=== PATIENT | female | born 1950 | race Caucasian/White ===

== ENCOUNTER → 2018-01-26 09:05 | Outpatient (CLI) | payer MEDICARE, SELFPAY ==
[2018-01-26 12:44] LABS: Alanine Aminotransferase 34 U/L (12-78); Albumin Level 3.5 gm/dL (3.4-5.0); Albumin/Globulin Ratio 0.9 (1.1-1.8); Alkaline Phosphatase 60 U/L (46-116); Anion Gap 11.5 mEq/L (5-15); Aspartate Amino Transferase 25 U/L (15-37); Bilirubin,Total 0.4 mg/dL (0.2-1.0); Blood Urea Nitrogen 20 mg/dL (7-18); Calcium 9.1 mg/dL (8.5-10.1); Carbon Dioxide 29 mmol/L (21.0-32.0); Chloride 104 mmol/L (98-107); Chol/HDL Ratio 3.5 (1-3.5); Cholesterol 156 mg/dL (140-200); Creatinine,Serum 0.88 mg/dL (0.55-1.02); Estimated Glomerular Filt Rate 64 ml/min (>60); GFR (African American) 78 ML/MIN (>60); Globulin 3.7 gm/dl (1.3-3.2); Glucose 129 mg/dL (74-106); HDL Cholesterol 44 mg/dL (29-89); LDL Cholesterol 84 mg/dL (0-130); Potassium 4.5 mmoL/L (3.5-5.1); Sodium 140 mmol/L (136-145); Total Protein,Serum 7.2 gm/dL (6.4-8.2); Triglycerides 142 mg/dL (30-200); VLDL Cholesterol 28 mg/dL (0-40)
== END ==
PROVIDERS: Visit Provider Physician Assistant
DX: E03.9 Hypothyroidism, unspecified (principal); E11.9 Type 2 diabetes mellitus without complications; E78.5 Hyperlipidemia, unspecified
CPT/HCPCS: 36415; 80053; 80061; 83036; 84443

== ENCOUNTER → 2018-06-02 11:22 | Outpatient (CLI) | payer MEDICARE, SELFPAY | PROVIDERS: PCP Family Medicine; Visit Provider Family Medicine | DX: G47.00 Insomnia, unspecified (principal); R06.83 Snoring; E66.3 Overweight; G47.33 Obstructive sleep apnea (adult) (pediatric) | CPT/HCPCS: 95806 ==

== ENCOUNTER → 2018-09-18 08:55 | Outpatient (CLI) | payer MEDICARE, SELFPAY ==
--- NOTE | 2018-09-18 08:58 | MM_ITS ---
MM Dig screening mamm BI w/CAD CAD Screening COMPARISON: Digital mammograms with CAD 07/08/2016 and analog mammograms 01/13/2010 INDICATION: There is no personal or family history of breast cancer TECHNIQUE: Standard CC and MLO images were obtained. R2 CAD reviewed. FINDINGS: The breasts are composed primarily of fat with scattered fibroglandular densities throughout each breast. There are 2 mole markers left breast on this single mole marker right breast. There are few scattered benign-appearing microcalcifications in each breast. There is a stable tiny benign-appearing nodular density near the axillary tail right breast. There is no suspicious lesion and there are no suspicious microcalcifications. IMPRESSION: Fibrofatty parenchyma with no suspicious lesion seen BI-RADS Category: 2 Benign Finding(s) RECOMMENDED FOLLOW-UP: 1YR - 1 YEAR FOLLOW-UP (A letter has been sent to the patient regarding results of the study.)
--- NOTE | 2018-09-18 08:58 | XR_ITS ---
XR DEXA axial skeleton HISTORY: ITS.REASON: POST MENOPAUSAL ORDERING PHYSICIAN: Anila Marc MD PATIENT AGE: 68 years COMPARISON: None FINDINGS: The BMD measured at the Left femoral neck is 0.883 g/cm squared with a T score of -1.1. This is considered Osteopenic according to the World Health Organization criteria. Fracture risk is Moderate. Treatment is advised. L1 L4 density has a T score of 1.5 IMPRESSION: Osteopenia with moderate fracture risk. Treatment is advised. Recommend follow-up exam September 2020
--- NOTE | 2018-09-18 10:32 | XR_ITS ---
XR knee RT 3V HISTORY: Twisting injury with pain ITS.REASON: RT KNEE PAIN ORDERING PHYSICIAN: Anila Marc MD PATIENT AGE: 68 years COMPARISON: None FINDINGS: No fracture or dislocation. No lytic or blastic change. Normal mineralization. There are minimal osteoarthritic changes of the patellofemoral joint and there is chondrocalcinosis of the lateral meniscus. Nonspecific vascular calcifications in the popliteal region are present. IMPRESSION: 1. No acute finding. 2. Degenerative changes
== END ==
PROVIDERS: PCP Family Medicine; Visit Provider Emergency Medicine
DX: Z12.31 Encounter for screening mammogram for malignant neoplasm of breast (principal); Z78.0 Asymptomatic menopausal state; M25.561 Pain in right knee
CPT/HCPCS: 73562; 77067; 77080

== ENCOUNTER → 2018-10-09 16:22 | Outpatient (CLI) | payer MEDICARE, SELFPAY ==
[2018-10-09 18:08] LABS: Ferritin 31 ng/mL (8-388); Iron 39 ug/dl (28-170)
== END ==
PROVIDERS: Visit Provider Specialist
DX: D64.9 Anemia, unspecified (principal); G25.81 Restless legs syndrome; G47.33 Obstructive sleep apnea (adult) (pediatric)
CPT/HCPCS: 36415; 82728; 83540

== ENCOUNTER → 2019-01-04 08:22 | Outpatient (CLI) | payer MEDICARE, SELFPAY ==
[2019-01-04 10:24] LABS: Alanine Aminotransferase 37 U/L (12-78); Albumin Level 3.5 gm/dL (3.4-5.0); Albumin/Globulin Ratio 0.9 (1.1-1.8); Alkaline Phosphatase 55 U/L (46-116); Anion Gap 14.2 mEq/L (5-15); Aspartate Amino Transferase 23 U/L (15-37); Bilirubin,Total 0.8 mg/dL (0.2-1.0); Blood Urea Nitrogen 15 mg/dL (7-18); Calcium 8.9 mg/dL (8.5-10.1); Carbon Dioxide 27 mmol/L (21.0-32.0); Chloride 101 mmol/L (98-107); Chol/HDL Ratio 4.1 (1-3.5); Cholesterol 172 mg/dL (140-200); Creatinine,Serum 0.88 mg/dL (0.55-1.02); Estimated Glomerular Filt Rate 64 ml/min (>60); GFR (African American) 78 ML/MIN (>60); Glucose 178 mg/dL (74-106); HDL Cholesterol 42 mg/dL (29-89); LDL Cholesterol 92 mg/dL (0-130); Potassium 4.2 mmoL/L (3.5-5.1); Sodium 138 mmol/L (136-145); Total Protein,Serum 7.5 gm/dL (6.4-8.2); Triglycerides 188 mg/dL (30-200); VLDL Cholesterol 38 mg/dL (0-40)
[2019-01-04 10:31] LABS: Hemoglobin A1C 7.9 % (0.0-7.0)
== END ==
PROVIDERS: Visit Provider Nurse Practitioner Family
DX: E11.9 Type 2 diabetes mellitus without complications (principal); E78.5 Hyperlipidemia, unspecified; I10 Essential (primary) hypertension; Z79.84 Long term (current) use of oral hypoglycemic drugs
CPT/HCPCS: 36415; 80053; 80061; 83036

== ENCOUNTER → 2019-02-19 08:35 | Outpatient (POV) | payer MEDICARE, SELFPAY | PROVIDERS: Visit Provider Nurse Practitioner Family | DX: Z00.00 Encounter for general adult medical examination without abnormal findings (principal) ==

== ENCOUNTER → 2019-04-09 08:40 | Outpatient (POV) | payer MEDICARE, SELFPAY | PROVIDERS: PCP Family Medicine; Visit Provider Nurse Practitioner Family | DX: Z00.00 Encounter for general adult medical examination without abnormal findings (principal) ==

== ENCOUNTER → 2019-06-25 09:20 | Outpatient (CLI) | payer MEDICARE, SELFPAY ==
[2019-06-25 10:57] LABS: Alanine Aminotransferase 44 U/L (12-78); Albumin Level 3.4 gm/dL (3.4-5.0); Albumin/Globulin Ratio 0.9 (1.1-1.8); Alkaline Phosphatase 46 U/L (46-116); Anion Gap 12.3 mEq/L (5-15); Aspartate Amino Transferase 29 U/L (15-37); Bilirubin,Total 0.5 mg/dL (0.2-1.0); Blood Urea Nitrogen 16 mg/dL (7-18); Calcium 8.9 mg/dL (8.5-10.1); Carbon Dioxide 29 mmol/L (21.0-32.0); Chloride 102 mmol/L (98-107); Chol/HDL Ratio 3.2 (1-3.5); Cholesterol 155 mg/dL (140-200); Creatinine,Serum 0.92 mg/dL (0.55-1.02); Estimated Glomerular Filt Rate 61 ml/min (>60); Free T4 (Free Thyroxine) 0.91 ng/dl (0.76-1.46); GFR (African American) 74 ML/MIN (>60); Globulin 3.6 gm/dl (1.3-3.2); Glucose 198 mg/dL (74-106); HDL Cholesterol 49 mg/dL (29-89); LDL Cholesterol 74 mg/dL (0-130); Potassium 4.3 mmoL/L (3.5-5.1); Sodium 139 mmol/L (136-145); Triglycerides 159 mg/dL (30-200); VLDL Cholesterol 32 mg/dL (0-40)
[2019-06-25 12:37] LABS: Hemoglobin A1C 8.2 % (0.0-7.0)
== END ==
PROVIDERS: Visit Provider Physician Assistant
DX: E11.9 Type 2 diabetes mellitus without complications (principal); E78.5 Hyperlipidemia, unspecified; E03.9 Hypothyroidism, unspecified; I10 Essential (primary) hypertension; Z79.84 Long term (current) use of oral hypoglycemic drugs
CPT/HCPCS: 36415; 80053; 80061; 83036; 84439; 84443

== ENCOUNTER → 2019-09-21 08:25 | Outpatient (CLI) | payer MEDICARE, SELFPAY ==
[2019-09-21 10:41] LABS: Hemoglobin A1C 10.1 % (0.0-7.0)
[2019-09-21 13:39] LABS: Alanine Aminotransferase 58 U/L (12-78); Albumin Level 3.7 gm/dL (3.4-5.0); Albumin/Globulin Ratio 1.1 (1.1-1.8); Alkaline Phosphatase 51 U/L (46-116); Amylase 99 U/L (25-115); Anion Gap 15.1 mEq/L (5-15); Aspartate Amino Transferase 53 U/L (15-37); Bilirubin,Total 0.7 mg/dL (0.2-1.0); Blood Urea Nitrogen 20 mg/dL (7-18); Calcium 9.3 mg/dL (8.5-10.1); Carbon Dioxide 27 mmol/L (21.0-32.0); Chloride 99 mmol/L (98-107); Chol/HDL Ratio 3.6 (1-3.5); Cholesterol 167 mg/dL (140-200); Creatinine,Serum 1.61 mg/dL (0.55-1.02); Estimated Glomerular Filt Rate 32 ml/min (>60); Free T4 (Free Thyroxine) 1.29 ng/dl (0.76-1.46); GFR (African American) 39 ML/MIN (>60); Globulin 3.5 gm/dl (1.3-3.2); Glucose 204 mg/dL (74-106); HDL Cholesterol 47 mg/dL (29-89); LDL Cholesterol 74 mg/dL (0-130); Lipase 304 u/L (73-393); Potassium 4.1 mmoL/L (3.5-5.1); Sodium 137 mmol/L (136-145); Thyroid Stimulating Hormone 3.66 uIU/ml (0.358-3.740); Total Protein,Serum 7.2 gm/dL (6.4-8.2); Triglycerides 228 mg/dL (30-200); VLDL Cholesterol 46 mg/dL (0-40)
== END ==
PROVIDERS: Visit Provider Physician Assistant
DX: R11.2 Nausea with vomiting, unspecified (principal); E03.9 Hypothyroidism, unspecified; E11.9 Type 2 diabetes mellitus without complications; E78.5 Hyperlipidemia, unspecified; R00.2 Palpitations
CPT/HCPCS: 36415; 80053; 80061; 82150; 83036; 83690; 84439; 84443; 93225; 93226

== ENCOUNTER → 2019-10-18 09:48 | Outpatient (CLI) | payer MEDICARE, SELFPAY ==
--- NOTE | 2019-10-18 09:51 | MM_ITS ---
PROCEDURE: MM DIG SCREENING MAMM BI W/CAD CLINICAL INDICATION: SCREENING There is a history of breast cancer patient's sister COMPARISON: DIGMAMMS MAMMOGRAM SCREEN-CREW CALLER N/C from 01/13/2010 [facility] DIG MAMM-SCREEN MIK from 07/08/2016 [facility] MM Dig screening mamm BI w/CAD from 09/18/2018 TECHNIQUE: Standard CC and MLO images and 3D Tomosynthesis was obtained. R2 CAD reviewed. FINDINGS: Breasts are composed primarily of fat with scattered fibroglandular densities throughout each breast. There are few benign-appearing microcalcifications in each breast. There are stable tiny nodular densities deep within the right breast near the axillary tail likely intramammary node. Ashwin images were reviewed. There is no suspicious lesion and no suspicious microcalcifications. IMPRESSION: Fibrofatty parenchyma with no suspicious lesions seen BI-RAD Category: 2 Benign Finding(s) FOLLOW-UP: 1YR 1 Year Follow-up (A letter has been sent to the patient regarding results of the study.) Dictated by: Dr. Rhett Cao MD 10/20/2019 10:[address] Rhett Cao MD in [place] 10/20/2019 10:20
== END ==
PROVIDERS: PCP Family Medicine; Visit Provider Family Medicine
DX: Z12.31 Encounter for screening mammogram for malignant neoplasm of breast (principal)
CPT/HCPCS: 77063; 77067

== ENCOUNTER → 2019-11-19 15:16 | Outpatient (CLI) | payer MEDICARE, SELFPAY ==
[2019-11-19 17:44] LABS: Ferritin 60.6 ng/ml (11.1-264)
== END ==
PROVIDERS: Visit Provider Specialist
DX: E83.10 Disorder of iron metabolism, unspecified (principal)
CPT/HCPCS: 36415; 82728

== ENCOUNTER → 2020-02-04 17:11 | Outpatient (CLI) | payer MEDICARE, SELFPAY ==
[2020-02-04 20:42] LABS: Ferritin 37.7 ng/ml (11.1-264)
== END ==
PROVIDERS: Visit Provider Nurse Practitioner Family
DX: E83.10 Disorder of iron metabolism, unspecified (principal); G25.81 Restless legs syndrome
CPT/HCPCS: 36415; 82728

== ENCOUNTER → 2020-02-07 08:35 | Outpatient (CLI) | payer MEDICARE, SELFPAY ==
[2020-02-07 09:03] LABS: Basophils # 0.1 K/mm3 (0-0.2); Basophils % 0.6 % (0.1-2.0); Eosinophils # 0.4 K/mm3 (0.0-0.4); Eosinophils % 4.6 % (0.1-12.0); Hematocrit 39.2 % (37.0-47.0); Hemoglobin 13.3 g/dL (12.2-16.2); Lymphocytes # 2.4 K/mm3 (0.7-4.5); Lymphocytes % 26.8 % (10-50); Mean Corpuscular HGB Conc 33.9 g/dL (31.8-35.4); Mean Corpuscular Hemoglobin 28.8 pg (27.0-31.2); Mean Corpuscular Volume 85.1 fl (81-99); Mean Platelet Volume 6.8 fl (7.4-10.4); Monocytes # 0.3 K/mm3 (0.1-1.0); Monocytes % 3.8 % (1.7-9.3); Neutrophils # 5.8 K/mm3 (1.8-7.8); Neutrophils % 64.2 % (37.0-80.0); Platelet Count 309 K/mm3 (142-424); Red Blood Count 4.61 M/mm3 (4.20-5.40); Red Cell Distribution Width 13.9 % (11.5-17.5); White Blood Count 9.1 K/mm3 (4.8-10.8)
[2020-02-08 08:13] LABS: Iron 45 ug/dL (27-139); UIBC 258 ug/dL (118-369)
[2020-02-08 12:06] LABS: Iron Saturation 15 % (15-55)
== END ==
PROVIDERS: Visit Provider Nurse Practitioner Family
DX: E83.10 Disorder of iron metabolism, unspecified (principal)
CPT/HCPCS: 36415; 83540; 83550; 85025

== ENCOUNTER → 2020-04-03 08:26 | Outpatient (CLI) | payer MEDICARE, SELFPAY ==
[2020-04-03 09:07] LABS: Chloride 94 mmol/L (98-107)
[2020-04-03 09:08] LABS: Potassium 4.4 mmoL/L (3.5-5.1); Sodium 132 mmol/L (136-145)
[2020-04-03 09:10] LABS: Alanine Aminotransferase 31 U/L (12-78); Alkaline Phosphatase 83 U/L (38-126); Aspartate Amino Transferase 36 U/L (14-36); Bilirubin,Total 0.6 mg/dl (0.2-1.3); Blood Urea Nitrogen 25 mg/dl (7-17); Estimated Glomerular Filt Rate 45 ml/min (>60); GFR (African American) 54 ML/MIN (>60)
[2020-04-03 09:11] LABS: Albumin Level 3.7 g/dl (3.5-5.0); Albumin/Globulin Ratio 1.1 (1.1-1.8); Anion Gap 14.4 mEq/L (5-15); Calcium 9.1 mg/dl (8.4-10.2); Carbon Dioxide 28 mmol/L (22.0-30.0); Chol/HDL Ratio 3.9 (1-3.5); Cholesterol 199 mg/dl (140-200); Globulin 3.3 g/dL (1.3-3.2); HDL Cholesterol 51 mg/dl (40-60); Triglycerides 367 mg/dl (30-150); VLDL Cholesterol 73 mg/dL (0-40)
[2020-04-03 09:22] LABS: Direct LDL Cholesterol 103.59 mg/dL (100-129)
[2020-04-03 09:43] LABS: Glucose 588 mg/dl (74-100)
[2020-04-03 10:09] LABS: Hemoglobin A1C > 14.0 % (4.0-6.0)
== END ==
PROVIDERS: Visit Provider Nurse Practitioner Family
DX: E11.9 Type 2 diabetes mellitus without complications (principal); Z79.84 Long term (current) use of oral hypoglycemic drugs
CPT/HCPCS: 36415; 80053; 80061; 83036

== ENCOUNTER → 2020-04-07 07:37 | Outpatient (CLI) | payer MEDICARE, SELFPAY ==
--- NOTE | 2020-04-07 07:41 | CT_ITS ---
PROCEDURE: CT LUNG SCREENING CLINICAL INDICATION: H/O NICOTINE DEPENDENCE 30 pack year smoking history. Quit smoking 7-8 years ago. COMPARISON: No exams were available for comparison TECHNIQUE: The exam was performed on a GE Light Speed [address] scanner using 2.90 mGy CTDI. A low dose helical CT CHEST was performed on a multi-detector scanner. All CT scans at the facility use one or more dose reduction, viz: automated exposure control, ma/kV adjustment per patient size (including targeted exams where dose is matched to indication, i.e. head), or iterative reconstruction technique. The LDCT was performed in a facility that meets the criteria for the screening program. Data regarding this exam was submitted to ACR which is an approved registry. The order for this exam indicates that it came as a result of a lung cancer screening counseling shard decision-making visit that included all the elements required of such a visit including smoking cessation. The radiologist interpreting this exam meets the CMS criteria for the LDCT lung cancer screening program. The exam is reported using the Lung-RADS classification scale and reported to the ACR registry. NOTE: This study was performed for the specific purposes of lung cancer screening and is not an alternative to diagnostic chest CT. RADIATION DOSE: CTDI vol(CT dose Index-volume) = 2.90mG DLP (Dose Length Product) = 101.34 mGcm Lung Rads Category: FINDINGS: There is a small ground-glass opacity in the right upper lobe which measures 6 mm with an additional right upper lobe ground-glass opacity 4 mm and faint ground-glass attenuation in the right upper lobe anteriorly. Calcified granuloma right middle lobe. OTHER FINDINGS: There is a small precarinal lymph node at 10 mm. Coronary artery calcifications are noted. Degenerative change thoracic IMPRESSION: Lung rads category 3, probably benign. Scattered ground-glass opacities right upper lobe. Suggest 6-12 month follow-up Dictated by: Duane Watkins MD 04/21/2020 07:41 Duane Watkins MD in [place] 04/21/2020 07:41
== END ==
PROVIDERS: PCP Family Medicine; Visit Provider Nurse Practitioner Family
DX: Z87.891 Personal history of nicotine dependence (principal); Z12.2 Encounter for screening for malignant neoplasm of respiratory organs

== ENCOUNTER → 2020-06-26 12:30 | Outpatient (CLI) | payer MEDICARE, SELFPAY ==
[2020-06-26 15:03] LABS: Ferritin 77.8 ng/ml (11.1-264)
== END ==
PROVIDERS: Visit Provider Nurse Practitioner Family
DX: E83.10 Disorder of iron metabolism, unspecified (principal)
CPT/HCPCS: 36415; 82728

== ENCOUNTER → 2020-11-13 13:47 | Outpatient (CLI) | payer MEDICARE, MEDICAID, SELFPAY ==
--- NOTE | 2020-11-13 13:50 | CT_ITS ---
PROCEDURE: CT CHEST WO CON CLINICAL INDICATION: PULMONARY NODULE Right sided Follow up [facility] 04/07/20 COMPARISON: CT CT LUNG SCREENING from 04/07/2020 TECHNIQUE: Axial images obtained with sagittal and coronal reformats. All CT scans at the facility use one or more dose reduction, viz: automated exposure control, ma/kV adjustment per patient size (including targeted exams where dose is matched to indication, i.e. head), or iterative reconstruction technique. FINDINGS: No mediastinal or hilar mass or adenopathy. Small nodes are present in the mediastinum as before. Coronary artery calcifications are present. COPD changes with evidence of old granulomatous disease. There is mild bronchial thickening. Previously noted right upper lobe nodules are longer apparent and may have represented inflammatory nodules or atelectasis. No suspicious nodules are evident. Left hemidiaphragm is elevated posteriorly. No effusions or infiltrates. 9 mm hypodensity is present involving the right hepatic lobe medially and may be due to a cyst or hemangioma. Small hypodensity is present in the central aspect of the spleen nonspecific. Suspect small left renal cyst anteriorly at 7 mm. No acute bony findings. Small peripancreatic nodes are present IMPRESSION: 1. Previously noted ground-glass nodules in the right upper lobe no longer apparent. Recommend resuming annual LDCT 2. Other nonacute findings as described above. Dictated by: Duane Watkins MD 11/14/2020 11:05 Duane Watkins MD in [place] 11/14/2020 11:05
--- NOTE | 2020-11-13 13:50 | MM_ITS ---
PROCEDURE: MM DIG SCREENING MAMM BI W/CAD Digital Breast Tomosynthesis Included CLINICAL INDICATION: SCREENING There is a history of breast cancer in the patient's sister diagnosed in her 50s. COMPARISON: MG [facility] DIG MAMM-SCREEN MIK from 07/08/2016 [facility] MM Dig screening mamm BI w/CAD from 09/18/2018 MG MM DIG SCREENING MAMM BI W/CAD from 10/18/2019 TECHNIQUE: Standard CC and MLO images and 3D Tomosynthesis was obtained. R2 CAD reviewed. FINDINGS: Breasts are composed primarily of with scattered fibroglandular densities seen throughout each breast. There is a mole marker upper central portion right breast. There are 2 mole markers upper outer left breast. There are couple of benign-appearing microcalcifications in each breast. There is a stable small benign-appearing nodular density upper-outer right breast likely low-lying or intramammary node. There is a small node lower left axilla as well. There is no suspicious lesion in either breast and no suspicious microcalcifications. IMPRESSION: Fibrofatty parenchyma with no suspicious lesions seen BI-RAD Category: 2 Benign Finding(s) FOLLOW-UP: 1YR 1 Year Follow-up (A letter has been sent to the patient regarding results of the study.) Dictated by: Dr. Rhett Cao MD 11/22/2020 09:53 Dr. Rhett Cao MD in [place] 11/22/2020 09:53
--- NOTE | 2020-11-13 13:51 | XR_ITS ---
PROCEDURE: XR DEXA AXIAL SKELETON CLINICAL HISTORY: SCREENING COMPARISON: CR DEXAAX XR DEXA axial skeleton from 09/18/2018 FINDINGS: The right hip BMD is 0.741 with a T-score of -1.0. The left hip BMD is 0.750 with a T-score of -0.9. The lumbar spine BMD is 1.299 with a T-score of 2.3. IMPRESSION: This patient is considered normal according to the World Health Organization criteria. Fracture risk is low. Based on these results a follow-up exam is recommended in 2 year. Dictated by: Duane Watkins MD 12/21/2020 07:32 Duane Watkins MD in [place] 12/21/2020 07:32
== END ==
PROVIDERS: PCP Nurse Practitioner Family; Visit Provider Nurse Practitioner Family
DX: R91.1 Solitary pulmonary nodule (principal); Z12.31 Encounter for screening mammogram for malignant neoplasm of breast; Z13.820 Encounter for screening for osteoporosis; Z78.0 Asymptomatic menopausal state
CPT/HCPCS: 71250; 77063; 77067; 77080

== ENCOUNTER → 2021-11-20 08:06 | Outpatient (CLI) | payer MEDICARE, SELFPAY ==
[2021-11-20 09:49] LABS: Alanine Aminotransferase 51 U/L (12-78); Albumin Level 4.1 g/dl (3.5-5.0); Albumin/Globulin Ratio 1.3 (1.1-1.8); Alkaline Phosphatase 72 U/L (38-126); Anion Gap 12.4 mEq/L (5-15); Aspartate Amino Transferase 66 U/L (14-36); Bilirubin,Total 0.9 mg/dl (0.2-1.3); Blood Urea Nitrogen 32 mg/dl (7-17); Calcium 9.6 mg/dl (8.4-10.2); Carbon Dioxide 27 mmol/L (22.0-30.0); Chloride 101 mmol/L (98-107); Chol/HDL Ratio 4.7 (1-3.5); Cholesterol 246 mg/dl (140-200); Estimated Glomerular Filt Rate 45 ml/min (>60); GFR (African American) 54 ML/MIN (>60); Globulin 3.2 g/dL (1.3-3.2); Glucose 287 mg/dl (74-100); HDL Cholesterol 52 mg/dl (40-60); Potassium 4.4 mmoL/L (3.5-5.1); Sodium 136 mmol/L (136-145); Total Protein,Serum 7.3 g/dl (6.3-8.2); Triglycerides 352 mg/dl (30-150); VLDL Cholesterol 70 mg/dL (0-40)
[2021-11-20 10:00] LABS: Direct LDL Cholesterol 119.63 mg/dL (100-129)
[2021-11-20 10:05] LABS: Free T4 (Free Thyroxine) 1.26 ng/dl (0.78-2.19)
== END ==
PROVIDERS: Visit Provider Physician Assistant
DX: E03.9 Hypothyroidism, unspecified (principal); E78.5 Hyperlipidemia, unspecified; E11.9 Type 2 diabetes mellitus without complications; Z79.84 Long term (current) use of oral hypoglycemic drugs
CPT/HCPCS: 36415; 80053; 80061; 84439; 84443

== ENCOUNTER → 2022-08-21 11:41 | Outpatient (CLI) | payer MEDICARE, MEDICAID, SELFPAY ==
--- NOTE | 2022-08-21 11:48 | XR_ITS ---
PROCEDURE INFORMATION: Exam: XR Lumbosacral Spine Exam date and time: 08/21/2022 11:49 AM Age: 71 years old Clinical indication: Pain and injury or trauma; Fall; Blunt trauma (contusions or hematomas); Low back pain TECHNIQUE: Imaging protocol: Radiologic exam of the lumbosacral spine. Views: 2 or 3 views. COMPARISON: No relevant prior studies available. FINDINGS: Bones/joints: Lumbar spondylosis with multilevel disc degeneration. 2 mm degenerative anterolisthesis of L4 with respect to L5. Multilevel advanced hypertrophic facet changes. Soft tissues: Unremarkable. IMPRESSION: 1. No evidence of acute osseous injury. 2. Lumbar spondylosis with extensive changes of disc degeneration as described above.
== END ==
PROVIDERS: PCP Family Medicine; Visit Provider Family Medicine
DX: M54.40 Lumbago with sciatica, unspecified side (principal)
CPT/HCPCS: 72100

== ENCOUNTER → 2022-10-01 13:36 | Outpatient (CLI) | payer MEDICARE, MEDICAID, SELFPAY ==
--- NOTE | 2022-10-01 13:41 | MR_ITS ---
FINAL REPORT TECHNIQUE: Multiplanar MR without contrast CLINICAL HISTORY: LOW BACK PAIN WITH RADIATION pain down bilateral legs x 6 months numbness and pain down right leg FINDINGS: Sagittal images show normal vertebral height. There is 3 mm of anterolisthesis of L4 on 5. Diffuse disc desiccation is identified. Marrow signal pattern is unremarkable. T12-L1: Mild annular disc bulge. L1-2: Mild annular disc bulge with mild bilateral neural foraminal narrowing. L2-3: Moderate annular disc bulge with left lateral canal inferior disc extrusion. Moderate central canal stenosis. Left lateral recess stenosis and moderate bilateral neural foraminal narrowing. L3-4: Moderate annular disc bulge and moderate facet arthropathy. Moderate central canal stenosis and moderate bilateral neural foraminal narrowing. L4-5: Moderate annular disc bulge and severe facet arthropathy. Severe central canal stenosis. Moderate bilateral neural foraminal narrowing. L5-S1: Small right paracentral disc protrusion. Moderate facet arthropathy. There is contact of the right S1 nerve root from the right side of the disc protrusion. IMPRESSION: Advanced degenerative changes, most pronounced at L2-3, L3-4, and L4-5. Reviewed, Interpreted and Dictated by Adonis Coronado MD Transcribed by Yvonne Benton Authenticated and [facility]
== END ==
PROVIDERS: PCP Family Medicine; Visit Provider Family Medicine
DX: M54.40 Lumbago with sciatica, unspecified side (principal)
CPT/HCPCS: 72148; 76376

== ENCOUNTER 2022-11-26 12:27 | Emergency (ER) | payer MEDICARE, MEDICAID, SELFPAY ==
[2022-11-26 12:28] VITALS: BP 159/76; PULSE 85; RESP 18; TEMP 36.9; O2SAT 96; BMI 29.9
[2022-11-26 12:39] VITALS: BP 159/76; PULSE 81; O2SAT 96
--- NOTE | 2022-11-26 12:41 | HMH.EDGENADL ---
Discharge Plan Disposition Patient Disposition: Home, Self-Care Prescriptions Prescriptions: No Action hydroxyzine pamoate 25 mg capsule 50 mg PO QHS 30 Days Qty: 60 aspirin [Aspir-81] 81 mg tablet,delayed release (DR/EC) 81 mg PO DAILY sertraline 50 mg tablet 100 mg PO DAILY Slow Fe 142 mg (45 mg iron) tablet extended release 284 mg PO DAILY 30 Days Qty: 60 0RF Rx Instructions: start with 1 tab daily x 1-2 weeks. If no GI side effects, increase to 2 tabs daily levothyroxine 100 mcg tablet 100 mcg PO DAILY glimepiride 4 mg tablet 8 mg PO DAILY sitagliptin phosphate 100 mg tablet 100 mg PO Label Comments: TK 1 T PO QD gabapentin 300 mg capsule 300 mg PO HS Trulicity 4.5 mg/0.5 mL pen injector 4.5 mg SQ WEEKLY colestipol 1 gram tablet 1 g PO BID Rx Instructions: swallow whole tab w/any liquid;do not crush/chew/cut;administer other meds 1hr before/4hr after taking dose metoprolol succinate 25 mg tablet extended release 24 hr 25 mg PO DAILY triamterene-hydrochlorothiazid 37.5-25 mg tablet 1 tab PO DAILY alendronate 70 mg tablet 70 mg PO ONCE omeprazole 20 mg capsule,delayed release(DR/EC) 20 mg PO DAILY pramipexole 0.25 mg tablet 0.75 mg PO QHS 90 Days Qty: 270 1RF Rx Instructions: Take 3 tabs 2 hours prior to bedtime. Caution may cause sleepiness. pravastatin 20 mg tablet 20 mg PO DAILY Referrals Follow up/Referrals: Bret Boles MD [Primary Care Provider] - See instructions Activity Restrictions/Add. Instructions Additional Instructions/Restrictions: Your leg pain today is nonspecific but is not consistent with a medical emergency. You have good arterial blood supply, no evidence of a DVT, no evidence of acute orthopedic emergency, additionally your x-rays did not show advanced arthritis that would be suggestive of severe osteoarthritis causing your pain. At this point your symptoms are nonspecific please keep an eye out for evolving abnormalities such as increasing redness fever swelling etc. please return to the emergency department any of those types of concerns otherwise follow-up with primary care doctor and treat this supportively with Tylenol and ibuprofen. Clinical Impressions Clinical Impression: Leg pain Discharge ED Provider: Heather Mitchell General Adult HPI General Chief complaint: Extremity Problem,Nontraumatic Stated complaint: possible blood clot in Rt leg Time Seen by Provider: 11/26/22 12:41 History of Present Illness HPI narrative: Patient is a 72-year-old female presenting with right lower leg pain. States that she has pain from her mid thigh down through her mid calf area. No soft tissue swelling. Pain is worse with flexion extension of the knee. Any movement to the right lower extremity causes pain. No erythema no warmth no fevers or chills. She has a history of superficial varicose veins and she has a follow-up appoint with vascular surgery had this taken care of but states that this pain is very different than it has been in the past. No history of DVT or PE. No chest pain or shortness of breath currently. No pain distal to her mid calf specifically on her foot. No changes in temperature noted in her foot as well. No rest pain or foot Related Data Home Medications Medication Instructions Recorded Confirmed aspirin 81 mg tablet,delayed 81 mg PO DAILY prevention 10/09/18 03/16/21 release (Aspir-) hydroxyzine pamoate 25 mg capsule 50 mg PO QHS bp 30 days #60 caps 10/09/18 03/16/21 colestipol 1 gram tablet 1 g PO BID 02/04/20 03/16/21 alendronate 70 mg tablet 70 mg PO ONCE 03/24/20 03/16/21 metoprolol succinate 25 mg 25 mg PO DAILY 03/24/20 03/16/21 tablet,extended release 24 hr omeprazole 20 mg capsule,delayed 20 mg PO DAILY 03/24/20 03/16/21 release triamterene 37.5 1 tab PO DAILY 03/24/20 03/16/21 mg-hydrochlorothiazide 25 mg tablet
--- NOTE | 2022-11-26 12:43 | PC.NURSE ---
MAXIME LEWIS at for pt orlinal
--- NOTE | 2022-11-26 12:47 | XR_ITS ---
FINAL REPORT CLINICAL HISTORY: pain COMPARISON: 09/18/2018 FINDINGS: RIGHT KNEE 3 views of the right knee were obtained. There is no acute fracture or dislocation. Visualized joint spaces are normally aligned. Joint spaces are intact. There is mild to moderate chondrocalcinosis. A linear calcification posterior to the knee has progressed since the prior exam. IMPRESSION: Mild to moderate chondrocalcinosis. Linear calcification posterior to the knee has progressed since the prior exam. Reviewed, Interpreted and Dictated by Flavio Walsh MD Transcribed by Mariangel Gomez Authenticated and . [facility]
--- NOTE | 2022-11-26 12:47 | CA_ITS ---
FINAL REPORT TECHNIQUE: Right lower extremity venous duplex was performed with augmentation and compression. CLINICAL HISTORY: pain, r/o dvt FINDINGS: Proper flow is seen throughout the deep venous system. There is no evidence of deep venous thrombosis. IMPRESSION: No deep venous thrombosis in the right lower extremity. Reviewed, Interpreted and Dictated by Flavio Walsh MD Transcribed by Mariangel Gomez Authenticated and [facility]
--- NOTE | 2022-11-26 12:47 | XR_ITS ---
FINAL REPORT CLINICAL HISTORY: pain FINDINGS: RIGHT HIP Two views of the right hip including an AP pelvis demonstrate no acute fracture or dislocation. The joint spaces appear normal. The visualized bony structures are well aligned. There are calcifications seen in the acetabular labrum. Bilateral tubal ligation clips are seen. IMPRESSION: No acute bony abnormality. Calcifications in the acetabular labrum. Bilateral tubal ligation clips are seen. Reviewed, Interpreted and Dictated by Flavio Walsh MD Transcribed by Mariangel Gomez Authenticated and [facility]
[2022-11-26 13:01] VITALS: BP 155/64; PULSE 86; O2SAT 97
[2022-11-26 13:30] VITALS: BP 153/80; PULSE 76; O2SAT 94
[2022-11-26 13:53] VITALS: BP 153/80; PULSE 76; RESP 16; TEMP 36.6; O2SAT 100
== END 2022-11-26 13:56 | disposition home or self-care (01) ==
PROVIDERS: Emergency Provider Student in an Organized Health Care Education/Training Program; PCP Family Medicine
DX: M79.604 Pain in right leg (principal)
CPT/HCPCS: 73502; 73562; 93971; 99283; 99284

== ENCOUNTER 2023-10-17 07:29 | Outpatient (CLI) | payer MEDICARE, MEDICAID, SELFPAY ==
[2023-10-17 08:25] LABS: Chloride 105 mmol/L (98-107)
[2023-10-17 08:26] LABS: Potassium 4.1 mmoL/L (3.5-5.1); Sodium 137 mmol/L (136-145)
[2023-10-17 08:28] LABS: Alanine Aminotransferase 24 U/L (12-78); Albumin/Globulin Ratio 1.1 (1.1-1.8); Alkaline Phosphatase 76 U/L (38-126); Anion Gap 14.1 mEq/L (5-15); Aspartate Amino Transferase 29 U/L (14-36); Bilirubin,Total 0.8 mg/dl (0.2-1.3); Blood Urea Nitrogen 27 mg/dl (7-17); Carbon Dioxide 22 mmol/L (22.0-30.0); Estimated Glomerular Filt Rate 44 ml/min (>60); GFR (African American) 54 ML/MIN (>60); Globulin 3.5 g/dL (1.3-3.2); Total Protein,Serum 7.5 g/dl (6.3-8.2)
[2023-10-17 08:29] LABS: Calcium 9.5 mg/dl (8.4-10.2); Chol/HDL Ratio 5.1 (1-3.5); Cholesterol 215 mg/dl (140-200); Glucose 137 mg/dl (74-100); HDL Cholesterol 42 mg/dl (40-60); Triglycerides 279 mg/dl (30-150); VLDL Cholesterol 56 mg/dL (0-40)
[2023-10-17 08:45] LABS: Free T4 (Free Thyroxine) 1.24 ng/dl (0.78-2.19)
[2023-10-17 08:46] LABS: Direct LDL Cholesterol 107.71 mg/dL (100-129)
== END 2023-10-17 23:59 ==
PROVIDERS: PCP Family Medicine; Visit Provider Physician Assistant
DX: E11.9 Type 2 diabetes mellitus without complications (principal); E03.9 Hypothyroidism, unspecified; E78.5 Hyperlipidemia, unspecified; Z79.84 Long term (current) use of oral hypoglycemic drugs
CPT/HCPCS: 36415; 80053; 80061; 84439; 84443

== ENCOUNTER 2023-12-16 10:44 | Outpatient (CLI) | payer MEDICARE, MEDICAID, SELFPAY ==
--- NOTE | 2023-12-16 10:47 | MM_ITS ---
PROCEDURE INFORMATION: Exam: MG Bilateral Screening 3D Mammography Exam date and time: 12/16/2023 10:33 AM Age: 73 years old Clinical indication: Screening examination TECHNIQUE: Imaging protocol: Bilateral Screening tomosynthesis and 2D mammography including computer-aided detection (CAD) when performed. COMPARISON: 1. MG MM DIG SCREENING MAMM BI W/CAD 11/13/2020 2:17 PM 2. MG MM DIG SCREENING MAMM BI W/CAD 10/18/2019 10:04 AM FINDINGS: MAMMOGRAPHY: Breast composition: There are scattered areas of fibroglandular density. Mass: None. Architectural distortion: None. Calcifications: No suspicious calcifications. Asymmetric density: None. Skin thickening: None. Axillary adenopathy: None. IMPRESSION: No mammographic evidence of malignancy. Annual screening is recommended unless otherwise clinically indicated. ASSESSMENT: BI-RADS Category 1: Negative
== END 2023-12-16 23:59 ==
LOC: RAD 10:45
PROVIDERS: PCP Physician Assistant; Visit Provider Physician Assistant
DX: Z12.31 Encounter for screening mammogram for malignant neoplasm of breast (principal)
CPT/HCPCS: 77063; 77067

== ENCOUNTER 2024-05-23 14:50 | Outpatient (CLI) | payer MEDICARE, MEDICAID, SELFPAY ==
--- NOTE | 2024-05-23 14:55 | CT_ITS ---
FINAL REPORT TECHNIQUE: Thin section axial images were obtained from the lung apices to the upper abdomen by computed tomography. Reformatted images were obtained and reviewed. This study was performed with techniques to keep radiation doses al low as reasonably achievable (ALARA). Individualized dose reduction techniques using automated exposure control or adjustment of mA and/or kV according to the patient's size were employed. CLINICAL HISTORY: SCREENING FORMER SMOKER QUIT 24 YEARS AGO, SMOKED 1/2 PPD FOR 27 YEARS HX OF COLON CANCER COMPARISON: Chest CT 11/13/2020 FINDINGS: CHEST CT LOW DOSE 74-year-old female, former smoker who quit 24 years ago, [id number] history. CTDI vol (mGy): 2.9 DLP (mGy-cm): 100.55 There is no axillary adenopathy. There is no mediastinal or hilar mass or adenopathy. The heart is normal in size. There is no pericardial or pleural effusion. Scarring is present in the right middle lobe and lingula. A calcified granuloma is present in the right middle lobe. Lung window images demonstrate no suspicious infiltrate or nodule. Limited images of the upper abdomen reveals that the gallbladder has been surgically resected.. IMPRESSION: Lung-RADS category 1. Recommend 12 month follow up low dose chest CT. Reviewed, Interpreted and Dictated by Flavio Walsh MD Transcribed by Felicia Estrada Authenticated and [facility]
--- NOTE | 2024-05-23 14:57 | XR_ITS ---
FINAL REPORT TECHNIQUE: Bone densitometry calculations of the lumbar spine and left hip were obtained. CLINICAL HISTORY: SCREENING COMPARISON: 11/13/2020 FINDINGS: Using L1-4, the bone mineral density of the spine is 1.377 g/cm2, corresponding to T-score of 3.0. Using the left hip, the bone mineral density of the femoral neck is 0.751 g/cm2, corresponding to a T-score of -0.9. NOTE: T-score: Standard deviation compared with peak bone mass of young adult mean. *Following the recommendations of the International Society of Bone densitometry, classification of hip BMD is based on the lower of two T-scores; total hip or femoral neck. IMPRESSION: Normal bone mineral density of the lumbar spine and left hip. Reviewed, Interpreted and Dictated by Flavio Walsh MD Transcribed by Felicia Estrada Authenticated and [facility]
== END 2024-05-23 23:59 | disposition home or self-care (01) ==
LOC: RAD 14:51
PROVIDERS: PCP Physician Assistant; Visit Provider Physician Assistant
DX: M81.0 Age-related osteoporosis without current pathological fracture (principal); Z87.891 Personal history of nicotine dependence
CPT/HCPCS: 71271; 77080

== ENCOUNTER 2024-05-29 13:31 | Outpatient (POV) | payer MEDICARE, MEDICAID, SELFPAY | END 2024-05-29 23:59 | disposition home or self-care (01) | LOC: SC 13:34 | PROVIDERS: Visit Provider Dermatology | DX: Z00.00 Encounter for general adult medical examination without abnormal findings (principal) ==

== ENCOUNTER 2024-08-15 06:59 | Day surgery (SDC) | payer MEDICARE, MEDICAID, SELFPAY ==
[2024-06-19 13:23] VITALS: BMI 35.4
--- OUTSIDE RECORDS SUMMARY | 2024-08-15 07:01 | XMS_ITS | Encounter Summary ---
Author Organization Healthcare Address [address] [place] [address] Care Team Providers Care Bricklayer Supervisor Name Role Phone Sammie Meadows Primary Care Provider [phone] Reason for Visit * Reason Onset Date Comments Med Refill 10/27/2022 Encounter Details Date Type Department Care Team ([facility] st Contact Info) Description 10/27/2022 Refill Medical Office Building Obstetrics and Gynecology [address], [address] [place] [address] Colette Barriga, RN [facility] Social History Tobacco Use Types Packs/Day Years Used Date Smoking Tobacco: Former Cigarettes Q uit: 2000 Smokeless Tobacco: Never Alcohol Use Standard Drinks/Week Comments Never 0 (1 standard drink = 0.6 oz pur e alcohol) Comments Unknown Sex and Gender Information Value Date Recorded Sex Assigned at Not on file Legal Sex Female 8:28 PM EDT Gender Identity Not on file Sexual Orientation Not on file documented as of this encounter Plan of Treatment Not on file documented as of this encounter Visit Diagnoses Not on filedocumented in this encounter Additional Health Concerns Assessment Noted Time A fall risk assessment has been complete d for the patient 09/16/2022 1:12 PM EST documented as of this encounter Care Teams Bricklayer Supervisor Relationship Specialty Start Date End Date Sammie Meadows PA [address] [facility] [address] [place] [id number] PCP - General 07/13/22 documented as of this encounter
--- OUTSIDE RECORDS SUMMARY | 2024-08-15 07:01 | XMS_ITS | Encounter Summary ---
Author Organization Healthcare Address [address] [id number] Care Team Providers Care Golf Club Maker Name Role Phone Sammie Meadows Primary Care Provider Reason for Visit * Reason Comments Urinary Incontinence Encounter Details Date Type Department Care Team ([facility] Contact Info) Description 09/16/2022 1:00 PM EST Office Visit Medical Office Building Obstetrics and Gynecology [address], [address] [place] [address] Donny Gonzalez MD [address] [place] [address] Urgency incontinence (Primary Dx); Stress incontinence; Urinary urgency; Nocturia; Vaginal atrophy; Yeast infection involving the vagina and surrounding area Social History Tobacco Use Types Packs/Day Years Used Date Smoking Tobacco: Former Cigarettes Q uit: 1999 Smokeless Tobacco: Never Tobacco Cessation:Counseling Given: Not Answered Alcohol Use Standard Drinks/Week Comments Never 0 (1 standard drink = 0.6 oz pur e alcohol) Comments Unknown Sex and Gender Information Value Date Recorded Sex Assigned at Not on file Legal Sex Female 8:28 PM EDT Gender Identity Not on file Sexual Orientation Not on file COVID-19 Exposure Response Date Recorded In the last 10 days, have yo u been in contact with someone who was confirmed or suspected to have Coronavirus/COVID-19? No / Unsure 09/16/2022 12:51 PM EST documented as of this encounter Last Filed Vital Signs Vital Sign Reading Time Taken Comments Blood Pressure 116/79 09/16/2022 1:02 PM EST Pulse - - Temperature - - Respiratory Rate - - Oxygen Saturation - - Inhaled Oxygen Concentration - - Weight 82.5 kg (181 lb 14.1 oz) 09/16/2022 1:02 PM EST Height 165.1 cm (5' 5 ) 09/16/2022 1:02 PM EST Body Mass Index 30.27 09/16/2022 1:02 PM EST documented in this encounter Patient Instructions * Attachments The following attachments cannot be sent through Care Everywhere. * Incontinence in Women, Treating with Medicine (Czech) * Incontinence in Women, Treating: Nonsurgical Methods (Czech) * Kegel Exercises (Czech) * Urinary Incontinence, Female (Adult) (Czech) * Overactive Bladder Syndrome (OAB) (Czech) * Vaginitis, Atrophic (Czech) documented in this encounter Miscellaneous Notes * Progress Notes - Donny Gonzalez MD - 09/16/2022 1:00 PM EST Female Pelvic Medicine and Reconstructive Surgery Note Subjective Chief Complaint Patient presents with Urinary Incontinence Zaria Hugo is a 72 y.o. female here for a new gynecologic visit. 72 yo female presents for evaluation of urinary incontinence. She states she has had urinary incontinence for approximately 20 years. She has not taken any medication for this problem. She endorses urgency-predominant JOSE EDUARDO. She uses 4 incontinence pads per day that she usually soaks. She reports the leakage of urine is significant. She also admits to urinary urgency and voids approximately 4-5 times during the daytime. She also awakes 4-5 times during the nighttime to urinate. She has no obstructive symptoms including urinary hesitancy, intermittency, straining, and sensation of incomplete emptying. She reports postvoid dribbling but denies double voiding. She has not seen blood in the u rine and denies recurrent UTI and history of kidney stones. She reports she may have a yeast infection and endorses some burning over the introitus but denies suprapubic tenderness and flank pain. She has no bowel complaints including constipation, diarrhea, and fecal incontinence. She is not currently sexually active. She denies sensation of a vaginal bulge. OBGYN history: . x 3. Stillborn x 1. One son in 1998 of congenital heart failure. One son is alive. Largest baby: 7 lbs. 3 oz. Last Pap smear was in 2018 - denies history of abnormal Pap smears. Up-to-date with MM. Last colonoscopy was last year which was negative for malignancy per patient report. Past Medical History She has a past medical history of Acid reflux, Diabetes (CMS/HCC), Disease of thyroid gland, and Restless leg syndrome. Past Surgical History She has a past surgical history that includes Colon surgery; Tubal ligation; Sinus surgery; and Vein Surgery. Social History She reports that she quit smoking about 23 years ago. Her smoking use included cigarettes. She has never used smokeless tobacco. She reports that she does not drink alcohol and does not use drugs. Family History Her family history includes Cancer in her sister; Heart Problem in her father; Hypertension in her father; Macular degeneration in her mother; Stroke in her father. Current Medications She has a current medication list which includes the following prescription(s): estradiol, farxiga,gabapentin, glimepiride, lantus solostar, metoprolol succinate xl, nystatin-triamcinolone, pramipexole, pravastatin, ramipril, sertraline, triamterene-hydrochlorothiazide, trulicity, and gemtesa. Allergies Allergies Allergen Reactions Hydrocodone Hallucinations Review of Systems Constitutional: Negative. HENT: Negative. Respiratory: Negative. Cardiovascular: Negative. Gastrointestinal: Negative. Genitourinary: Positive for enuresis and urgency. Negative for decreased urine volume, difficulty urinating, dysuria, flank pain, frequency, hematuria, pelvic pain, vaginal bleeding and vaginal discharge. Musculoskeletal: Negative. Neurological: Negative. Hematological: Negative. Psychiatric/Behavioral: Negative. Objective Visit Vitals BP 116/79 Body mass index is 30.27 kg/m??. Physical Exam Constitutional: Appearance: Normal appearance. Genitourinary: Urethral meatus normal. Right Labia: skin changes. Right Labia: No rash, tenderness or lesions. Left Labia: skin changes. Left Labia: No tenderness, lesions or rash. Labial fusion present. Vulva exam comments: Atrophic. Scarring of clitoral allred, bilateral agglutination of labia majora and minora. Some discoloration of tissue consistent with lichen sclerosus vs severe atrophy. Also, minimal erythema was noted over the bilateral groin area consistent with yeast infection. No vaginal discharge, erythema, bleeding, ulceration or granulation tissue. No vaginal prolapse present. Severe vaginal atrophy present. Right Adnexa: not palpable. Left Adnexa: not palpable. No cervical motion tenderness, discharge or lesion. Uterus is not enlarged or tender. No urethral hypermobility or stress urinary incontinence with cough stress test present. Bladder is tender (mild). Pelvic Floor: Levator muscle strength is 2/5. Levator ani is tender (bilateral, mild) and obturator internus is tender (bilateral, mild). No asymmetrical contractions present and no pelvic spasms present. Anal wink absent and BC reflex absent. Symmetrical pelvic sensation. Pelvic exam was performed with patient in the lithotomy position. Rectum: No external hemorrhoid. Pulmonary: Effort: Pulmonary effort is normal. Abdominal: General: Abdomen is flat. Palpations: Abdomen is soft. Hernia: There is no hernia in the left inguinal area or right inguinal area. Musculoskeletal: General: Normal range of motion. Cervical back: Normal range of motion. Neurological: Mental Status: She is alert. Skin: General: Skin is warm. Vitals reviewed. Exam conducted with a looping inspector present. Post void residual volume 2 minute(s) after voiding was 0 ml via bladder scanner, obtained by Jeanne Meza MA. Assessment/Plan Problem List Items Addressed This Visit Genitourinary Urgency incontinence - Primary Relevant Medications Vibegron (Gemtesa) 75 MG tablet Stress incontinence Vaginal atrophy Relevant Medications estradiol (Estrace) 0.1 MG/GM vaginal cream Other Urinary urgency Relevant Medications Vibegron (Gemtesa) 75 MG tablet Nocturia Other Visit Diagnoses Yeast infection involving the vagina and surrounding area Relevant Medications nystatin-triamcinolone (Mycolog II) ointment I discussed my evaluation findings with the patient and reviewed treatment options. She is mostly bothered by her OAB symptoms so we discussed treating this problem first. I discussed first- and second-line treatment options for OAB including behavioral modification, pelvic floor physical therapy, and medications. I offered trial of Gemtesa 75 mg daily - if the medication is not approved, will switch to Myrbetriq. Once her OAB symptoms, will address her ANANTH symptoms which at this moment are notas bothersome as her OAB symptoms. Will consider urodynamics at her follow-up visit. I also recommended vaginal estrogen for her vaginal atrophy and reviewed vulvar skin care guidelines for her vulvar changes. Will consider referral to Dr. Lindquist or Dr. Davenport if her vulvar skin has not improved with vulvar skin care and topical steroids. I also offered nystatin-triamcinolone ointment for yeast infection. I will see her back in 2 months or sooner PRN. All questions were answered to her satisfaction. Continue to monitor. Donny Arreguin MD Female Pelvic Medicine and Reconstructive Surgery documented in this encounter Plan of Treatment Not on file documented as of this encounter Visit Diagnoses Diagnosis Urgency incontinence- Primary Urge incontinence Stress incontinence Female stress incontinence Urinary urgency Urgency of urination Nocturia Vaginal atrophy Postmenopausal atrophic vaginitis Yeast infection involving the vagina and surrounding area Candidiasis of vulva and vagina documented in this encounter Additional Health Concerns Assessment Noted Time A fall risk assessment has been complete d for the patient 09/16/2022 1:12 PM EST documented as of this encounter Care Teams Golf Club Maker Relationship Specialty Start Date End Date Sammie Meadows PA [address] [place] [address] [address] [place] [address] PCP - General 07/13/22 documented as of this encounter
--- OUTSIDE RECORDS SUMMARY | 2024-08-15 07:01 | XMS_ITS | Encounter Summary ---
[facility] [address] [place] [address] Care Team Providers Care Superintendent Menagerie Name Role Phone Bret Boles MD Primary Care Provider Reason for Visit * Reason Comments Earache Encounter Details Date Type Department Care Team (Late st Contact Info) Description 05/04/2016 2:45 PM EDT Office Visit [address] [place] [address] Acute right otitis media, recurrence not specified, unspecified otitis media type (Primary Dx) Social History Tobacco Use Types Packs/Day Years Used Date Smoking Tobacco: Never Assessed Comments Unknown Sex and Gender Information Value Date Recorded Sex Assigned at Not on file Legal Sex Female 2:37 PM EDT Gender Identity Not on file Sexual Orientation Not on file documented as of this encounter Last Filed Vital Signs Vital Sign Reading Time Taken Comments Blood Pressure - - Pulse 91 05/04/2016 2:37 PM EDT Temperature 36.4 ??C (97.6 ??F) 05/04/2016 2:37 PM ED T Respiratory Rate 16 05/04/2016 2:37 PM EDT Oxygen Saturation 97% 05/04/2016 2:37 PM EDT Inhaled Oxygen Concentration - - Weight 89.8 kg (198 lb) 05/04/2016 2:37 PM EDT Height 165.1 cm (5' 5 ) 05/04/2016 2:37 PM EDT Body Mass Index 32.95 05/04/2016 2:37 PM EDT documented in this encounter Patient Instructions * Patient Instructions* Vidya Stein APRN - 05/04/2016 3:04 PM EDT Images from the original note were not included. Otitis Media, Adult Otitis media is redness, soreness, and inflammation of the middle ear. Otitis media may be caused by allergies or, most commonly, by infection. Often it occurs as a complication of the common cold. SIGNS AND SYMPTOMS Symptoms of otitis media may include: ?? Earache. ?? Fever. ?? Ringing in your ear. ?? Headache. ?? Leakage of fluid from the ear. DIAGNOSIS To diagnose otitis media, your health care provider will examine your ear with an otoscope. This isan instrument that allows your health care provider to see into your ear in order to examine your eardrum. Your health care provider also will ask you questions about your symptoms. TREATMENT Typically, otitis media resolves on its own within 3-5 days. Your health care provider may prescribe medicine to ease your symptoms of pain. If otitis media does not resolve within 5 days or is recurrent, your health care provider may prescribe antibiotic medicines if he or she suspects that a bacterial infection is the cause. HOME CARE INSTRUCTIONS ?? If you were prescribed an antibiotic medicine, finish it all even if you start to feel better. ?? Take medicines only as directed by your health care provider. ?? Keep all follow-up visits as directed by your health care provider. SEEK MEDICAL CARE IF: ?? You have otitis media only in one ear, or bleeding from your nose, or both. ?? You notice a lump on your neck. ?? You are not getting better in 3-5 days. ?? You feel worse instead of better. SEEK IMMEDIATE MEDICAL CARE IF: ?? You have pain that is not controlled with medicine. ?? You have swelling, redness, or pain around your ear or stiffness in your neck. ?? You notice that part of your face is paralyzed. ?? You notice that the bone behind your ear (mastoid) is tender when you touch it. MAKE SURE YOU: ?? Understand these instructions. ?? Will watch your condition. ?? Will get help right away if you are not doing well or get worse. This information is not intended to replace advice given to you by your health care provider. Make sure you discuss any questions you have with your health care provider. Document Released: 05/27/2005 Document Revised: 09/12/2015 Document Reviewed: 03/19/2014 [employer] Patient Education ??2016 [employer] documented in this encounter Progress Notes * Vidya Stein APRN - 05/04/2016 2:56 PM EDT Mindi Hugo is a 65 y.o. female. History of Present Illness 65 yo female presents to clinic with continued right sided ear pain. She was seen in our clinic 7 days ago and diagnosed with serous otitis and prescribed prednisone. She felt slight improvement, butnot full resolution. She continues to take Flonase and clairitin daily. The following portions of the patient's history were reviewed and updated as appropriate: allergies, current medications, past family history, past medical history, past social history, past surgicalhistory and problem list. Review of Systems Constitutional: Negative for appetite change and fatigue. HENT: Positive for congestion, rhinorrhea (clear) and sore throat. Eyes: Positive for itching. Respiratory: Positive for cough. Objective Physical Exam Constitutional: She is oriented to person, place, and time. She appears well- developed and well-nourished. HENT: Head: Normocephalic and atraumatic. Right Ear: Tympanic membrane is erythematous. Mouth/Throat: No posterior oropharyngeal edema. No tonsillar exudate. Eyes: Conjunctivae are normal. Pupils are equal, round, and reactive to light. Neck: Normal range of motion. Neck supple. Cardiovascular: Normal rate, regular rhythm and normal heart sounds. No murmur heard. Pulmonary/Chest: Effort normal and breath sounds normal. No respiratory distress. She has no wheezes. Abdominal: Soft. She exhibits no distension. There is no tenderness. Lymphadenopathy: She has no cervical adenopathy. Neurological: She is alert and oriented to person, place, and time. Skin: Skin is warm and dry. No rash noted. Psychiatric: She has a normal mood and affect. Her behavior is normal. Judgment and thought contentnormal. Vitals reviewed. Assessment/Plan Loan was seen today for earache. Diagnoses and all orders for this visit: Acute right otitis media, recurrence not specified, unspecified otitis media type Other orders - amoxicillin-clavulanate (AUGMENTIN) 875-125 MG per tablet; Take 1 tablet by mouth 2 (two) times aday for 7 days. - fluconazole (DIFLUCAN) 150 MG tablet; Take 1 tablet by mouth 1 (one) time for 1 dose. Education paperwork provided. Copy of visit not provided. documented in this encounter Plan of Treatment Not on file documented as of this encounter Visit Diagnoses Diagnosis Acute right otitis media, recurrence not specified, unspecified otitis media type- Primary documented in this encounter Care Teams Superintendent Menagerie Relationship Specialty Start Date End Date Bret Boles MD [address] [place] [id number] PCP - General Family Medicine 04/27/16 documented as of this encounter
--- OUTSIDE RECORDS SUMMARY | 2024-08-15 07:01 | XMS_ITS | Clinical Summary ---
Author Organization Healthcare Address [address] [id number] Care Team Providers Care Wholesale And Retail Merchant Name Role Phone Sammie Meadows Primary Care Provider Allergies Active Allergy Reactions Criticality Noted Date Comments Hydrocodone Hallucinations High 04/27/2016 Medications pravastatin (Pravachol) 20 MG tablet 2 Active gabapentin (Neurontin) 100 MG capsule Take 300 mg by mouth every night. 2 Active pramipexole (Mirapex) 0.75 MG tablet 2 Active triamterene-hydr ochlorothiazide (Maxzide-25) 37.5-25 MG tablet 2 Active ramipril (Altace) 10 MG capsule 2 Active metoprolol succinate XL (Toprol-XL) 25 MG 24 hr tablet 2 Active Farxiga 10 MG tablet 2 Active sertraline (Zoloft) 50 MG tablet 2 Active glimepiride (Amaryl) 4 MG tablet 2 Active Lantus SoloStar 100 UNIT/ML injection pen 2 Active Trulicity 4.5 MG/0.5ML inj. pen 2 Active nystatin-triamci nolone (Mycolog II) ointmentIndicati ons:Yeast infection involving the vagina and surrounding area Apply a thin layer over affected areas twice daily x 5 days, then daily x 5, then every other day x 14 days. 30 g 3 Active Active Problems Problem Noted Date Diagnosed Date Urgency incontinence 09/21/2022 Stress incontinence 09/21/2022 Urinary urgency 09/21/2022 Nocturia 09/21/2022 Vaginal atrophy 09/21/2022 Family History Medical History Relation Name Comments Heart Problem Father Hypertension Father Stroke Father Macular degeneration Mother Cancer Sister Relation Name Status Comments Father Mother Sister Social History Tobacco Use Types Packs/Day Years [...] on file Sexual Orientation Not on file Last Filed Vital Signs Vital Sign Reading [...] Mass Index 30.27 09/16/2022 1:02 PM EST Plan of Treatment Health Maintenance Due Date Last Done Comments [facility]-Bone Density Scan 1950 [facility]-Depression Screening 1952 [facility]-Hepatitis C Screening 1950 [facility]-Medicare Annual Wellness (AWV) 1950 [facility]-/Child/Adol SDOH Screenings 1950 [facility]- SDOH Screenings 1970 [facility]-Adult SDOH Screenings 1970 CT Colonography 1997 Colonoscopy 1997 FIT-DNA 1997 FIT 1997 FOBT 1997 Sigmoidoscopy 1997 [facility]-Colorectal Cancer Screening 1997 [facility]-Breast Cancer Screening 2002 [facility]-Zoster Vaccines (1 of 2) 2002 [facility]-Pneumococcal Vaccine: 65 + Years (1 of 1 - PCV) 2017 [id number] Vaccine ( - 2023-25 season) 2024 [facility]-Influenza Vaccine (#1) 2024 [facility]-RSV Vaccine: 60+ Years o r (1 - 1-dose 75+ series) 2027 [facility]-DTaP,Tdap,and Td Vaccine s (3 - Td or Tdap) 06/21/2029 06/21/2019, 09/04/2018 [facility]-Obesity Intervention Completed 09/16/2022 [facility]-HIB Vaccines Aged Out No longer e ligible based on patient's age to complete this topic [facility]-HPV Vaccines Aged Out No longer e ligible based on patient's age to complete this topic [facility]-Hepatitis A Vaccines Aged Out No longer eligible based on patient's age to complete this topic [facility]-IPV Vaccines Aged Out No longer e ligible based on patient's age to complete this topic [facility]-Rotavirus Vaccines Aged Out No lo nger eligible based on patient's age to complete this topic Insurance [place] [facility] MEDICARE Care Teams Wholesale And Retail Merchant Relationship Specialty Start Date End Date Sammie Meadows PA [address] [facility] [address] [place] [id number] PCP - General 07/13/22
--- OUTSIDE RECORDS SUMMARY | 2024-08-15 07:01 | XMS_ITS | Encounter Summary ---
Author [facility] Address [address] [place] [address] Care Team Providers Care Pmp Name Role Phone Bret Boles MD Primary Care Provider Reason for Visit * Reason Comments Earache Encounter Details Date Type Department Care Team (Late st Contact Info) Description 04/27/2016 2:45 PM EDT Office [address] [place] [address] Acute suppurative otitis media of right ear without spontaneous rupture of tympanic membrane, recurrence not specified (Primary Dx) Social History Tobacco Use Types Packs/Day Years Used Date Smoking Tobacco: Never Assessed Comments Unknown Sex and Gender Information Value Date Recorded Sex Assigned at Not on file Legal Sex Female 2:37 PM EDT Gender Identity Not on file Sexual Orientation Not on file documented as of this encounter Patient Instructions * Patient Instructions* Vidya Stein APRN - 04/27/2016 3:14 PM EDT You are being diagnosed with serous otitis media with effusion, which is fluid accumulation behind the ear drum that is causing your ear pain. A steroid was given to you to help open up your eustachian tube or ear canal by decreasing the inflammation and swelling. Use your nasal steroid spray as directed. You must use it on a daily basis for the medication to be effective. It is also recommended that you take an antihistamine such as Claritin, Zyrtec, or Romana (or the generic versions of the medication) to help dry up the drainage. If the treatment provided for you is not helping your ear pain, or your ear pain is gettin gworse, please follow up with your PCP. Visitations summary provided. documented in this encounter Progress Notes * Vidya Stein APRN - 04/27/2016 3:05 PM EDT Subjective Loan Hugo is a 65 y.o. female. Earache There is pain in the right ear. This is a new problem. The current episode started in the past 7 days. The problem occurs constantly. The problem has been gradually worsening. Maximum temperature: 99.8. The fever has been present for less than 1 day. The pain is severe. Associated symptoms include headaches. Pertinent negatives include no diarrhea, ear discharge, rash, rhinorrhea, sore throat or vomiting. Treatments tried: tylenol for fever. The treatment provided no relief. last one 4 years ago The following portions of the patient's history were reviewed and updated as appropriate: allergies, current medications, past family history, past medical history, past social history, past surgicalhistory and problem list. Review of Systems Constitutional: Positive for fever. Negative for appetite change. HENT: Positive for ear pain. Negative for ear discharge, rhinorrhea, sinus pressure and sore throat. Gastrointestinal: Positive for nausea (with the dizziness). Negative for diarrhea and vomiting. Skin: Negative for rash. Neurological: Positive for dizziness and headaches. Objective Physical Exam Constitutional: She is oriented to person, place, and time. She appears well- developed and well-nourished. HENT: Left Ear: Tympanic membrane is bulging (clear fluid, no errythemia ). Nose: Nose normal. Mouth/Throat: Oropharynx is clear and moist and mucous membranes are normal. No tonsillar exudate. Eyes: Pupils are equal, round, and reactive to light. Neurological: She is oriented to person, place, and time. Skin: Skin is warm. Loan was seen today for earache. Diagnoses and all orders for this visit: Acute suppurative otitis media of right ear without spontaneous rupture of tympanic membrane, recurrence not specified Other orders - Discontinue: predniSONE (DELTASONE) 5 MG tablet; Decreasing dose 6/5/4/3/2/1 PO Take entire course Education paperwork provided. Copy of visit not provided. documented in this encounter Plan of Treatment Not on file documented as of this encounter Visit Diagnoses Diagnosis Acute suppurative otitis media of right ear without spontaneous rupture of tympanic membrane, recurrence not specified- Primary documented in this encounter Care Teams Pmp Relationship Specialty Start Date End Date Bret Boles MD [facility] [address] [facility] [address] [place] [address] PCP - General Family Medicine 04/27/16 documented as of this encounter
--- OUTSIDE RECORDS SUMMARY | 2024-08-15 07:01 | XMS_ITS | Encounter Summary ---
Author Organization Healthcare Address [address] [place] [address] Care Team Providers Care Chef Under Name Role Phone Sammie Meadows Primary Care Provider [phone] Encounter Details Date Type Department Care Team (Latest Contact Info) Description 09/16/2022 Travel Social History Tobacco Use Types Packs/Day Years Used Date Smoking Tobacco: Former Cigarettes Q uit: 1999 Smokeless Tobacco: Never Alcohol Use Standard Drinks/Week [...] PM EST documented as of this encounter Plan of Treatment Not on file documented as of this encounter Visit Diagnoses Not on filedocumented in this encounter Additional Health Concerns Assessment Noted Time A fall risk assessment has been complete d for the patient 09/16/2022 1:12 PM EST documented as of this encounter Care Teams Chef Under Relationship Specialty Start Date End Date Sammie Meadows PA [address] [facility] [address] [place] [address] PCP - General 07/13/22 documented as of this encounter
--- OUTSIDE RECORDS SUMMARY | 2024-08-15 07:01 | XMS_ITS | Encounter Summary ---
Author Organization [facility] [employer] [facility] Address [address] [place] [address] Care Team Providers Care Miscellaneous Machine Operator Name Role Phone Bret Boles MD Primary Care Provider Reason for Visit * Reason Comments Earache right Encounter Details Date Type Department Care Team (Late st Contact Info) Description 04/04/2018 3:00 PM EDT Office Visit [place] [address] [place] [address] Impacted cerumen of right ear (Primary Dx); Acute otitis externa of right ear, unspecified type Social History Tobacco Use Types Packs/Day Years Used Date Smoking Tobacco: Former Cigarettes 0.5 35 1 968 - 2003 Comments No Sex and Gender Information Value Date Recorded Sex Assigned at Not on file Legal Sex Female 2:37 PM EDT Gender Identity Not on file Sexual Orientation Not on file documented as of this encounter Last Filed Vital Signs Vital Sign Reading Time Taken Comments Blood Pressure 110/98 04/04/2018 3:03 PM EDT Pulse 96 04/04/2018 3:03 PM EDT Temperature 36.3 ??C (97.3 ??F) 04/04/2018 3:03 PM ED T Respiratory Rate 12 04/04/2018 3:03 PM EDT Oxygen Saturation 95% 04/04/2018 3:03 PM EDT Inhaled Oxygen Concentration - - Weight 82.6 kg (182 lb 3.2 oz) 04/04/2018 3:03 P M EDT Height 165.1 cm (5' 5 ) 04/04/2018 3:03 PM EDT Body Mass Index 30.32 04/04/2018 3:03 PM EDT documented in this encounter Patient Instructions * Patient Instructions* Vidya Stein APRN - 04/04/2018 3:20 PM EDT Images from the original note were not included. Earwax Buildup, Adult The ears produce a substance called earwax that helps keep bacteria out of the ear and protects theskin in the ear canal. Occasionally, earwax can build up in the ear and cause discomfort or hearingloss. What increases the risk? This condition is more likely to develop in people who: ?? Are male. ?? Are elderly. ?? Naturally produce more earwax. ?? Clean their ears often with cotton swabs. ?? Use earplugs often. ?? Use in-ear headphones often. ?? Wear hearing aids. ?? Have narrow ear canals. ?? Have earwax that is overly thick or sticky. ?? Have eczema. ?? Are dehydrated. ?? Have excess hair in the ear canal. What are the signs or symptoms? Symptoms of this condition include: ?? Reduced or muffled hearing. ?? A feeling of fullness in the ear or feeling that the ear is plugged. ?? Fluid coming from the ear. ?? Ear pain. ?? Ear itch. ?? Ringing in the ear. ?? Coughing. ?? An obvious piece of earwax that can be seen inside the ear canal. How is this diagnosed? This condition may be diagnosed based on: ?? Your symptoms. ?? Your medical history. ?? An ear exam. During the exam, your health care provider will look into your ear with an instrument called an otoscope. You may have tests, including a hearing test. How is this treated? This condition may be treated by: ?? Using ear drops to soften the earwax. ?? Having the earwax removed by a health care provider. The health care provider may: ? Flush the ear with water. ? Use an instrument that has a loop on the end (curette). ? Use a suction device. ?? Surgery to remove the wax buildup. This may be done in severe cases. Follow these instructions at home: ?? Take irje-sbu-cyvofty and prescription medicines only as told by your health care provider. ?? Do not put any objects, including cotton swabs, into your ear. You can clean the opening of yourear canal with a washcloth or facial tissue. ?? Follow instructions from your health care provider about cleaning your ears. Do not over-clean your ears. ?? Drink enough fluid to keep your urine clear or pale yellow. This will help to thin the earwax. ?? Keep all follow-up visits as told by your health care provider. If earwax builds up in your earsoften or if you use hearing aids, consider seeing your health care provider for routine, preventiveear cleanings. Ask your health care provider how often you should schedule your cleanings. ?? If you have hearing aids, clean them according to instructions from the hat blocking machine operator and your health care provider. Contact a health care provider if: ?? You have ear pain. ?? You develop a fever. ?? You have blood, pus, or other fluid coming from your ear. ?? You have hearing loss. ?? You have ringing in your ears that does not go away. ?? Your symptoms do not improve with treatment. ?? You feel like the room is spinning (vertigo). Summary ?? Earwax can build up in the ear and cause discomfort or hearing loss. ?? The most common symptoms of this condition include reduced or muffled hearing and a feeling of fullness in the ear or feeling that the ear is plugged. ?? This condition may be diagnosed based on your symptoms, your medical history, and an ear exam. ?? This condition may be treated by using ear drops to soften the earwax or by having the earwax removed by a health care provider. ?? Do not put any objects, including cotton swabs, into your ear. You can clean the opening of yourear canal with a washcloth or facial tissue. This information is not intended to replace advice given to you by your health care provider. Make sure you discuss any questions you have with your health care provider. Document Released: 09/29/2005 Document Revised: 11/02/2017 Document Reviewed: 11/02/2017 Elsevier Interactive Patient Education ?? 2018 [employer] documented in this encounter Progress Notes * Vidya Stein APRN - 04/04/2018 3:00 PM EDT Mindi Hugo is a 67 y.o. female. BP 110/98 Pulse 96 Temp 97.3 ??F (36.3 ??C) Resp 12 Ht 165.1 cm (65 ) Wt 82.6 kg (182 lb 3.2 oz) SpO2 95% BMI 30.32 kg/m?? No past medical history on file. Allergies Allergen Reactions ??? Codone [Hydrocodone] Hallucinations Earache There is pain in the right ear. This is a new problem. The current episode started 1 to 4 weeks ago. The problem has been gradually worsening. There has been no fever. The pain is mild. Pertinent negatives include no abdominal pain, coughing, diarrhea, ear discharge, headaches, hearing loss, neck pain, rash, rhinorrhea, sore throat or vomiting. The following portions of the patient's history were reviewed and updated as appropriate: allergies, current medications, past family history, past medical history, past social history, past surgicalhistory and problem list. Review of Systems HENT: Positive for ear pain. Negative for ear discharge, hearing loss, rhinorrhea and sore throat. Respiratory: Negative for cough. Gastrointestinal: Negative for abdominal pain, diarrhea and vomiting. Musculoskeletal: Negative for neck pain. Skin: Negative for rash. Neurological: Negative for headaches. Objective Physical Exam Constitutional: She appears well-developed and well-nourished. HENT: Head: Normocephalic and atraumatic. Left Ear: Tympanic membrane and ear canal normal. Left canal is 100% occluded with cerumen. Post treatment canal is red dry and excoriated. Cardiovascular: Regular rhythm and normal heart sounds. Pulmonary/Chest: Effort normal. She has no wheezes. She has no rhonchi. She has no rales. Lymphadenopathy: She has no cervical adenopathy. Skin: Skin is warm and dry. Assessment/Plan Loan was seen today for earache. Diagnoses and all orders for this visit: Impacted cerumen of right ear Acute otitis externa of right ear, unspecified type Other orders - goeerpux-hubeeyolq-irgcdswuhrovtu (CORTISPORIN) 3.5-73599-3 otic solution; Administer 3 drops to the right ear 4 (Four) Times a Day for 7 days. Debrox added to right ear. Pt returned in 3 hours. Right ear irrigation completed today with warm water and hydrogen peroxide 50%/50% solution with OtoClear spray wash. Cerumen loosened with curette.Large chunks of yellow/brown cerumen extracted from righ ear. Post treatment TM: WNL. Pt tolerated well. documented in this encounter Plan of Treatment Not on file documented as of this encounter Visit Diagnoses Diagnosis Impacted cerumen of right ear- Primary Impacted cerumen Acute otitis externa of right ear, unspecified type documented in this encounter Care Teams Miscellaneous Machine Operator Relationship Specialty Start Date End Date Bret Boles MD [facility] [address] [facility] [address] [facility] [place] [address] PCP - General Family Medicine 04/27/16 documented as of this encounter
--- OUTSIDE RECORDS SUMMARY | 2024-08-15 07:01 | XMS_ITS | Clinical Summary ---
Author Organization [facility] Address [address] [place] [id number] Care Team Providers Care Welfare Project Manager Name Role Phone Bret Boles MD Primary Care Provider Allergies Active Allergy Reactions Criticality Noted Date Comments Hydrocodone Hallucinations High 04/27/2016 Medications metFORMIN (GLUCOPHAGE) 500 MG tablet Take 500 mg by mouth 2 (two) times a day with meals. Active levothyroxine (SYNTHROID, LEVOTHROID) 100 MCG tablet Take 100 mcg by mouth daily. Active triamterene-hyd rochlorothiazid e (MAXZIDE-25) 37.5-25 MG per tablet Take 1 tablet by mouth daily. Active ramipril (ALTACE) 10 MG capsule Take 10 mg by mouth daily. Active glimepiride (AMARYL) 1 MG tablet Take 1 mg by mouth every morning before breakfast. Active zolpidem (AMBIEN) 10 MG tablet Take 10 mg by mouth at night as needed for sleep. Active pravastatin (PRAVACHOL) 20 MG tablet 07/29/2019 Active JANUMET XR 50-1000 MG tablet 07/17/2019 Active sertraline (ZOLOFT) 50 MG tablet 08/10/2019 Active NEUPRO 3 MG/24HR patch 24 hour 05/30/2019 Active pramipexole (MIRAPEX) 0.25 MG tablet 08/13/2019 Active omeprazole (priLOSEC) 20 MG capsule 06/19/2019 Active levothyroxine (SYNTHROID, LEVOTHROID) 88 MCG tablet 05/23/2019 Active meclizine (ANTIVERT) 25 MG tablet 06/28/2019 Active hydrOXYzine (ATARAX) 25 MG tablet 08/15/2019 Active colestipol (COLESTID) 1 g tablet 06/19/2019 Active alendronate (FOSAMAX) 70 MG tablet 06/28/2019 Active fluticasone (FLONASE) 50 MCG/ACT nasal spray 06/19/2019 Active amoxicillin-cla vulanate (AUGMENTIN) 875-125 MG per tabletIndicatio ns:Acute recurrent frontal sinusitis Take 1 tablet by mouth 2 (Two) Times a Day. 20 tablet 08/24/2019 Active Active Problems No known active problems Immunizations Name Administration Dates Next Due Fluzone (or Fluarix & Flulaval for VFC) >6mos Hepatitis A 01/11/2019 Pneumococcal Conjugate 13-Valent (PCV13) 017 Tdap 06/21/2019,09/04/2018 Social History Tobacco Use Types Packs/Day Years Used Date Smoking Tobacco: Former Cigarettes 0.5 35 1 968 - 2002 Abuse Screen Answer Date Recorded Unsafe at Home or Work/School Not on file Feels Threatened by Someone? Not on file 07/2023 Does Anyone Keep You from Co ntacting Others or Doint Things Outside the Home? Not on file 06/15/2023 Physical Sign of Abuse Present Not on file 1 Housing Stability Answer Date Recorded Current Living Arrangements Not on file 06/05 Potentially Unsafe Housing Conditions Not on armand e 06/15/2023 Family and Community Support Answer Hao e Recorded Help with Day-to-Day Activities Not on file 06/15/2023 Lonely or Isolated Not on file 06/15/2023 Employment Answer Date Recorded Do you want help finding or keeping work or a elaina b? Not on file 06/15/2023 Disabilities Answer Date Recorded Concentrating, Remembering, or Making Decisions Difficulty Not on file 06/15/2023 Doing Errands Independently Difficulty Not on fi le 06/15/2023 Education Answer Date Recorded Help with school or training? Not on file Preferred Language Not on file 06/15/2023 Comments No Sex and Gender Information Value Date Recorded Sex Assigned at Not on file Legal Sex Female 2:37 PM EDT Gender Identity Not on file Sexual Orientation Not on file Last Filed Vital Signs Vital Sign Reading Time Taken Comments Blood Pressure 110/98 04/04/2018 3:03 PM EDT Pulse 81 08/24/2019 5:18 PM EST Temperature 37.1 ??C (98.7 ??F) 08/24/2019 5:18 PM ES T Respiratory Rate 15 08/24/2019 5:18 PM EST Oxygen Saturation 98% 08/24/2019 5:18 PM EST Inhaled Oxygen Concentration - - Weight 88.9 kg (196 lb) 08/24/2019 5:18 PM EST Height 165.1 cm (5' 5 ) 08/24/2019 5:18 PM EST Body Mass Index 32.62 08/24/2019 5:18 PM EST Plan of Treatment Health Maintenance Due Date Last Done Comments COLOGUARD 1950 COLON CANCER SCREENING 5 YEA R SIGMOIDOSCOPY 1952 COLONOSCOPY 1952 COL[address]AL CANCER SCREENING 1952 CT COLONOGRAPHY 1952 DXA SCAN 1952 FECAL OCCULT BLOOD TEST 1952 FIT Testing (1 year) 1952 MAMMOGRAM 1992 ZOSTER VACCINE (1 of 2) 2002 ANNUAL WELLNESS VISIT 03/10/2017 HEPATITIS C SCREENING 03/10/2017 Pneumococcal Vaccine 65+ (2 of 2 - PPSV23 or PCV20) 09/02/2018 09/02/2017 INFLUENZA VACCINE 03/05/2024 06/21/2019 COVID-19 Vaccine (1 - season) 2024 TDAP/TD VACCINES (3 - Td or Tdap) 06/21/2029 019, 09/04/2018 Insurance [facility] MEDIC[facility] REPLAC[facility] Care Teams Welfare Project Manager Relationship Specialty Start Date End Date Bret Boles MD [address] [place] [address] [address] [facility] [address] [place] [address] PCP - General Family Medicine 04/27/16
--- OUTSIDE RECORDS SUMMARY | 2024-08-15 07:01 | XMS_ITS | Encounter Summary ---
[facility] Address [address] [place] [address] Care Team Providers Care Laborer/Grade Check Name Role Phone Bret Boles MD Primary Care Provider Reason for Visit * Reason Comments Sinus Problem Encounter Details Date Type Department Care Team (Late st Contact Info) Description 08/24/2019 5:15 PM EST Office Visit [address] [place] [address] Acute recurrent frontal sinusitis (Primary Dx); Sore throat; Fever and chills Social History Tobacco Use Types Packs/Day Years Used Date Smoking Tobacco: Former Cigarettes 0.5 35 1 968 - 2002 Comments No Sex and Gender Information Value Date Recorded Sex Assigned at Not on file Legal Sex Female 2:37 PM EDT Gender Identity Not on file Sexual Orientation Not on file documented as of this encounter Last Filed Vital Signs Vital Sign Reading Time Taken Comments Blood Pressure - - Pulse 81 08/24/2019 5:18 PM EST Temperature 37.1 ??C (98.7 ??F) 08/24/2019 5:18 PM ES T Respiratory Rate 15 08/24/2019 5:18 PM EST Oxygen Saturation 98% 08/24/2019 5:18 PM EST Inhaled Oxygen Concentration - - Weight 88.9 kg (196 lb) 08/24/2019 5:18 PM EST Height 165.1 cm (5' 5 ) 08/24/2019 5:18 PM EST Body Mass Index 32.62 08/24/2019 5:18 PM EST documented in this encounter Progress Notes * Dhiraj Null V, MIDDLE SCHOOL TUTOR - 08/24/2019 5:15 PM EST Subjective Loan Hugo is a 68 y.o. female. Patient reports possible strep and flu exposure Sinus Problem This is a recurrent problem. Episode onset: 10 days. The problem has been gradually worsening sinceonset. There has been no fever. The pain is moderate. Associated symptoms include chills, congestion, headaches (severe), a hoarse voice, sinus pressure, a sore throat (severe) and swollen glands. Pertinent negatives include no coughing, ear pain, neck pain, shortness of breath or sneezing. Treatments tried: allergy medications. The treatment provided no relief. The following portions of the patient's history were reviewed and updated as appropriate: allergies, current medications, past medical history, past social history, past surgical history and problem list. Review of Systems Constitutional: Positive for chills, fatigue and fever (low grade). Negative for appetite change. HENT: Positive for congestion, hoarse voice, postnasal drip, rhinorrhea, sinus pressure, sinus painand sore throat (severe). Negative for ear pain, sneezing and trouble swallowing. Eyes: Negative. Respiratory: Negative for cough, chest tightness, shortness of breath and wheezing. Cardiovascular: Negative. Gastrointestinal: Negative for abdominal pain, diarrhea, nausea and vomiting. Musculoskeletal: Positive for arthralgias and myalgias. Negative for neck pain. Skin: Negative. Neurological: Positive for headaches (severe). Negative for dizziness. Hematological: Negative for adenopathy. Pulse 81 Temp 98.7 ??F (37.1 ??C) Resp 15 Ht 165.1 cm (65 ) Wt 88.9 kg (196 lb) SpO2 98% BMI 32.62 kg/m?? Objective Physical Exam Constitutional: She is oriented to person, place, and time. Vital signs are normal. She appears well-developed and well-nourished. HENT: Head: Normocephalic. Right Ear: External ear and ear canal normal. No drainage, swelling or tenderness. Tympanic membrane is bulging. Tympanic membrane is not erythematous. Left Ear: External ear and ear canal normal. No drainage, swelling or tenderness. Tympanic membraneis bulging. Tympanic membrane is not erythematous. Nose: Mucosal edema and rhinorrhea (thick mucoid) present. Right sinus exhibits frontal sinus tenderness (severe). Right sinus exhibits no maxillary sinus tenderness. Left sinus exhibits frontal sinus tenderness (severe). Left sinus exhibits no maxillary sinus tenderness. Mouth/Throat: Uvula is midline, oropharynx is clear and moist and mucous membranes are normal. Tonsils are 0 on the right. Tonsils are 0 on the left. No tonsillar exudate. Eyes: Pupils are equal, round, and reactive to light. Conjunctivae are normal. Cardiovascular: Normal rate, regular rhythm, S1 normal, S2 normal and normal heart sounds. Pulmonary/Chest: Effort normal and breath sounds normal. No respiratory distress. She has no wheezes. She has no rhonchi. She has no rales. Lymphadenopathy: Head (right side): Tonsillar adenopathy present. Head (left side): Tonsillar adenopathy present. She has no cervical adenopathy. Neurological: She is alert and oriented to person, place, and time. Skin: Skin is warm, dry and intact. No rash noted. Psychiatric: She has a normal mood and affect. Her speech is normal and behavior is normal. Thoughtcontent normal. Vitals reviewed. Results for orders placed or performed in visit on 08/24/19 POC Rapid Strep A Result Value Ref Range Rapid Strep A Screen Negative Negative, VALID, INVALID, Not Performed Internal Control Passed Passed Lot Number [id number] Expiration Date POC Influenza A / B Result Value Ref Range Rapid Influenza A Ag Negative Negative Rapid Influenza B Ag Negative Negative Internal Control Passed Passed Lot Number [id number] Expiration Date , Assessment/Plan Loan was seen today for sinus problem. Diagnoses and all orders for this visit: Acute recurrent frontal sinusitis - amoxicillin-clavulanate (AUGMENTIN) 875-125 MG per tablet; Take 1 tablet by mouth 2 (Two) Times aDay. - predniSONE (DELTASONE) 10 MG (21) tablet pack; Take by mouth Daily for 6 days. Use as directed onpackage Sore throat - POC Rapid Strep A - predniSONE (DELTASONE) 10 MG (21) tablet pack; Take by mouth Daily for 6 days. Use as directed onpackage Fever and chills - POC Influenza A / B documented in this encounter Plan of Treatment Not on file documented as of this encounter Procedures Procedure Name Priority Date/Time Associated Diagnosis Comments POCT INFLUENZA A/B Routine 08/24/2019 5: 31 PM EST Fever and chills POCT RAPID STREP A Routine 08/24/2019 5: 30 PM EST Sore throat documented in this encounter Results * POC Influenza A / B (08/24/2019 5:31 PM EST) Rapid Influenza A Ag Negative Negative [facility] Rapid Influenza B Ag Negative Negative [facility] Internal Control Passed Passed [facility] Lot Number [id number] [facility] Expiration Date [id number] [facility] Swab 08/24/2019 5:31 PM EST [facility] Hammon V, MIDDLE SCHOOL TUTOR POINT OF CARE TEST ORDERABL ES Final Result Performing Organization Address [facility] de Phone Number [facility]
[address] [place] [id number], * POC Rapid Strep A (08/24/2019 5:30 PM EST) [facility] Rapid Strep A Screen Negative Negative, VALID, INVALID, Not Performed [facility] Internal Control Passed Passed [facility] Lot Number [id number] [facility] Expiration Date [id number] [facility] Swab 08/24/2019 5:30 PM EST [facility] Hammon V, MIDDLE SCHOOL TUTOR POINT OF CARE TEST ORDERABL ES Final Result Performing Organization Address [facility] Co de Phone Number [facility]
[address] [place] [id number], [place] [phone] documented in this encounter Visit Diagnoses Diagnosis Acute recurrent frontal sinusitis- Primary Sore throat Acute pharyngitis Fever and chills Fever, unspecified documented in this encounter Care Teams Laborer/Grade Check Relationship Specialty Start Date End Date Bret Boles MD [address] [place] [address] PCP - General Family Medicine 04/27/16 documented as of this encounter
--- OUTSIDE RECORDS SUMMARY | 2024-08-15 07:01 | XMS_ITS | Encounter Summary ---
Author Organization Healthcare Address [address] [place] [id number] Care Team Providers Care Hotel Assistant General Manager Name Role Phone Sammie Meadows Primary Care Provider [phone] Reason for Visit * Reason Onset Date Comments Med Refill 01/12/2023 Encounter Details Date Type Department Care Team ([facility] st Contact Info) Description 01/12/2023 Refill Medical Office Building Obstetrics and Gynecology [address] [facility] [address] [place] [address] Donny Gonzalez MD [address] [place] [address] Vaginal atrophy Social History Tobacco Use Types Packs/Day Years [...] on file documented as of this encounter Miscellaneous Notes * Telephone Encounter - Fredis Mezamoises Knox - 01/17/2023 10:26 AM EDT Called pt, she stated that she was about to get in her car and go over to [email or web address] to have then to switch her Vaginal cream over to mail order. Pt stated she needed a refill on her levothyroxine too.I let pt know that she would have to reach out to her PCP/family Doctor for that medication becauseDr. Han doesn't prescribe/manage that medication. Pt understood and had no other questions. * Telephone Encounter - Jeanne Meza - 01/14/2023 11:41 AM EDT Called pt back, she wants her vaginal cream to go to a different pharmacy. I let pt know she could call at anytime to her current pharmacy and let them know she would like another pharmacy to fill her medication. I let pt know to call the office with any issues. documented in this encounter Plan of Treatment Not on file documented as of this encounter Visit Diagnoses Diagnosis Vaginal atrophy Postmenopausal atrophic vaginitis documented in this encounter Additional Health Concerns Assessment Noted Time A fall risk assessment has been complete d for the patient 09/16/2022 1:12 PM EST documented as of this encounter Care Teams Hotel Assistant General Manager Relationship Specialty Start Date End Date Sammie Meadows PA [address] [place] [address] [address] [place] [address] PCP - General 07/13/22 documented as of this encounter
--- OUTSIDE RECORDS SUMMARY | 2024-08-15 07:01 | XMS_ITS | Encounter Summary ---
[facility] Organization [facility] Address [address] [place] [id number] Care Team Providers Care Kiln Tender Name Role Phone Bret Boles MD Primary Care Provider Reason for Visit * Reason Comments Earache Encounter Details Date Type Department Care Team (Late st Contact Info) Description 03/10/2017 4:00 PM EDT Office Visit [address] [place] [address] Acute recurrent pansinusitis (Primary Dx); Acute diffuse otitis externa of right ear Social History Tobacco Use Types Packs/Day Years Used Date Smoking Tobacco: Former Cigarettes 0.5 35 1 968 - 2002 Comments Unknown Sex and Gender Information Value Date Recorded Sex Assigned at Not on file Legal Sex Female 2:37 PM EDT Gender Identity Not on file Sexual Orientation Not on file documented as of this encounter Last Filed Vital Signs Vital Sign Reading Time Taken Comments Blood Pressure - - Pulse 80 03/10/2017 4:04 PM EDT Temperature 37.1 ??C (98.7 ??F) 03/10/2017 4:04 PM ED T Respiratory Rate 16 03/10/2017 4:04 PM EDT Oxygen Saturation 97% 03/10/2017 4:04 PM EDT Inhaled Oxygen Concentration - - Weight 86.2 kg (190 lb) 03/10/2017 4:04 PM EDT Height 165.1 cm (5' 5 ) 03/10/2017 4:04 PM EDT Body Mass Index 31.62 03/10/2017 4:04 PM EDT documented in this encounter Patient Instructions * Patient Instructions* Dhiraj Null APRN - 03/10/2017 4:11 PM EDT Images from the original note were not included. Sinusitis, Adult Sinusitis is soreness and inflammation of your sinuses. Sinuses are hollow spaces in the bones around your face. Your sinuses are located: ?? Around your eyes. ?? In the middle of your forehead. ?? Behind your nose. ?? In your cheekbones. Your sinuses and nasal passages are lined with a stringy fluid (mucus). Mucus normally drains out of your sinuses. When your nasal tissues become inflamed or swollen, the mucus can become trapped or blocked so air cannot flow through your sinuses. This allows bacteria, viruses, and funguses to grow, which leads to infection. Sinusitis can develop quickly and last for 7-10 days (acute) or for more than 12 weeks (chronic). Sinusitis often develops after a cold. CAUSES This condition is caused by anything that creates swelling in the sinuses or stops mucus from draining, including: ?? Allergies. ?? Asthma. ?? Bacterial or viral infection. ?? Abnormally shaped bones between the nasal passages. ?? Nasal growths that contain mucus (nasal polyps). ?? Narrow sinus openings. ?? Pollutants, such as chemicals or irritants in the air. ?? A foreign object stuck in the nose. ?? A fungal infection. This is rare. RISK FACTORS The following factors may make you more likely to develop this condition: ?? Having allergies or asthma. ?? Having had a recent cold or respiratory tract infection. ?? Having structural deformities or blockages in your nose or sinuses. ?? Having a weak immune system. ?? Doing a lot of swimming or diving. ?? Overusing nasal sprays. ?? Smoking. SYMPTOMS The main symptoms of this condition are pain and a feeling of pressure around the affected sinuses.Other symptoms include: ?? Upper toothache. ?? Earache. ?? Headache. ?? Bad breath. ?? Decreased sense of smell and taste. ?? A cough that may get worse at night. ?? Fatigue. ?? Fever. ?? Thick drainage from your nose. The drainage is often green and it may contain pus (purulent). ?? Stuffy nose or congestion. ?? Postnasal drip. This is when extra mucus collects in the throat or back of the nose. ?? Swelling and warmth over the affected sinuses. ?? Sore throat. ?? Sensitivity to light. DIAGNOSIS This condition is diagnosed based on symptoms, a medical history, and a physical exam. To find out if your condition is acute or chronic, your health care provider may: ?? Look in your nose for signs of nasal polyps. ?? Tap over the affected sinus to check for signs of infection. ?? View the inside of your sinuses using an imaging device that has a light attached (endoscope). If your health care provider suspects that you have chronic sinusitis, you may also: ?? Be tested for allergies. ?? Have a sample of mucus taken from your nose (nasal culture) and checked for bacteria. ?? Have a mucus sample examined to see if your sinusitis is related to an allergy. If your sinusitis does not respond to treatment and it lasts longer than 8 weeks, you may have an MRI or CT scan to check your sinuses. These scans also help to determine how severe your infection is. In rare cases, a bone biopsy may be done to rule out more serious types of fungal sinus disease. TREATMENT Treatment for sinusitis depends on the cause and whether your condition is chronic or acute. If a virus is causing your sinusitis, your symptoms will go away on their own within 10 days. You may be given medicines to relieve your symptoms, including: ?? Topical nasal decongestants. They shrink swollen nasal passages and let mucus drain from your sinuses. ?? Antihistamines. These drugs block inflammation that is triggered by allergies. This can help to ease swelling in your nose and sinuses. ?? Topical nasal corticosteroids. These are nasal sprays that ease inflammation and swelling in your nose and sinuses. ?? Nasal saline washes. These rinses can help to get rid of thick mucus in your nose. If your condition is caused by bacteria, you will be given an antibiotic medicine. If your condition is caused by a fungus, you will be given an antifungal medicine. Surgery may be needed to correct underlying conditions, such as narrow nasal passages. Surgery may also be needed to remove polyps. HOME CARE INSTRUCTIONS Medicines ?? Take, use, or apply rlyx-yms-mmgfoak and prescription medicines only as told by your health careprovider. These may include nasal sprays. ?? If you were prescribed an antibiotic medicine, take it as told by your health care provider. Do not stop taking the antibiotic even if you start to feel better. Hydrate and Humidify ?? Drink enough water to keep your urine clear or pale yellow. Staying hydrated will help to thin your mucus. ?? Use a cool mist humidifier to keep the humidity level in your home above 50%. ?? Inhale steam for 10-15 minutes, 3-4 times a day or as told by your health care provider. You heidi this in the bathroom while a hot shower is running. ?? Limit your exposure to cool or dry air. Rest ?? Rest as much as possible. ?? Sleep with your head raised (elevated). ?? Make sure to get enough sleep each night. General Instructions ?? Apply a warm, moist washcloth to your face 3-4 times a day or as told by your health care provider. This will help with discomfort. ?? Wash your hands often with soap and water to reduce your exposure to viruses and other germs. Ifsoap and water are not available, use hand practical nursing instructor. ?? Do not smoke. Avoid being around people who are smoking (secondhand smoke). ?? Keep all follow-up visits as told by your health care provider. This is important. SEEK MEDICAL CARE IF: ?? You have a fever. ?? Your symptoms get worse. ?? Your symptoms do not improve within 10 days. SEEK IMMEDIATE MEDICAL CARE IF: ?? You have a severe headache. ?? You have persistent vomiting. ?? You have pain or swelling around your face or eyes. ?? You have vision problems. ?? You develop confusion. ?? Your neck is stiff. ?? You have trouble breathing. This information is not intended to replace advice given to you by your health care provider. Make sure you discuss any questions you have with your health care provider. Document Released: 08/22/2006 Document Revised: 12/13/2016 Document Reviewed: 06/16/2016 [employer] Interactive Patient Education ??2017 [employer] documented in this encounter Progress Notes * Dhiraj Null APRN - 03/10/2017 4:00 PM EDT Mindi Hugo is a 66 y.o. female. Earache There is pain in the right ear. This is a recurrent problem. The current episode started in the past 7 days. The problem occurs constantly. The problem has been rapidly worsening. There has been no fever. The pain is moderate. Associated symptoms include ear discharge, headaches, hearing loss and rhinorrhea. Pertinent negatives include no abdominal pain, coughing, diarrhea, neck pain, sore throator vomiting. She has tried ear drops for the symptoms. The treatment provided no relief. Her past medical history is significant for a chronic ear infection. There is no history of hearing loss or a tympanostomy tube. Sinus Problem This is a recurrent problem. The current episode started in the past 7 days. The problem has been gradually worsening since onset. There has been no fever. The pain is moderate. Associated symptoms include congestion, ear pain (right), headaches, sinus pressure and swollen glands. Pertinent negatives include no chills, coughing, hoarse voice, neck pain, shortness of breath, sneezing or sore throat. Treatments tried: allergy medication. The treatment provided no relief. The following portions of the patient's history were reviewed and updated as appropriate: allergies, current medications, past medical history, past social history, past surgical history and problem list. Review of Systems Constitutional: Negative for appetite change, chills and fever. HENT: Positive for congestion, ear discharge, ear pain (right), hearing loss, postnasal drip, rhinorrhea and sinus pressure. Negative for hoarse voice, sneezing, sore throat and trouble swallowing. Eyes: Negative. Respiratory: Negative for cough, shortness of breath and wheezing. Cardiovascular: Negative. Gastrointestinal: Negative for abdominal pain, diarrhea, nausea and vomiting. Musculoskeletal: Negative. Negative for neck pain. Skin: Negative. Neurological: Positive for headaches. Negative for dizziness. Hematological: Positive for adenopathy. Pulse 80 Temp 98.7 ??F (37.1 ??C) Resp 16 Ht 65 (165.1 cm) Wt 190 lb (86.2 kg) SpO2 97% BMI 31.62 kg/m2 Objective Physical Exam Constitutional: She is oriented to person, place, and time. Vital signs are normal. She appears well-developed and well-nourished. HENT: Head: Normocephalic. Right Ear: External ear normal. There is drainage, swelling and tenderness. Tympanic membrane is bulging. Tympanic membrane is not erythematous. Left Ear: External ear and ear canal normal. No drainage, swelling or tenderness. Tympanic membraneis bulging. Tympanic membrane is not erythematous. Nose: Mucosal edema and rhinorrhea present. Right sinus exhibits maxillary sinus tenderness and frontal sinus tenderness. Left sinus exhibits maxillary sinus tenderness and frontal sinus tenderness. Mouth/Throat: Uvula is midline, oropharynx is clear and moist and mucous membranes are normal. Tonsils are 0 on the right. Tonsils are 0 on the left. No tonsillar exudate. Eyes: Conjunctivae are normal. Pupils are equal, round, and reactive to light. Cardiovascular: Normal rate, regular rhythm, S1 normal, S2 normal and normal heart sounds. Pulmonary/Chest: Effort normal and breath sounds normal. No respiratory distress. She has no wheezes. Lymphadenopathy: Head (right side): No tonsillar adenopathy present. Head (left side): No tonsillar adenopathy present. She has no cervical adenopathy. Neurological: She is alert and oriented to person, place, and time. Skin: Skin is warm, dry and intact. No rash noted. Psychiatric: She has a normal mood and affect. Her speech is normal and behavior is normal. Thoughtcontent normal. Vitals reviewed. Assessment/Plan Loan was seen today for earache. Diagnoses and all orders for this visit: Acute recurrent pansinusitis - amoxicillin-clavulanate (AUGMENTIN) 875-125 MG per tablet; Take 1 tablet by mouth 2 (Two) Times aDay for 10 days. - PredniSONE (DELTASONE) 10 MG (21) tablet pack; Take by mouth Daily for 6 days. Use as directed onpackage Acute diffuse otitis externa of right ear - wprhcgkx-dkzqcdpik-yqomelgcqmqtds (CORTISPORIN) 3.5-48860-2 otic solution; Administer 3 drops to the right ear 3 (Three) Times a Day for 7 days. documented in this encounter Plan of Treatment Not on file documented as of this encounter Visit Diagnoses Diagnosis Acute recurrent pansinusitis- Primary Acute diffuse otitis externa of right ear documented in this encounter Care Teams Kiln Tender Relationship Specialty Start Date End Date Bret Boles MD [address] [facility] [address] [facility] [place] [address] [place] [address] PCP - General Family Medicine 04/27/16 documented as of this encounter
[2024-08-15 08:03] VITALS: BP 172/86; PULSE 96; RESP 17; TEMP 36.6; O2SAT 95
[2024-08-15] MEDS: LACTATED RINGERS 1000ML 1,000 ML 25 ML IV (08:09)
[2024-08-15 08:13] LABS: POC Glucose,Bedside 195 (70-110)
--- NOTE | 2024-08-15 08:22 | EXP.ANES.CKL ---
[facility] Disclaimer: The information contained in this section may have been updated after the patient was seen, as this information can be updated by other users. Medical History History of skin cancer History of colon cancer History of diabetes mellitus Surgical History History of bowel resection History of colonoscopy with polypectomy Family History Other Family history of [place] (myocardial infarction) Family history of breast cancer Family history of stroke Social History Smoking Status: Former smoker alcohol intake: never substance use type: denies use current occupational status: employed Travel in the last 8 weeks: None household members: other housing: other caffeine: Yes [facility] Anesthesia Checklist Patient Identification Patient Identification: Verbal (Name & ) Structural Data Admitted From: Home Planned Operative Procedure/s: colonoscopy Consent for Planned Operative Procedure(s) Verified: Yes NPO Status Verified Time NPO: 00:00 Additional verifications Anesthesia Reactions: No Airway Assessment Mallampati Score:: Class II C-Spine Mobility Assessed: Yes TMJ Mobility Assessed: Yes Dentition: Dentures-good fit Neurological Assessment Level of Consciousness: Awake, Alert and Appropriate Anesthesia Plan Anesthesia Risk discussed: Yes Anesthesia Plan: Verified ASA Class: II Anesthesia Type: MAC
--- NOTE | 2024-08-15 08:40 | EXP.HP ---
History of Present Illness *Admission Date: 08/15/24 *Reason for visit:: Screening/surveillance *History of present illness: Mrs. Hugo is a 73-year-old female who is here for surveillance colonoscopy. She does have a prior history of a malignant colon polyp in 2001 and had low anterior resection. Her last colonoscopy was 5 years ago (October 2018) at which time she had a single diminutive polyp (tubular adenoma) removed. The examination is deemed medically necessary for surveillance colonoscopy. The patient has been seen, interviewed and examined prior to the procedure by both myself and the anesthesia provider. [facility] Disclaimer: The information contained in this section may have been updated after the patient was seen, as this information can be updated by other users. Medical History (Updated 08/15/24 @ 08:41 by Linus Thorpe II, MD) History of skin cancer History of colon cancer History of diabetes mellitus Surgical History History of bowel resection History of colonoscopy with polypectomy Family History Other Family history of [place] (myocardial infarction) Family history of breast cancer Family history of stroke Social History Smoking Status: Former smoker alcohol intake: never substance use type: denies use current occupational status: employed Travel in the last 8 weeks: None household members: other housing: other caffeine: Yes Other Medical History Have you received the Pneumonia Vaccine: Yes Review of Systems Review of Systems Review of systems (narrative): Negative *Cardiovascular Comments: Negative *Gastrointestinal Comments: Negative *Genitourinary Comments: Negative *Musculoskeletal Comments: Negative *Neurologic Comments: Negative Meds Home Medications and Allergies Home Medications ?Medication ?Instructions ?Recorded ?Confirmed ?Type aspirin 81 mg tablet,delayed 81 mg PO DAILY prevention 10/09/18 08/15/24 History release (Aspir-) hydroxyzine pamoate 25 mg capsule 50 mg PO QHS bp 30 days #60 caps 10/09/18 08/15/24 History colestipol 1 gram tablet 1 g PO BID 02/04/20 08/15/24 History metoprolol succinate 25 mg 25 mg PO DAILY 03/24/20 08/15/24 History tablet,extended release 24 hr omeprazole 20 mg capsule,delayed 20 mg PO DAILY 03/24/20 08/15/24 History release triamterene 37.5 1 tab PO DAILY 03/24/20 08/15/24 History mg-hydrochlorothiazide 25 mg tablet glimepiride 4 mg tablet 8 mg PO DAILY 06/26/20 08/15/24 History levothyroxine 100 mcg tablet 100 mcg PO DAILY 06/26/20 08/15/24 History sertraline 50 mg tablet 100 mg PO DAILY mood 06/26/20 08/15/24 History sitagliptin phosphate 100 mg tablet 100 mg PO DAILY 06/26/20 03/16/21 History pravastatin 20 mg tablet 20 mg PO DAILY Cholesterol 09/02/20 06/19/24 History pramipexole 0.25 mg tablet 0.75 mg (3 x 0.25 mg) PO QHS RLS 09/30/20 08/15/24 Rx 90 days #270 tabs gabapentin 300 mg capsule 300 mg PO HS 03/16/21 08/15/24 History insulin glargine 100 unit/mL (3 100 unit SQ BID 06/19/24 08/15/24 History mL) subcutaneous pen (Lantus Solostar U-100 Insulin) insulin lispro 100 unit/mL 0 sliding scale dose SQ TID 06/19/24 08/15/24 History subcutaneous pen (Humalog KwikPen (U-100) Insulin) sod picosulf 10 mg-magnes 3.5 175 ml PO DAILY Bowel Prep 2 doses 08/03/24 Rx gram-citric 12 gram/175 mL oral #350 mL solution (Clenpiq) New Prescriptions to Start Prescriptions: Allergies Allergy/AdvReac Type Severity Reaction Status Date / Time codeine (CODEINE) Allergy Unknown Hallucinati Verified 08/15/24 07:59 ng Exam Data for Last 24 hours Vital signs and Labs for Last 24 Hours: Temp Pulse Resp BP Pulse Ox O2 Del Method 97.9 F 96 H 17 172/86 H 95 Room Air 08/15/24 08:03 08/15/24 08:03 08/15/24 08:03 08/15/24 08:03 08/15/24 08:03 08/15/24 08:03 Laboratory Results - last 24 hr 08/15/24 08:04: POC Glucose 195 H *Routine HEENT Exam Head: Present normocephalic Eye: Present EOMI and PERRL ENT: Present mucous membranes moist *Routine Neck Exam Neck: Present supple *Routine Respiratory Exam Respiratory: Present CTA bilaterally *Routine Cardiovascular Exam Cardiovascular: Present RRR *Routine Abdominal Exam Abdominal: Present soft and normoactive bowel sounds; Absent tenderness *Routine Rectal Exam Rectal:: deferred *Routine Genitalia Exam Genitalia:: deferred *Routine Extremities Exam Extremities: Absent cyanosis, clubbing or edema *Routine Skin Exam Skin: Present warm; Absent rash *Routine Neurological Exam Neurological: Present alert and oriented X3 Assessment and Plan *Assessment and plan (1) Personal history of adenomatous and serrated colon polyps: Status: Acute Category: Medical Code(s): Z86.0101 - Personal history of adenomatous and serrated colon polyps (2) Personal history of colon cancer, stage I: Status: Acute Category: Medical Code(s): Z85.038 - Personal history of other malignant neoplasm of large intestine Plan A/P: 1. Personal history of malignant polyp and personal history of adenomatous polyps is the preprocedural diagnosis. The patient will be anesthetized/sedated using MAC sedation. The patient has been seen and examined. Cardiac and lung assessment prior to the examination is stable. Proceed with planned surveillance colonoscopy
--- NOTE | 2024-08-15 08:41 | HMH.PROCNOTE ---
[facility] Procedure Note Date: 08/15/24 Time: 09:01 Procedure Note:: Colonoscopy Procedure Report: Colonoscopy with cold snare polypectomy Endoscopist: Linus Thorpe II, MD Referring physician: Sammie Meadows PA-C Date of Procedure: August 15, 2024 Equipment: Olympus 190 variable stiffness pediatric colonoscope Sedation: MAC sedation Indication: Mrs. Hugo is a 73-year-old female who is here for follow-up surveillance colonoscopy. The patient did have a malignant colon polyp identified in 2001 and underwent low anterior resection/sigmoid resection at that time. Her last colonoscopy with ar was in October 2018 and she had a single benign polyp (small tubular adenoma) removed. The patient reports no abdominal pain, weight loss, change in her bowel habits or rectal bleeding. She reports no family history of colon cancer. Procedure: Prior to the procedure, a history and physical exam was performed, and patient's medications and allergies were reviewed. The risks, benefits and alternatives of the sedation and procedure were discussed with the patient. All questions were answered and informed consent was obtained. The patient was brought to the procedure room. Patient identification and proposed procedure were verified by the physician and the nurse. The patient was placed in a left lateral decubitus position and the scope was passed under direct vision. Throughout the procedure, the patient's blood pressure, pulse, and oxygen saturations were monitored continuously. The colonoscopy was accomplished without difficulty. The patient tolerated the procedure well. Findings: On digital rectal examination there was normal rectal tone. There were no external hemorrhoids. The colonoscope was introduced through the anal canal to the rectum and advanced to the cecum. The ileocecal valve and appendiceal orifice were identified. The scope was advanced a short distance into the ileum which appeared grossly normal. The scope was then withdrawn into the colon. The cecum, ascending and transverse colon and mucosa were grossly normal. There were scattered diverticula in the remaining descending colon. There was a diminutive 4 mm polyp in the descending colon removed via cold snare polypectomy. The anastomotic site appeared to be well-healed with normal colocolonic anastomosis. The rectum itself was normal. Upon retroflexion within the rectum there were grade 1 internal hemorrhoids. The preparation was excellent throughout with Laie Preparation Score of 9. The cecal time was 10 minutes. Impression: 1. Diminutive descending colon polyp (4 mm) 2. Prior LAR with normal anastomosis and some mild left-sided diverticulosis 3. Grade 1 internal hemorrhoids Plan: I will follow-up the polyp histology and recommend repeat surveillance colonoscopy again in 5 years. I would encourage bulking psyllium fiber supplementation on a maintenance basis.
[2024-08-15 08:47] VITALS: O2SAT 98
[2024-08-15 09:05] VITALS: BP 95/60; PULSE 82; RESP 14; TEMP 37; O2SAT 92
[2024-08-15 09:15] VITALS: BP 124/66; PULSE 79; RESP 16; O2SAT 93
[2024-08-15 09:25] VITALS: BP 114/68; PULSE 78; RESP 16; O2SAT 96
[2024-08-15 09:35] VITALS: BP 117/71; PULSE 79; RESP 16; O2SAT 97
== END 2024-08-15 09:35 | disposition home or self-care (01) ==
PROVIDERS: PCP Physician Assistant; Visit Provider Internal Medicine Gastroenterology
PROC: 0DJD8ZZ Inspection of Lower Intestinal Tract, Via Natural or Artificial Opening Endoscopic (ICD-10-PCS; CPT 45378; principal; 2024-08-15 08:30)
DX: Z12.11 Encounter for screening for malignant neoplasm of colon (principal); D12.4 Benign neoplasm of descending colon; K57.30 Diverticulosis of large intestine without perforation or abscess without bleeding; K64.0 First degree hemorrhoids
CPT/HCPCS: 45385; 82962; 88305; J7120

== ENCOUNTER 2025-02-15 15:00 | Outpatient (CLI) | payer MEDICARE, MEDICAID, SELFPAY ==
--- OUTSIDE RECORDS SUMMARY | 2024-11-23 05:45 | XMS_ITS ---
Author Organization [facility] Address [address] [facility] [address] [id number] Care Team Providers Care Field Recorder Name Role Phone Jose Enrique Boles Primary Care Provider [phone] Sammie Meadows Unavailable [phone] Allergies Allergen (clinical drug ingredient) Drug/Non Drug Allergy documented on EMR Reaction Allergy Type Onset Date Status doxycycline Doxycycline vomiting Drug Allergy Act marko codeine Codeine Unknown Drug Allergy Active Results Component Value Reference Range Notes P-Basic Metabolic Panel (BMP ) Reviewed date:11/28/2024 11:10:09 AM Interpretation: Performing Lab: Notes/Report: Test performed by [facility], nodila [address] [place] [address] , [address], [place] [address] Danilo Krer MD, Word Processing Supervisor CLIA: [id number] Sodium 138 135-145 mmol/L Potassium 4.6 3.5-5.3 mmol/L Chloride 104 97-108 mmol/L CO2 23 22-32 mmol/L Glucose 199 65-99 mg/dL BUN 30 8-23 mg/dL Creatinine 1.13 0.50-1.00 mg/dL Calcium 8.9 8.6-10.4 mg/dL eGFR by Creatinine 52 >59 mL/min/1.73m2 REASON FOR VISIT 1 Month Check Up w/ Repeat Labs Medications Medication SIG (Take, Route, Frequency, Duration) Notes Start Date End Date Status hydrOXYzine HCl 25 MG 1 or 2 tab(s) oral ly once a day at bedtime as needed for 90 days Active Ramipril 10 MG TAKE 1 CAPSULE BY MOUTH ONCE DAILY for 90 Active Alendronate Sodium 70 MG 1 tab(s) orally once a week for 90 days Active Azelastine-Fluticason e 137-50 MCG/ACT 1 spray in each nostril Nasally Twice a day 11/23/2024 Active Sertraline HCl 100 MG TAKE 1 TABLET BY MOUTH ONCE DAILY for 90 Active Rolling Walker with seat - 1 as needed 10/26/2024 Active Pravastatin Sodium 20 MG TAKE 2 TABLETS BY MOUTH ONCE DAILY for 90 Active Omeprazole 20 MG 1 capsule 1/2 to 1 hour before morning meal Orally Once a day for 90 days Active Pramipexole Dihydrochloride 0.75 MG TAKE 1 TABLET BY MOUTH AT BEDTIME for 90 Active Metoprolol Succinate ER 25 MG TAKE 1 TABLET BY MOUTH ONCE DAILY for 90 Active Gabapentin 300 MG 1 cap(s) orally 3 times a day for 5 day(s) 08/18/2023 Active Fluconazole 150 MG 1 tablet Orally once daily 07/27/2024 Active Farxiga 10 MG TAKE 1 TABLET EVERY DAY for 90 days Active Levothyroxine Sodium 137 MCG 1 tablet in the morning on an empty stomach Orally Once a day for 90 days Active Glimepiride 4 MG 2 tab(s) orally once a day for 90 days Active HumaLOG KwikPen 100 UNIT/ML as directed Subcutaneous Active Mounjaro 5 MG/0.5ML as directed Subcutaneous Active Multivitamin 1 TAB ONCE A DAY *Please review and pick correct strength-formulat ion from [email or web address] options. If intended option is not shown, discontinue and re-order from Quick Search* Active BD LEONILA 2ND GEN PEN NEEDLE 4MM X 32G - ONCE DAILY E11.9 *Please review for potential replacement for e-prescription and drug interaction check* 03/16/2022 Active Lantus SoloStar 100 UNIT/ML 58 units subcutaneously Two times a day Active Vital Signs Blood pressure systolic 130 mm Hg 11/24/19 25 Blood pressure diastolic 68 mm Hg 025 Heart Rate 91 /min 11/23/2024 Height 65 in 11/23/2024 Weight 219.2 lbs 11/23/2024 BMI 36.47 kg/m2 11/23/2024 Encounters Encounter Location Date Provider Diagnosis [facility] [address] [facility] [address] [place] [phone] 11/23/2024 Sammie Crowdy Seasonal allergic rhinitis, unspecified trigger J30.2 and Renal insufficiency N28.9 Assessments Encounter Date Diagnosis (ICD Code) Assessment Notes Treatment Notes Treatment Clinical Notes Section Notes 11/23/2024 Seasonal allergic rhinitis, unspecified trigger (ICD-10 - J30.2) Her allergies have been getting worse. She has been using OTC loratadine and flonase. Will try dymista. May need to add singulair. 11/23/2024 Renal insufficiency (ICD-10 - N28.9) Plan Of Treatment Medication Medication Name Sig Start Date Stop Date Notes Azelastine-Fluticasone 137-5 0 MCG/ACT 1 spray in each nostril Nasally Twice a day 11/23/2024 Treatment Notes Assessment Notes Seasonal allergic rhinitis, unspecified trigger Her allergies have been getting worse. S he has been using OTC loratadine and flonase. Will try dymista. May need to add singulair. Next Appt Details Follow Up: via phone to repo rt test results, Reason: Provider Name:Trell Gutierres ry, 03/01/2025 02:15:00 PM, [address] [facility] [address] [facility], [address] , [place], [place], [id number], Progress Notes * LOUIS MURPHYDOB:1950 ( 74 yo F)Acc No.[id number]:11/23/2024 Progress Notes Patient: LOUIS CARABALLO Provider: PRASHANTH Pate :1950 A ge:74 Y S ex:Female Date:11/23/2024 Address:[address] [place] [id number] Pcp:Jose Enrique Boles Subjective: * Chief Complaints: * 1 . 1 Month Check Up w/ Repeat Labs. * HPI: H PI: 74 year old female presents with c/o Patient is here today for?Pt is here today for a 1 month check up with repeat labs. Pt sts she is doing well and has no concerns at this time. * ROS: D ERMATOLOGY: no R fede. n o H marta. G ASTROENTEROLOGY: no N ausea. n o V omiting. n o D iarrhea.? U ROLOGY: no D ifficulty urinating. n o B lood in urine. * Medical History: H ypertension, Allergies, Hypothyroidism, Type 2 diabetes. * Surgical History: t ubal ligation 1981, colectomy 2002, sinus 2003, choelcystectomy , Dr. Hyatt, eyelid sugery 03/02/16. * Hospitalization/Major Diagno stic Procedure: [facility]. * Family History: F ather: , coronary artery disease,, diagnosed with Hypertension, Heart Disease. M other: , diagnosed with Hypertension, Heart Disease. 2 sister(s) - healthy. 1 son(s) , 2 daughter(s) . . lost girl at , 5yrs ago 2n daughter CHF. * Social History: C URRENT TOBACCO USE S moking Status: Patient does NOT smoke. E xercise: yes. Home smoke detector use: yes. Marital Status: Single. Alcohol: no. Past smoking status: no, Smoking status: Does not smoke. * Medications: T aking Mounjaro 5 MG/0.5ML Solution Auto-injector as directed Subcutaneous , Taking HumaLOG KwikPen 100 UNIT/ML Solution Pen-injector as directed Subcutaneous , Taking BD LEONILA 2ND GEN PEN NEEDLE 4MM X 32G - ONCE DAILY , Notes to Pharmacist: E11.9 *Please review for potential replacement for e-prescription and drug interaction check*, Taking Multivitamin 1 TAB ONCE A DAY , Notes to Pharmacist: *Please review and pick correct strength-formulation from [employer] options. If intended option is not shown, discontinue and re-order from Quick Search*, Taking Lantus SoloStar 100 UNIT/ML Solution Pen-injector 58 units subcutaneously Two times a day , Taking Glimepiride 4 MG Tablet 2 tab(s) orally once a day , Taking Gabapentin 300 MG Capsule 1 cap(s) orally 3 times a day , Taking Farxiga 10 MG Tablet TAKE 1 TABLET EVERY DAY , Taking Fluconazole 150 MG Tablet 1 tablet Orally once daily , Taking Levothyroxine Sodium 137 MCG Tablet 1 tablet in the morning on an empty stomach Orally Once a day , Taking Rolling Walker with seat - - 1 as needed , Taking Omeprazole 20 MG Capsule Delayed Release 1 capsule 1/2 to 1 hour before morning meal Orally Once a day , Taking Pravastatin Sodium 20 MG Tablet TAKE 2 TABLETS BY MOUTH ONCE DAILY , Taking Metoprolol Succinate ER 25 MG Tablet Extended Release 24 Hour TAKE 1 TABLET BY MOUTH ONCE DAILY , Taking Pramipexole Dihydrochloride 0.75 MG Tablet TAKE 1 TABLET BY MOUTH AT BEDTIME , Taking Sertraline HCl 100 MG Tablet TAKE 1 TABLET BY MOUTH ONCE DAILY , Taking Ramipril 10 MG Capsule TAKE 1 CAPSULE BY MOUTH ONCE DAILY , Taking hydrOXYzine HCl 25 MG Tablet 1 or 2 tab(s) orally once a day at bedtime as needed , Taking Alendronate Sodium 70 MG Tablet 1 tab(s) orally once a week , Medication List reviewed and reconciled with the patient * Allergies: C odeine, Doxycycline: vomiting. Objective: * Vitals: W t: 219.2, Temp: 99.0, BP: 130/68, HR: 91, O2 Sat: 95% on RA, Nurse: jairo, Ht: 65, BMI:36.47. * Examination: G eneral Examination: General Appearance: N AD. HEENT: sclera and conjunctiva clear, PERRLA, TM's normal, translucent, nose congested. Oral cavity: n o lesions, mucosa moist and WNL, no erythema. Neck: s upple, no lymphadenopathy. Chest: n ormal shape and expansion. Heart: R SR. Lungs: c lear to auscultation. Assessment: * Assessment: 1. S easonal allergic rhinitis, unspecified trigger - J30.2 (Primary) 2 . R enal insufficiency - N28.9 Plan: * Treatment: 2. R enal insufficiency L AB: P-Basic Metabolic Panel (BMP) (Collection Date & Time - 11/23/2024 11:19 AM) Value Reference Range B UN 30 H 8-23 - mg/dL * C alcium 8.9 8.6-10.4 - mg/dL * C hloride 104 97-108 - mmol/L * C O2 23 22-32 - mmol/L * C reatinine 1.13 H 0.50-1.00 - mg/dL * G lucose 199 H 65-99 - mg/dL * P otassium 4.6 3.5-5.3 - mmol/L * S odium 138 135-145 - mmol/L * e GFR by Creatinine 52 L >59 - mL/min/1.73m2 * Sammie Meadows 11/26/2024 10 :45:39 PM > Please let pt know renal function has improved slightly, will need to recheck in 2 months.Annita Ruiz 11/28/2024 11:07:16 AM > left message for return callGoAnnita belcher 11/28/2024 11:10:00 AM > pt informed of results * Procedure Codes: G 2211 Complex e/[place] [address] [place], G8752 MOST RECENT SYSTOLIC BP < 140MM HG, G8754 MOST RECENT DIASTOLIC BP < 90MM HG * Follow Up: v ia phone to report test results * Billing Information: * Visit Code: 31882 Office Visit, Est Pt., Level 3. * Procedure Codes: G2211 Complex e/[place]. [address] [place]. G8752 MOST RECENT SYSTOLIC BP < 140MM HG. G8754 MOST RECENT DIASTOLIC BP < 90MM HG. * Electronic signature of PRASHANTH Gee on 02/15/2025 at 03:03 PM EDT Sign off status: Pending * Provider: PRSAHANTH Pate Date: 0 11/23/2024 Generated for Nena higgins/Miracle/eTransmitting on: 0 02/15/2025 03:03 PM EDT History and Physical Notes * HPI (History of Present Illness) Category Sub-Category Detail Notes Category Not es HPI Patient is here today for Pt is here today for a 1 month check up with repeat labs. Pt sts she is doing well and has no concerns at this time Examination Category Sub-Category Detail Notes Category Not es General Examination HEENT: sclera and c onjunctiva clear, PERRLA, TM's normal, translucent, nose congested Heart: RSR Lungs: clear to auscultatio n General Appearance: NAD Neck: supple, no lymphaden opathy Oral cavity: no lesions, mucosa m oist and WNL, no erythema Chest: normal shape and exp ansion
--- OUTSIDE RECORDS SUMMARY | 2025-02-08 10:30 | XMS_ITS ---
Author Organization [facility] Address [address] [facility] [address] [id number] Care Team Providers Care Nursing Technician Name Role Phone Jose Enrique Boles Primary Care Provider [phone] Trell Rico Unavailable [phone] Allergies Allergen (clinical drug ingredient) Drug/Non Drug Allergy documented on EMR Reaction Allergy Type Onset Date Status doxycycline Doxycycline vomiting Drug Allergy Act marko codeine Codeine Unknown Drug Allergy Active Results Component Value Reference Range Notes CBC Venipuncture (in house) Reviewed date:02/11/2025 01:17:09 PM Interpretation:wbc 11.5 Performing Lab: Notes/Report: wbc 11.5 wbc 11.5 3.5 - 10 lymph 22.9 15 - 50 mid 5.7 2 - 15 gran 71.4 35 - 80 rbc 4.87 3.5 - 5.5 hgb 13.0 11.5 - 16.5 hct 39.5 35 - 55 mcv 81.1 75 - 100 mch 26.6 25 - 35 mchc 32.8 31 - 38 platlet 314 100 - 400 P-Comprehensive Metabolic Pa gillian (CMP) Reviewed date:02/11/2025 01:17:09 PM Interpretation:Normal Performing Lab: Notes/Report: Test performed by [facility] [address] [place] [address] , [address], [place] [address] Danilo Kerr MD, Collar Trimmer CLIA: [id number] Sodium 140 135-145 mmol/L Potassium 4.4 3.5-5.3 mmol/L Chloride 106 97-108 mmol/L CO2 22 22-32 mmol/L Glucose 62 65-99 mg/dL BUN 30 8-23 mg/dL Creatinine 1.21 0.50-1.00 mg/dL Calcium 9.5 8.6-10.4 mg/dL eGFR by Creatinine 47 >59 mL/min/1.73m2 Protein 7.2 6.0-8.3 g/dL Albumin 3.9 3.5-5.3 g/dL Alkaline Phosphatase 57 35-121 IU/L ALT (SGPT) 15 <5-47 IU/L AST (SGOT) 17 <5-40 IU/L Bilirubin, Total 0.4 <0.2-1.2 mg/dL A/G Ratio 1.2 1.1-2.5 P-T4 Free (thyroxine) Reviewed date:02/11/2025 01:17:09 PM Interpretation:Normal Performing Lab: Notes/Report: Test performed by [facility] [address] [place] [address] , [place] [address] Danilo Kerr MD, Collar Trimmer CLIA: [id number] Thyroxine Free (free T4) 1.07 0.86-1.76 ng/dL P-TSH Reviewed date:02/11/2025 01:17:09 PM Interpretation:Normal Performing Lab: Notes/Report: Test performed by [facility] [address] [place] [address] , [address], [place] [address] Danilo Kerr MD, Collar Trimmer CLIA: [id number] TSH 4.63 0.43-5.25 mU/L P-Microalbumin/Creatinine, R andom Urine Sample Reviewed date:02/11/2025 01:17:09 PM Interpretation:35 Performing Lab: Notes/Report: Test performed by [facility] [address] [place] [address] , [address], [place] [address] Danilo Kerr MD, Collar Trimmer CLIA: [id number] Albumin/Creatinine Ratio, Urine 35 0-30 ug/m g Microalbumin, Urine, Random 4.8 Creatinine, Urine 137.7 REASON FOR VISIT swelling Medications Medication SIG (Take, Route, Frequency, Duration) Notes Start Date End Date Status Rolling Walker with seat - 1 as needed 10/26/2024 Active Fluconazole 150 MG 1 tablet Orally once daily 07/27/2024 Not-Taking Farxiga 10 MG TAKE 1 TABLET EVERY DAY for 90 days Active Gabapentin 300 MG 1 cap(s) orally 3 times a day for 5 day(s) 08/18/2023 Active Glimepiride 4 MG 2 tab(s) orally once a day for 90 days Active Lantus SoloStar 100 UNIT/ML 58 units subcutaneously Two times a day Active Multivitamin 1 TAB ONCE A DAY *Please review and pick correct strength-formula tion from Qriously options. If intended option is not shown, discontinue and re-order from Quick Search* Active BD LEONILA 2ND GEN PEN NEEDLE 4MM X 32G - ONCE DAILY E11.9 *Please review for potential replacement for e-prescription and drug interaction check* 03/16/2022 Active HumaLOG KwikPen 100 UNIT/ML as directed Subcutaneous Active Mounjaro 7.5 MG/0.5ML as directed Subcutaneous Active Furosemide 20 MG 1 tablet Orally Once a day for 30 days 02/08/2025 Active Mounjaro 5 MG/0.5ML as directed Subcutaneous Not-Taking Omeprazole 20 MG 1 capsule 1/2 to 1 hour before morning meal Orally Once a day for 90 days Active Pravastatin Sodium 20 MG TAKE 2 TABLETS BY MOUTH ONCE DAILY for 90 Active Pramipexole Dihydrochloride 0.75 MG TAKE 1 TABLET BY MOUTH AT BEDTIME for 90 Active Sertraline HCl 100 MG TAKE 1 TABLET BY MOUTH ONCE DAILY for 90 Active Metoprolol Succinate ER 25 MG TAKE 1 TABLET BY MOUTH ONCE DAILY for 90 Active Alendronate Sodium 70 MG TAKE 1 TABLET BY MOUTH WEEKLY WITH 8 OZ OF PLAIN WATER 30 MINUTES BEFORE FIRST FOOD, DRINK OR MEDS. STAY UPRIGHT FOR 30 MINS for 84 Active Dymista 137-50 MCG/ACT 1 spray in each nostril Nasally Twice a day 12/07/2024 Active Ramipril 10 MG TAKE 1 CAPSULE BY MOUTH ONCE DAILY for 90 Active Levothyroxine Sodium 137 MCG 1 tablet in the morning on an empty stomach Orally Once a day for 90 days Active hydrOXYzine HCl 25 MG 1 or 2 tab(s) orally once a day at bedtime as needed for 90 days Active Problems Problem Type SNOMED Code ICD Code Onset Dates Problem Status W/U Status Risk Notes Problem Non morbid obesity (E66.9) Active confirmed Vital Signs Blood pressure systolic 120 mm Hg 02/09/20 25 Blood pressure diastolic 68 mm Hg 025 Heart Rate 72 /min 02/08/2025 Height 65 in 02/08/2025 Weight 226.8 lbs 02/08/2025 BMI 37.74 kg/m2 02/08/2025 Encounters Encounter Location Date Provider Diagnosis [facility] [address] [place], [place] [id number] 02/08/2025 Trell Rico Peripheral edema R60 .9 ; HTN (hypertension) I10 ; Hyperlipidemia E78.5 ; Hypothyroidism E03.9 ; Snoring R06.83 ; Non morbid obesity E66.9 and Renal insufficiency 593.9 Assessments Encounter Date Diagnosis (ICD Code) Assessment Notes Treatment Notes Treatment Clinical Notes Section Notes 02/08/2025 Peripheral edema (ICD-10 - R60.9) 02/08/2025 HTN (hypertension) (ICD-10 - I10) 02/08/2025 Hyperlipidemia (ICD-10 - E78.5) 02/08/2025 Hypothyroidism (ICD-10 - E03.9) 02/08/2025 Snoring (ICD-10 - R06.83) 02/08/2025 Non morbid obesity (ICD-10 - E66.9) 02/08/2025 Renal insufficiency (ICD-10 - 593.9) Plan Of Treatment Medication Medication Name Sig Start Date Stop Date Notes Furosemide 20 MG 1 tablet Orally Once a day for 30 days Pending Test Test Name Order Date sleep study 02/08/2025 Next Appt Details Follow Up: 3 Weeks, Reason: Provider Name:Trell Gutierres , 03/01/2025 02:15:00 PM, [address]10 [facility] 36 [facility], [address], [place], [place], [id number], Progress Notes * LOUIS MURPHYDOB:1950 ( 74 yo F)Acc No.[id number]:02/08/2025 Progress Notes Patient: LOUIS CARABALLO Provider: Adam Rico M.D. :1950 A ge:74 Y S ex:Female Date:02/08/2025 Address:[address] [place] [id number] Pcp:Jose Enrique Boles Subjective: * Chief Complaints: * 1 . Swelling. * HPI: H PI: 74 year old female presents with c/o Patient is here today for?Pt sts she saw a Dr. Arenas on 01/23 and sts her A1C was 8.3. A nkle/Foot: c/o Swelling P t sts she has swelling in both of her feet and upper legs for a month now. Denies : Pain. L eg: c/o Leg edema P t sts her upper legs are swelling as well.? * ROS: D ERMATOLOGY: no R fede. n o H marta. G ASTROENTEROLOGY: no N ausea. n o V omiting. n o D iarrhea.? U ROLOGY: no D ifficulty urinating. n o B lood in urine. * Medical History: H ypertension, Allergies, Hypothyroidism, Type 2 diabetes, Hyperlipidemia, Chronic kidney disease. * Surgical History: t ubal ligation 1981, [...] not smoke. * Medications: T aking Mounjaro 7.5 MG/0.5ML Solution Auto-injector as directed Subcutaneous , [...] *Please review and pick correct strength-formulation from YingYangan options. If intended option is not shown, [...] TAKE 1 TABLET EVERY DAY , Taking Rolling Walker with seat - - 1 as needed , Taking hydrOXYzine HCl 25 MG Tablet 1 or 2 tab(s) orally once a day at bedtime as needed , Taking Levothyroxine Sodium 137 MCG Tablet 1 tablet in the morning on an empty stomach Orally Once a day , Taking Dymista 137-50 MCG/ACT Suspension 1 spray in each nostril Nasally Twice a day , Taking Alendronate Sodium 70 MG Tablet TAKE 1 TABLET BY MOUTH WEEKLY WITH 8 OZ OF PLAIN WATER 30 MINUTES BEFORE FIRST FOOD, DRINK OR MEDS. STAY UPRIGHT FOR 30 MINS , Taking Metoprolol Succinate ER 25 MG Tablet Extended Release 24 Hour TAKE 1 TABLET BY MOUTH ONCE DAILY , Taking Sertraline HCl 100 MG Tablet TAKE 1 TABLET BY MOUTH ONCE DAILY , Taking Ramipril 10 MG Capsule TAKE 1 CAPSULE BY MOUTH ONCE DAILY , Taking Pramipexole Dihydrochloride 0.75 MG Tablet TAKE 1 TABLET BY MOUTH AT BEDTIME , Taking Pravastatin Sodium 20 MG Tablet TAKE 2 TABLETS BY MOUTH ONCE DAILY , Taking Omeprazole 20 MG Capsule Delayed Release 1 capsule 1/2 to 1 hour before morning meal Orally Once a day , Not-Taking Fluconazole 150 MG Tablet 1 tablet Orally once daily , Not-Taking Mounjaro 5 MG/0.5ML Solution Auto-injector as directed Subcutaneous , Medication List reviewed and reconciled with the patient * Allergies: C odeine, Doxycycline: vomiting. Objective: * Vitals: W t: 226.8, Temp: 97.4, BP: 120/68, HR: 72, O2 Sat: 96% on RA, Nurse: jairo, Ht: 65, BMI:37.74. * Examination: G eneral Examination: General Appearance: N AD, using a walker to assist with ambulation. Heart: R SR. Lungs: c lear to auscultation. Extremities: 1 + bilateral pitting l eg edema. ? Assessment: * Assessment: 1. P eripheral edema - R60.9 (Primary) 2 . H TN (hypertension) - I10 ? 3 . H yperlipidemia - E78.5 4 . H ypothyroidism - E03.9 5 . S noring - R06.83 6 . N on morbid obesity - E66.9 7 . R enal insufficiency - 593.9 Plan: * Treatment: Value Reference Range A /G Ratio 1.2 1.1-2.5 - * A lbumin 3.9 3.5-5.3 - g/dL * A lkaline Phosphatase 57 35-121 - IU/L * A LT (SGPT) 15 <5-47 - IU/L * A ST (SGOT) 17 <5-40 - IU/L * B ilirubin, Total 0.4 <0.2-1.2 - mg/dL * B UN 30 H 8-23 - mg/dL * C alcium 9.5 8.6-10.4 - mg/dL * C hloride 106 97-108 - mmol/L * C O2 22 22-32 - mmol/L * C reatinine 1.21 H 0.50-1.00 - mg/dL * G lucose 62 L 65-99 - mg/dL * P otassium 4.4 3.5-5.3 - mmol/L * S odium 140 135-145 - mmol/L * P rotein 7.2 6.0-8.3 - g/dL * e GFR by Creatinine 47 L >59 - mL/min/1.73m2 * Ida Bolton 02/11/2025 01 :16:59 PM EDT > See phone encounter ?LAB: CBC Venipuncture (in house) (Collection Date & Time - 02/08/2025)?wbc 11.5* Value Reference Range w bc 11.5 3.5 - 10 * l ymph 22.9 15 - 50 * m id 5.7 2 - 15 * g ran 71.4 35 - 80 * r bc 4.87 3.5 - 5.5 * h gb 13.0 11.5 - 16.5 * h ct 39.5 35 - 55 * m cv 81.1 75 - 100 * m ch 26.6 25 - 35 * m chc 32.8 31 - 38 * p latlet 314 100 - 400 * Shavonne Venegas 02/08/2025 04:30 :16 PM EDT > CheIda 02/11/2025 01:16:59 PM EDT > See phone encounter 2.?HTN (hypertension)?LAB: P-Comprehensive Metabolic Panel (CMP) (Collection Date & Time - 02/08/2025 02:05 PM)?Normal* Value Reference Range A /G Ratio 1.2 1.1-2.5 - * A lbumin 3.9 3.5-5.3 - g/dL * A lkaline Phosphatase 57 35-121 - IU/L * A LT (SGPT) 15 <5-47 - IU/L * A ST (SGOT) 17 <5-40 - IU/L * B ilirubin, Total 0.4 <0.2-1.2 - mg/dL * B UN 30 H 8-23 - mg/dL * C alcium 9.5 8.6-10.4 - mg/dL * C hloride 106 97-108 - mmol/L * C O2 22 22-32 - mmol/L * C reatinine 1.21 H 0.50-1.00 - mg/dL * G lucose 62 L 65-99 - mg/dL * P otassium 4.4 3.5-5.3 - mmol/L * S odium 140 135-145 - mmol/L * P rotein 7.2 6.0-8.3 - g/dL * e GFR by Creatinine 47 L >59 - mL/min/1.73m2 * Ida Bolton 02/11/2025 01 :16:59 PM EDT > See phone encounter ?LAB: P-Microalbumin/Creatinine, Random Urine Sample (Collection Date & Time - 02/08/2025 02:05 PM)?35* Value Reference Range A lbumin/Creatinine Ratio, Urine 35 H 0-30 - ug /mg * C reatinine, Urine 137.7 - mg/dL * M icroalbumin, Urine, Random 4.8 - mg/dL * Ida Bolton 02/11/2025 01 :16:59 PM EDT > See phone encounter ?Imaging: sleep study* Home studyTaKamala johnson 02/12 11:31:50 AM EDT > faxed to [facility] 3.?Hyperlipidemia?LAB: P-Comprehensive Metabolic Panel (CMP) (Collection Date & Time - 02/08/2025 02:05 PM)?Normal* Value Reference Range A /G Ratio 1.2 1.1-2.5 - * A lbumin 3.9 3.5-5.3 - g/dL * A lkaline Phosphatase 57 35-121 - IU/L * A LT (SGPT) 15 <5-47 - IU/L * A ST (SGOT) 17 <5-40 - IU/L * B ilirubin, Total 0.4 <0.2-1.2 - mg/dL * B UN 30 H 8-23 - mg/dL * C alcium 9.5 8.6-10.4 - mg/dL * C hloride 106 97-108 - mmol/L * C O2 22 22-32 - mmol/L * C reatinine 1.21 H 0.50-1.00 - mg/dL * G lucose 62 L 65-99 - mg/dL * P otassium 4.4 3.5-5.3 - mmol/L * S odium 140 135-145 - mmol/L * P rotein 7.2 6.0-8.3 - g/dL * e GFR by Creatinine 47 L >59 - mL/min/1.73m2 * Ida Bolton 02/11/2025 01 :16:59 PM EDT > See phone encounter 4.?Hypothyroidism?LAB: P-T4 Free (thyroxine) (Collection Date & Time - 02/08/2025 02:05 PM)? Normal* Value Reference Range T hyroxine Free (free T4) 1.07 0.86-1.76 - ng/d L * Ida Bolton 02/11/2025 01 :16:59 PM EDT > See phone encounter ?LAB: P-TSH (Collection Date & Time - 02/08/2025 02:05 PM)?Normal* Value Reference Range T SH 4.63 0.43-5.25 - mU/L * Ida Bolton 02/11/2025 01 :16:59 PM EDT > See phone encounter 5.?Snoring?Imaging: sleep study* Kamala Preston 02/12 11:31:50 AM EDT > faxed to [facility] 6.?Non morbid obesity?Imaging: sleep study* Duarte Kamala Mcgee 02/12 11:31:50 AM EDT > faxed to [facility] 7.?Renal insufficiency?LAB: P-Comprehensive Metabolic Panel (CMP) (Collection Date & Time - 02/08/2025 02:05 PM)?Normal* Value Reference Range A /G Ratio 1.2 1.1-2.5 - * A lbumin 3.9 3.5-5.3 - g/dL * A lkaline Phosphatase 57 35-121 - IU/L * A LT (SGPT) 15 <5-47 - IU/L * A ST (SGOT) 17 <5-40 - IU/L * B ilirubin, Total 0.4 <0.2-1.2 - mg/dL * B UN 30 H 8-23 - mg/dL * C alcium 9.5 8.6-10.4 - mg/dL * C hloride 106 97-108 - mmol/L * C O2 22 22-32 - mmol/L * C reatinine 1.21 H 0.50-1.00 - mg/dL * G lucose 62 L 65-99 - mg/dL * P otassium 4.4 3.5-5.3 - mmol/L * S odium 140 135-145 - mmol/L * P rotein 7.2 6.0-8.3 - g/dL * e GFR by Creatinine 47 L >59 - mL/min/1.73m2 * Ida Bolton 02/11/2025 01 :16:59 PM EDT > See phone encounter ?LAB: P-Microalbumin/Creatinine, Random Urine Sample (Collection Date & Time - 02/08/2025 02:05 PM)?35* Value Reference Range A lbumin/Creatinine Ratio, Urine 35 H 0-30 - ug /mg * C reatinine, Urine 137.7 - mg/dL * M icroalbumin, Urine, Random 4.8 - mg/dL * Ida Bolton 02/11/2025 01 :16:59 PM EDT > See phone encounter ?LAB: CBC Venipuncture (in house) (Collection Date & Time - 02/08/2025)?wbc 11.5* Value Reference Range w bc 11.5 3.5 - 10 * l ymph 22.9 15 - 50 * m id 5.7 2 - 15 * g ran 71.4 35 - 80 * r bc 4.87 3.5 - 5.5 * h gb 13.0 11.5 - 16.5 * h ct 39.5 35 - 55 * m cv 81.1 75 - 100 * m ch 26.6 25 - 35 * m chc 32.8 31 - 38 * p latlet 314 100 - 400 * Shavonne Venegas 02/08/2025 04:30 :16 PM EDT > Ida Bolton 02/11/2025 01:16:59 PM EDT > See phone encounter * Procedure Codes: G 2211 Complex e/[place], [address] CBC WITH AUTO DIFF, G8950 PREHTN/HTN BP DOC INDCD F/U DOC, G8752 MOST RECENT SYSTOLIC BP < 140MM HG, G8754 MOST RECENT DIASTOLIC BP < 90MM HG, 1036F TOBACCO NON-USER, 3017F COLORECTAL CA SCREEN DOC REV * Preventive Medicine: Screening / Special Tests: C olonoscopy c olonoscopy performed 08/15/2024, polyps, diverticulosis, hemorrhoids, repeat 5 years. * Follow Up: 3 Weeks * Billing Information: * Visit Code: 33407 Office Visit, Est Pt., Level 4. * Procedure Codes: G2211 Complex e/[place]. [address] CBC WITH AUTO DIFF. G8950 PREHTN/HTN BP DOC INDCD F/U DOC. G8752 MOST RECENT SYSTOLIC BP < 140MM HG. G8754 MOST RECENT DIASTOLIC BP < 90MM HG. 1036F TOBACCO NON-USER. 3017F COLORECTAL CA SCREEN DOC REV. * Electronic signature of Katarzyna Rico MD on 02/15/2025 at 03:03 PM EDT Sign off status: Pending * Provider: Adam Rico M.D. Date: 0 02/08/2025 Generated for Nena higgins/Miracle/Cathyitting on: 0 02/15/2025 03:03 PM EDT History and Physical Notes * HPI (History of Present Illness) Category Sub-Category Detail Notes Category Not es Ankle/Foot Pain Swelling Pt sts she has swell ing in both of her feet and upper legs for a month now HPI Patient is here today for Pt sts she saw a Dr. Arenas on 01/23 and sts her A1C was 8.3 Leg Leg edema Pt sts her upper legs are sw elling as well Examination Category Sub-Category Detail Notes Category Not es General Examination Heart: RSR Lungs: clear to auscultatio n Extremities: 1+ bilateral pitting leg edema General Appearance: NAD, using a walker to assist with ambulation
--- OUTSIDE RECORDS SUMMARY | 2025-02-09 09:42 | XMS_ITS ---
Author Organization [facility] Address [address] [place] [address] [address] [place], [place] [id number] Care Team Providers Care Compensation Vice President Name Role Phone Jose Enrique Boles Primary Care Provider [phone] REASON FOR VISIT due for screening Encounters Encounter Location Date Provider Diagnosis [facility] 36 [facility] [address] [place], [place] [id number] 02/09/2025 Jose Enrique Boles Breast cancer screening Z12.39 Assessments Encounter Date Diagnosis (ICD Code) Assessment Notes Treatment Notes Treatment Clinical Notes Section Notes 02/09/2025 Breast cancer screening (ICD-10 - Z12.39) Plan Of Treatment Pending Test Test Name Order Date Mammogram 02/09/2025 Next Appt Details Provider Name:Trell Gutierres ry, 03/01/2025 02:15:00 PM, 1210 [facility] 36 [facility], [address], [place], [place], [id number], Progress Notes * LOUIS MURPHYDOB:1950 ( 74 yo F)Acc No.[id number]:02/09/2025 Patient: Dhruv YOUNGBLOOD LOUIS :1950 A ge:74 Y S ex:Female Address:[address] [place] [id number] Subjective: * Chief Complaints: * D ue for screening * Medical History: * Surgical History: * Hospitalization/Major Diagno stic Procedure: * Medications: Objective: * Vitals: * Physical Examination: Assessment: * Assessment: 1. B reast cancer screening - Z12.39 (Primary) Plan: * Treatment: * Procedure Codes: * true * Date: Generated for Nena higgins/Miracle/Marco on: 0 02/15/2025 03:02 PM EDT
--- NOTE | 2025-02-15 15:02 | MM_ITS ---
PROCEDURE INFORMATION: Exam: MG Bilateral Screening 3D Mammography Exam date and time: 02/15/2025 3:26 PM Age: 74 years old Clinical indication: Screening examination. Family history of breast carcinoma. Personal history of skin cancer and colon cancer. TECHNIQUE: Imaging protocol: Bilateral Screening tomosynthesis and 2D mammography including computer-aided detection (CAD) when performed. COMPARISON: 1. MG MM DIG SCREENING MAMM BI W/CAD 12/16/2023 10:33 AM 2. MG MM DIG SCREENING MAMM BI W/CAD 11/13/2020 2:17 PM 3. MG MM DIG SCREENING MAMM BI W/CAD 10/18/2019 10:04 AM 4. MG SCBI MM Dig screening mamm BI w/CAD 09/18/2018 9:12 AM 5. MG DIGMAMMS MAMMOGRAM SCREEN-[employer] BU[employer]ER N/C 01/13/2010 10:27 AM 6. MG DIGMAMMDX MAMMOGRAM DX-[employer] BUYER N/C 10/11/2005 10:27 AM FINDINGS: MAMMOGRAPHY: Breast composition: There are scattered areas of fibroglandular density. Mass: No suspicious masses. Architectural distortion: No suspicious distortion. Calcifications: No suspicious calcifications. Asymmetric density: None. Skin thickening: None. Axillary adenopathy: None. IMPRESSION: 1. No mammographic evidence of malignancy. Annual screening is recommended unless otherwise clinically indicated. 2. Given the reported risk factors for this patient, a breast cancer risk assessment may prove useful for further evaluation. ASSESSMENT: BI-RADS Category 1: Negative.
--- OUTSIDE RECORDS SUMMARY | 2025-02-15 15:02 | XMS_ITS | Clinical Summary ---
Author Organization Healthcare Address [address] [place] [address] Care Team Providers Care Manager [employer] Name Role Phone Sammie Meadows Primary Care Provider [phone] Allergies Active Allergy Reactions Criticality Noted Date [...] Cigarettes Q uit: 2000 Smokeless Tobacco: Never Tobacco Cessation:Counseling Given: Not [...] Screening 1950 [facility]-Medicare Annual Wellness (AWV) 1950 [facility]-Infant/Child/Adol SDOH Screenings 1952 [facility]- SDOH Screenings 1970 [facility]-Adult SDOH Screenings 1970 CT Colonography 1997 Colonoscopy 1997 FIT-DNA 1997 FIT 1997 FOBT 1997 Sigmoidoscopy 1997 [facility]-Colorectal Cancer Screening 1997 [facility]-Breast Cancer Screening 2002 [facility]-Pneumococcal Vaccine: 50 + Years (1 of 1 - PCV) 2002 [facility]-Zoster Vaccines (1 of 2) 2002 [id number] Vaccine ( - 2023- season) 2024 [facility]-Influenza Vaccine (Seas[place] n Ended) 2025 [facility]-RSV Vaccine: 60+ Years o r (1 - 1-dose 75+ series) 2027 [facility]-DTaP,Tdap,and Td Vaccine s (3 - Td or Tdap) 06/21/2029 06/21/2019, 09/04/2018 [facility]-Obesity Intervention Completed 09/16/2022 HPV Vaccines Aged Out No longer eligi ble based on patient's age to complete this topic [facility]-HIB Vaccines Aged Out No longer e [...] patient's age to complete this topic Insurance [place] [facility] MEDICARE Care Teams Manager [employer] Relationship Specialty Start Date End Date Sammie Meadows PA [address] [facility] [address] [place] [id number] [facility] - General 07/13/22
--- OUTSIDE RECORDS SUMMARY | 2025-02-15 15:03 | XMS_ITS | Patient Health Record ---
Author Organization [facility] Address [address] [facility] [address] [id number] Care Team Providers Care Cashier Wrapper Name Role Phone Jose Enrique Boles Primary Care Provider Trisha Trlel Unavailable [phone] Sammie Meadows Unavailable [phone] Allergies Allergen (clinical drug ingredient) Drug/Non Drug Allergy documented on EMR Reaction Allergy Type Onset Date Status doxycycline Doxycycline vomiting Drug Allergy Act marko codeine Codeine Unknown Drug Allergy Active Results Component Value Reference Range Notes CBC Venipuncture (in house) Reviewed date:03/16/2024 11:03:19 AM Interpretation: Performing Lab: Notes/Report: wbc 11.4 3.5 - 10 lymph 15.9% 15 - 50 mid 10.4% 2 - 15 gran 73.7% 35 - 80 rbc 5.34 3.5 - 5.5 hgb 13.8 11.5 - 16.5 hct 42.7 35 - 55 mcv 79.9 75 - 100 mch 25.8 25 - 35 mchc 32.3 31 - 38 platlet 323 100 - 400 Glycohemoglobin A1c (in hous e) Reviewed date:03/16/2024 11:03:19 AM Interpretation:7.9 Performing Lab: Notes/Report: 7.9 glycohemoglobin 7.9% 5 - 6.5 % P-Comprehensive Metabolic Pa gillian (CMP) Reviewed date:03/16/2024 11:03:18 AM Interpretation:gluc 156, bun 28, Cr 1.17, gfr 50 Performing Lab: Notes/Report: Test performed by [facility], [address] , [address], [place] [address] Danilo Kerr MD, Sanitation Director CLIA: [id number] Sodium 142 135-145 mmol/L Potassium 4.2 3.5-5.3 mmol/L Chloride 105 97-108 mmol/L CO2 24 22-32 mmol/L Glucose 156 65-99 mg/dL BUN 28 8-23 mg/dL Creatinine 1.17 0.50-1.00 mg/dL Calcium 10.0 8.6-10.4 mg/dL eGFR by Creatinine 50 >59 mL/min/1.73m2 Protein 7.7 6.0-8.3 g/dL Albumin 4.2 3.5-5.3 g/dL Alkaline Phosphatase 68 35-121 IU/L ALT (SGPT) 17 <5-47 IU/L AST (SGOT) 18 <5-40 IU/L Bilirubin, Total 0.3 <0.2-1.2 mg/dL A/G Ratio 1.2 1.1-2.5 mg/dL P-T4 Free (thyroxine) Reviewed date:03/16/2024 11:03:18 AM Interpretation:Normal Performing Lab: Notes/Report: Test performed by [facility] [address] [place] [address] , [address], [place] [id number] Danilo Kerr MD, Sanitation Director CLIA: [id number] Thyroxine Free (free T4) 1.25 0.86-1.76 ng/dL P-Lipid Panel Reviewed date:03/16/2024 11:03:19 AM Interpretation:chol 200, trigs 324, chol/hdl 4.88, non-hdl 159 Performing Lab: Notes/Report: Test performed by [facility] [address] [place] [address] , [address], [place] [address] Danilo Kerr MD, Sanitation Director CLIA: [id number] Cholesterol 200 <200 mg/dL Triglycerides 324 <150 mg/dL HDL Cholesterol 41 >39 mg/dL Cholesterol / HDL Ratio 4.88 0.00-4.44 Ratio Non-HDL Cholesterol 159 <130 mg/dL LDL Cholesterol (Calculation) 94 <130 mg/dL LDL Cholesterol Levels* Less than 100 mg/dL Optimal 100 to 129 mg/dL Near Optimal/ Above Optimal 130 to 159 mg/dL Borderline High 160 to 189 mg/dL High 190 mg/dL and above Very High * Categories as recommended by the 2004 ATPIII guidelines LDL/HDL Ratio 2.3 <3.3 Ratio LDL Cholesterol Patient History Test Date: 03/14/2024 LDL Results: 94 Units: mg/dL % Change: - P-TSH Reviewed date:03/16/2024 11:03:19 AM Interpretation:Normal Performing Lab: Notes/Report: Test performed by [facility], [address] , [address] , [place] [address] Danilo Kerr MD, Sanitation Director CLIA: [id number] TSH 2.48 0.43-5.25 mU/L CBC Venipuncture (in house) Reviewed date:02/11/2025 01:17:09 [...] - 38 platlet 314 100 - 400 CT Scan : Chest, low dose Reviewed date:05/30/2024 01:09:05 PM Interpretation:nothing suspicious, annual f/u Performing Lab: Notes/Report: nothing suspicious, annual f/u colonoscopy Reviewed date:08/16/2024 11:45:39 AM Interpretation:DR MENDIOLA Performing Lab: Notes/Report: DR MENDIOLA Bone density Reviewed date:05/30/2024 01:09:05 PM Interpretation:Normal Performing Lab: Notes/Report: Normal Bone density normal P-Microalbumin/Creatinine, R andom Urine Sample Reviewed date:05/10/2024 04:47:27 PM Interpretation:a/c 94 Performing Lab: Notes/Report: Test performed by [facility] [address] [place] [address] , [address], [place] [address] Danilo Kerr MD, Sanitation Director CLIA: [id number] Albumin/Creatinine Ratio, Urine 94 0-30 ug/m g Microalbumin, Urine, Random 11.7 Creatinine, Urine 124.4 P-Comprehensive Metabolic Pa gillian (CMP) Reviewed date:02/11/2025 01:17:09 PM Interpretation:Normal Performing Lab: Notes/Report: Test performed by [facility] [address] [place] [address] , [address], [place] [address] Danilo Kerr MD, Sanitation Director CLIA: [id number] Sodium 140 135-145 mmol/L Potassium 4.4 3.5-5.3 [...] Interpretation:Normal Performing Lab: Notes/Report: Test performed by [facility] [address] , [address], [place] [address] Danilo Kerr MD, Sanitation Director CLIA: [id number] Thyroxine Free (free T4) 1.07 0.86-1.76 ng/dL P-TSH Reviewed date:02/11/2025 01:17:09 PM Interpretation:Normal Performing Lab: Notes/Report: Test performed by [facility] [address] , [address], [place] [address] Danilo Kerr MD, Sanitation Director CLIA: [id number] TSH 4.63 0.43-5.25 mU/L P-Microalbumin/Creatinine, R andom Urine Sample Reviewed date:02/11/2025 01:17:09 PM Interpretation:35 Performing Lab: Notes/Report: Test performed by [facility] [address] , [address], [place] [address] Danilo Kerr MD, Sanitation Director CLIA: [id number] Albumin/Creatinine Ratio, Urine 35 0-30 ug/m g Microalbumin, Urine, Random 4.8 Creatinine, Urine 137.7 CBC Venipuncture (in house) Reviewed date:10/26/2024 04:56:13 PM Interpretation: Performing Lab: Notes/Report: wbc 11.9 3.5 - 10 lymph 18.2 15 - 50 mid 4.5 2 - 15 gran 77.3 35 - 80 rbc 5.45 3.5 - 5.5 hgb 14.5 11.5 - 16.5 hct 43.7 35 - 55 mcv 80.2 75 - 100 mch 26.6 25 - 35 mchc 33.2 31 - 38 platlet 314 100 - 400 Glycohemoglobin A1c (in hous e) Reviewed date:10/31/2024 08:57:38 AM Interpretation:9.2% Performing Lab: Notes/Report: 9.2% glycohemoglobin 9.2% 5 - 6.5 % P-Comprehensive Metabolic Pa gillian (CMP) Reviewed date:10/31/2024 08:57:38 AM Interpretation:gluc 255, bun 33, Cr 1.25, gfr 46 Performing Lab: Notes/Report: Test performed by [facility] [address] [place] [address] [address], [place] [address] Danilo Kerr MD, Sanitation Director CLIA: [id number] Sodium 136 135-145 mmol/L Potassium 4.8 3.5-5.3 mmol/L Chloride 99 97-108 mmol/L CO2 24 22-32 mmol/L Glucose 255 65-99 mg/dL BUN 33 8-23 mg/dL Creatinine 1.25 0.50-1.00 mg/dL Calcium 9.6 8.6-10.4 mg/dL eGFR by Creatinine 46 >59 mL/min/1.73m2 Protein 7.7 6.0-8.3 g/dL Albumin 4.2 3.5-5.3 g/dL Alkaline Phosphatase 68 35-121 IU/L ALT (SGPT) 15 <5-47 IU/L AST (SGOT) 13 <5-40 IU/L Bilirubin, Total 0.5 <0.2-1.2 mg/dL A/G Ratio 1.2 1.1-2.5 P-T4 Free (thyroxine) Reviewed date:10/31/2024 08:57:38 AM Interpretation:Normal Performing Lab: Notes/Report: Test performed by [facility] [address] [place] [address] , Na[address], [place] [address] Danilo Kerr MD, Sanitation Director CLIA: [id number] Thyroxine Free (free T4) 1.35 0.86-1.76 ng/dL P-Lipid Panel Reviewed date:10/31/2024 08:57:38 AM Interpretation:trigs 298, chol/hdl 4.78, non-hdl 151 Performing Lab: Notes/Report: Test performed by [facility] [address] [place] [address] [address], [place] [address] Danilo Kerr MD, Sanitation Director CLIA: [id number] Cholesterol 191 <200 mg/dL Triglycerides 298 <150 mg/dL HDL Cholesterol 40 >39 mg/dL Cholesterol / HDL Ratio 4.78 0.00-4.44 Ratio Non-HDL Cholesterol 151 <130 mg/dL LDL Cholesterol (Calculation) 91 <130 mg/dL LDL Cholesterol Levels* Less than 100 mg/dL Optimal 100 to 129 mg/dL Near Optimal/ Above Optimal 130 to 159 mg/dL Borderline High 160 to 189 mg/dL High 190 mg/dL and above Very High * Categories as recommended by the 2004 ATPIII guidelines LDL/HDL Ratio 2.3 <3.3 Ratio LDL Cholesterol Patient History Test Date: 03/14/2024 LDL Results: 94 Units: mg/dL % Change: - Test Date: 10/26/2024 LDL Results: 91 Units: mg/dL % Change: -3% P-TSH Reviewed date:10/31/2024 08:57:38 AM Interpretation:Normal Performing Lab: Notes/Report: Test performed by [facility] [address] [facility] , [address], [place] [address] Danilo Kerr MD, Sanitation Director CLIA: [id number] TSH 2.68 0.43-5.25 mU/L P-Basic Metabolic Panel (BMP ) Reviewed date:11/28/2024 11:10:09 AM Interpretation: Performing Lab: Notes/Report: Test performed by [facility] [address] [place] [address] , [address], [place] [address] Danilo Kerr MD, Sanitation Director CLIA: [id number] Sodium 138 135-145 mmol/L Potassium 4.6 3.5-5.3 mmol/L Chloride 104 97-108 mmol/L CO2 23 22-32 mmol/L Glucose 199 65-99 mg/dL BUN 30 8-23 mg/dL Creatinine 1.13 0.50-1.00 mg/dL Calcium 8.9 8.6-10.4 mg/dL eGFR by Creatinine 52 >59 mL/min/1.73m2 Medications Medication SIG (Take, Route, Frequency, Duration) Notes Start Date End Date Status Sertraline HCl 100 MG TAKE 1 TABLET BY MOUTH ONCE DAILY for 90 Active Furosemide 20 MG 1 tablet Orally Once a day for 30 days 02/08/2025 Active Metoprolol Succinate ER 25 MG TAKE 1 TABLET BY MOUTH ONCE DAILY for 90 Active Alendronate Sodium 70 MG TAKE 1 TABLET BY MOUTH WEEKLY WITH 8 OZ OF PLAIN WATER 30 MINUTES BEFORE FIRST FOOD, DRINK OR MEDS. STAY UPRIGHT FOR 30 MINS for 84 Active Dymista 137-50 MCG/ACT 1 spray in each nostril Nasally Twice a day 12/07/2024 Active Levothyroxine Sodium 137 MCG 1 tablet in the morning on an empty stomach Orally Once a day for 90 days Active hydrOXYzine HCl 25 MG 1 or 2 tab(s) orally once a day at bedtime as needed for 90 days Active Rolling Walker with seat - 1 as needed 10/26/2024 Active Mounjaro 5 MG/0.5ML as directed Subcutaneous Not-Taking Fluconazole 150 MG 1 tablet Orally once daily 07/27/2024 Not-Taking Omeprazole 20 MG 1 capsule 1/2 to 1 hour before morning meal Orally Once a day for 90 days Active Farxiga 10 MG TAKE 1 TABLET [...] review and pick correct strength-formula tion from [employer] options. If intended option is not shown, discontinue and re-order from Quick Search* Active BD LEONILA 2ND GEN PEN NEEDLE 4MM X 32G - ONCE DAILY E11.9 *Please review for potential replacement for e-prescription and drug interaction check* 03/16/2022 Active HumaLOG KwikPen 100 UNIT/ML as directed Subcutaneous Active Mounjaro 7.5 MG/0.5ML as directed Subcutaneous Active Pravastatin Sodium 20 MG TAKE 2 TABLETS BY MOUTH ONCE DAILY for 90 Active Pramipexole Dihydrochloride 0.75 MG TAKE 1 TABLET BY MOUTH AT BEDTIME for 90 Active Ramipril 10 MG TAKE 1 CAPSULE BY MOUTH ONCE DAILY for 90 Active Immunizations Vaccine Route Administration Date Status Comme nts Tetanus Tdap-Adacel (over 7yrs) IM Intramuscular 09/04/2018 Administered Tetanus Tdap-Adacel (over 7yrs) IM Intramuscular 06/21/2019 Administered Tetanus Tdap-Adacel (over 7yrs) Unknown 06/21/2019 Administered Shingrix Unknown 07/16/2017 Administered Shingrix IM Intramuscular 11/04/2020 Administered Prevnar (PCV20) IM Intramuscular 05/29/2024 Administered Prevnar (PCV13) Unknown 09/02/2017 Administered Prevnar (PCV13) Unknown 09/02/2018 Administered PNEUMOVAX 23 VACCINE IM Intramuscular 11/04/2020 Administe red Hepatitis A (adult) IM Intramuscular 01/11/2019 Administer ed Hepatitis A (adult) Unknown 01/11/2019 Administered Fluzone Quad-Medicare (6months&older) Unknown 06/16/2021 Administered Fluzone Quad (6months&older) Unknown 07/10/2015 Administered Fluzone Quad (6months&older) IM Intramuscular 06/22/2016 Administered Fluzone Quad (6months&older) Unknown 06/28/2017 Administered Fluzone PF Quad (6-35 months) Unknown 06/22/2016 Administered Fluzone PF Quad (6-35 months) Unknown 06/28/2017 Administered Fluzone High Dose (65yr and older) IM Intramuscular 06/05/2018 Administered Fluzone High Dose (65yr and older) Unknown 06/21/2019 Administered Fluzone High Dose (65yr and older) Unknown 06/09/2020 Administered Fluzone High Dose (65yr and older) Unknown 06/04/2022 Administered Fluzone High Dose (65yr and older) Unknown 06/20/2023 Administered Fluzone High Dose (65yr and older) IM Intramuscular 05/29/2024 Administered COVID 19 Moderna Unknown 11/25/2020 Administered COVID 19 Moderna Unknown 12/26/2020 Administered COVID 19 Moderna Unknown 08/06/2021 Administered Problems Problem Type SNOMED Code ICD Code Onset Dates Problem Status W/U Status Risk Notes Problem 647714711 Type 2 diabetes mellitus without complications (E11.9) Active confirmed Problem Insomnia (150911548) Insomnia (G47.00) Active confirmed Problem Hypertension (15627434) HTN (hypertension) (I10) Active confirmed Problem Hyperlipidemia (70048227) Hyperlipidemia (E78.5) Active confirmed Problem Osteopenia (828596915) Osteopenia (M85.80) Active confirmed Problem 329719576 History of colon cancer (Z85.038) Active confirmed Problem 108562928 Depression with anxiety (F41.8) Active confirmed Problem Environmental allergy (431249481) Environmental allergies (Z91.09) Active confirmed Problem 4533038 Primary insomnia (F51.01) Active confirmed Problem 489277502 Dependence on ot her enabling machines and devices (Z99.89) Active confirmed Problem Pulmonary nodule (615332317) Pulmonary nodule (R91.1) Active confirmed Problem 093233225 snf (curre nt) use of insulin (Z79.4) Active confirmed Problem 494511866 BMI 35.0-35.9,ad ult (Z68.35) Active confirmed Problem 34131485 Restless leg (G25.81) Active confirmed Problem 283872310 Gastroesophageal reflux disease without esophagitis (K21.9) Active confirmed Problem Hypothyroidism (33960140) Hypothyroidism (E03.9) Active confirmed Problem Depression (784224796) Depression (F32.9) Active confirmed Problem 75282373 JOSE LUIS (obstructive sleep apnea) (G47.33) Active confirmed Problem 060289800 Diabetic polyneuropathy associated with type 2 diabetes mellitus (E11.42) Active confirmed Problem Body mass index 30.00 to 34.99 (388089886988439) BMI 31.0-31.9,adult (Z68.31) Active confirmed Problem Sciatica (34005222) Low back pain with radiation, unspecified laterality (M54.40) Active confirmed Problem Type II diabetes mellitus without complication (561890522) Type 2 diabetes mellitus without complication, without long-term current use of insulin (E11.9) Active confirmed Problem 79517819 Type 2 diabetes mellitus with diabetic polyneuropathy, without long-term current use of insulin (E11.42) Active confirmed Problem 355076209 Tobacco use disorder (F17.200) Active confirmed Problem 61482835 Irritable bowel syndrome with both constipation and diarrhea (K58.2) Active confirmed Problem Obesity (155662253) Non morbid obesity (E66.9) Active confirmed Problem 199690044 Seasonal allergi c rhinitis, unspecified trigger (J30.2) Active confirmed Problem 520404434 Uncontrolled typ e 2 diabetes mellitus with hyperglycemia (E11.65) Active confirmed Vital Signs Heart Rate 72 /min 02/08/2025 Blood pressure diastolic 68 mm Hg 02/08/2025 Height 65 in 02/08/2025 Blood pressure systolic 120 mm Hg 02/08/2025 Weight 226.8 lbs 02/08/2025 BMI 37.74 kg/m2 02/08/2025 Encounters Encounter Location Date Provider Diagnosis [facility] [facility] [address] [id number] 03/14/2024 Sammie Meadows Neoplasm of uncertai n behavior D48.9 ; Type 2 diabetes mellitus without complications E11.9 ; Hyperlipidemia E78.5 ; Hypothyroidism E03.9 ; HTN (hypertension) I10 ; Depression F32.9 ; Environmental allergies Z91.09 ; Osteopenia M85.80 ; Restless leg G25.81 ; Gastroesophageal reflux disease without esophagitis K21.9 ; Diabetic polyneuropathy associated with type 2 diabetes mellitus E11.42 ; Insomnia G47.00 ; exterminator termite (current) use of insulin Z79.4 and JOSE LUIS (obstructive sleep apnea) G47.33 [facility] [address] [place] [address] [id number] 04/20/2024 Sammie Meadows Adult general medica l examination Z00.00 ; HTN (hypertension) I10 ; Type 2 diabetes mellitus without complications E11.9 ; Hyperlipidemia E78.5 ; Hypothyroidism E03.9 ; Depression F32.9 ; Environmental allergies Z91.09 ; Osteopenia M85.80 ; History of colon cancer Z85.038 ; Restless leg G25.81 ; Gastroesophageal reflux disease without esophagitis K21.9 ; Diabetic polyneuropathy associated with type 2 diabetes mellitus E11.42 ; Insomnia G47.00 ; Pulmonary nodule R91.1 ; snf (current) use of insulin Z79.4 ; JOSE LUIS (obstructive sleep apnea) G47.33 ; BMI 35.0-35.9,adult Z68.35 ; Osteoporosis screening Z13.820 ; Colon cancer screening Z12.11 and Tobacco use disorder F17.200 [facility] [address] [place] [id number] 05/29/2024 Sammie Meadows Encounter for immunization Z23 [facility] [place] [id number] 10/26/2024 Sammie Meadows Physical debility R5 3.81 ; HTN (hypertension) I10 ; Type 2 diabetes mellitus without complications E11.9 ; Hyperlipidemia E78.5 ; Hypothyroidism E03.9 ; Depression F32.9 ; Environmental allergies Z91.09 ; Restless leg G25.81 ; Gastroesophageal reflux disease without esophagitis K21.9 ; Diabetic polyneuropathy associated with type 2 diabetes mellitus E11.42 ; Insomnia G47.00 ; History of colon cancer Z85.038 ; Osteopenia M85.80 ; Pulmonary nodule R91.1 ; snf (current) use of insulin Z79.4 and JOSE LUIS (obstructive sleep apnea) G47.33 [facility] [place] [id number] [address] [place] [id number] 11/23/2024 Sammie Meadows Seasonal allergic rhinitis, unspecified trigger J30.2 and Renal insufficiency N28.9 [facility] [place] [id number] 02/08/2025 Trell [place] Peripheral edema R60 .9 ; HTN (hypertension) I10 ; Hyperlipidemia E78.5 ; Hypothyroidism E03.9 ; Snoring R06.83 ; Non morbid obesity E66.9 and Renal insufficiency 593.9 [facility] [place] [id number] 03/16/2024 R Dhiraj Elvi [facility] [address] [place], [place] [id number] 03/16/2024 Sammie Meadows [facility] [address] [place], [place] [id number] 07/27/2024 R Dhiraj Elvi [facility] [address] [place], [place] [id number] 10/15/2024 R Dhiraj Elvi Insomnia G47.00 ; Restless leg G25.81 and Osteopenia M85.80 [facility] [address] [place], [place] [id number] 10/31/2024 Sammie Meadows [facility] [address] [place], [place] [id number] 12/06/2024 R Dhiraj Elvi Seasonal allergic rhinitis, unspecified trigger J30.2 [facility] [address] [facility] [address] [place], [place] [id number] 02/09/2025 R Dhiraj Elvi Breast cancer screen ing Z12.39 [facility] [address] [facility] [address] [place], [place] [id number] 02/11/2025 Trell [place] Assessments Encounter Date Diagnosis (ICD Code) Assessment Notes Treatment Notes Treatment Clinical Notes Section Notes 03/14/2024 Type 2 diabetes mellitus without complications (ICD-10 - E11.9) 04/20/2024 HTN (hypertension) (ICD-10 - I10) 03/14/2024 Neoplasm of uncertain behavior (ICD-10 - D48.9) 04/20/2024 Adult general medical examination (ICD-10 - Z00.00) Patient instructed to return to office Annually for Annual Wellness Visits to include annual screenings of Pain assessment, Functional Ability assessment, Cognitive Ability assessment, Fall Risk assessment, Depression screening and Bladder control screening. 05/29/2024 Encounter for immunization (ICD-10 - Z23) 10/15/2024 Insomnia (ICD-10 - G47.00) 10/26/2024 HTN (hypertension) (ICD-10 - I10) 10/26/2024 Physical debility (ICD-10 - R53.81) Patient is unable to use a cane and needs a walker to assist with her daily living 11/23/2024 Renal insufficiency (ICD-10 - N28.9) 11/23/2024 Seasonal allergic rhinitis, unspecified trigger (ICD-10 - J30.2) Her allergies have been getting worse. She has been using OTC loratadine and flonase. Will try dymista. May need to add singulair. 12/06/2024 Seasonal allergic rhinitis, unspecified trigger (ICD-10 - J30.2) 02/08/2025 HTN (hypertension) (ICD-10 - I10) 02/08/2025 Peripheral edema (ICD-10 - R60.9) 02/09/2025 Breast cancer screening (ICD-10 - Z12.39) 02/08/2025 Hyperlipidemia (ICD-10 - E78.5) 10/15/2024 Restless leg (ICD-10 - G25.81) 10/26/2024 Type 2 diabetes mellitus without complications (ICD-10 - E11.9) 04/20/2024 Type 2 diabetes mellitus without complications (ICD-10 - E11.9) 03/14/2024 Hyperlipidemia (ICD-10 - E78.5) 04/20/2024 Hyperlipidemia (ICD-10 - E78.5) 03/14/2024 Hypothyroidism (ICD-10 - E03.9) 10/15/2024 Osteopenia (ICD-10 - M85.80) 10/26/2024 Hyperlipidemia (ICD-10 - E78.5) 02/08/2025 Hypothyroidism (ICD-10 - E03.9) 10/26/2024 Hypothyroidism (ICD-10 - E03.9) 02/08/2025 Snoring (ICD-10 - R06.83) 04/20/2024 Hypothyroidism (ICD-10 - E03.9) 03/14/2024 HTN (hypertension) (ICD-10 - I10) 03/14/2024 Depression (ICD-10 - F32.9) 04/20/2024 Depression (ICD-10 - F32.9) 10/26/2024 Depression (ICD-10 - F32.9) 02/08/2025 Non morbid obesity (ICD-10 - E66.9) 02/08/2025 Renal insufficiency (ICD-10 - 593.9) 10/26/2024 Environmental allergies (ICD-10 - Z91.09) 04/20/2024 Environmental allergies (ICD-10 - Z91.09) 03/14/2024 Environmental allergies (ICD-10 - Z91.09) 03/14/2024 Osteopenia (ICD-10 - M85.80) 04/20/2024 Osteopenia (ICD-10 - M85.80) 10/26/2024 Restless leg (ICD-10 - G25.81) 10/26/2024 Gastroesophageal reflux disease without esophagitis (ICD-10 - K21.9) 04/20/2024 History of colon cancer (ICD-10 - Z85.038) 03/14/2024 Restless leg (ICD-10 - G25.81) 03/14/2024 Gastroesophageal reflux disease without esophagitis (ICD-10 - K21.9) 04/20/2024 Restless leg (ICD-10 - G25.81) 10/26/2024 Diabetic polyneuropathy associated with type 2 diabetes mellitus (ICD-10 - E11.42) 10/26/2024 Insomnia (ICD-10 - G47.00) 04/20/2024 Gastroesophageal reflux disease without esophagitis (ICD-10 - K21.9) 03/14/2024 Diabetic polyneuropathy associated with type 2 diabetes mellitus (ICD-10 - E11.42) 03/14/2024 Insomnia (ICD-10 - G47.00) 04/20/2024 Diabetic polyneuropathy associated with type 2 diabetes mellitus (ICD-10 - E11.42) 10/26/2024 History of colon cancer (ICD-10 - Z85.038) 10/26/2024 Osteopenia (ICD-10 - M85.80) 04/20/2024 Insomnia (ICD-10 - G47.00) 03/14/2024 exterminator termite (current) use of insulin (ICD-10 - Z79.4) 03/14/2024 JOSE LUIS (obstructive sleep apnea) (ICD-10 - G47.33) 04/20/2024 Pulmonary nodule (ICD-10 - R91.1) 10/26/2024 Pulmonary nodule (ICD-10 - R91.1) 10/26/2024 exterminator termite (current) use of insulin (ICD-10 - Z79.4) 04/20/2024 snf (current) use of insulin (ICD-10 - Z79.4) 04/20/2024 JOSE LUIS (obstructive sleep apnea) (ICD-10 - G47.33) 10/26/2024 JOSE LUIS (obstructive sleep apnea) (ICD-10 - G47.33) 04/20/2024 BMI 35.0-35.9,adult (ICD-10 - Z68.35) 04/20/2024 Osteoporosis screening (ICD-10 - Z13.820) 04/20/2024 Colon cancer screening (ICD-10 - Z12.11) 04/20/2024 Tobacco use disorder (ICD-10 - F17.200) Plan Of Treatment Pending Test Test Name Order Date sleep study 02/08/2025 Mammogram 02/09/2025 Next Appt Details Provider Name:Trell Gtuierres ry, 03/01/2025 02:15:00 PM, [address] [facility] [address], [address], [place], [place], [id number], Insurance Providers Payer Name Payer Address Payer Phone Subscriber Number Group Number Insured Name Patient Relationship to Insured Coverage Start Date Coverage End Date [employer] [address] [address] [place], [place] [id number] LOUIS MURPHY Self - patient is the insured Medical (General) History Medical History History ICD Code Hypertension allergies Hypothyroidism type 2 diabetes hyperlipidemia Chronic kidney disease Surgical History Surgery Date(Month/Year) tubal ligation 1982 colectomy [address] sinus [address] Hyatt, eyelid sugery 03/02/16 Hospitalization History Reason Date(Month/Year) [facility] 09/19
--- OUTSIDE RECORDS SUMMARY | 2025-02-15 15:03 | XMS_ITS ---
Author Organization Unknown Medications Date Medication Dosage DosageUnit StartDate StopDate StopReason Active DoseQuantity DoseUnit Dispense DispenseUnit Refills NdcCode DrugCode PharmacyId IsPrescription MappedMedication Srcstatus 01/29 00:00 :00 Alendronate Sodium 70 MG Tablet 1 12 Tablet 0 16 688042 301 Start 01/29 00:00 :00 Alendronate Sodium 70 MG Tablet 0 12 0 590116 69 712 Stop 11/23 00:00 :00 Alendronate Sodium 70 MG Tablet 1 12 0 133529 69 712 Taking 11/21 00:00 :00 Alendronate Sodium 70 MG Tablet 1 12 0 802563 69 712 Start 11/21 00:00 :00 Alendronate Sodium 70 MG Tablet 0 12 0 208221 69 712 Stop 10/26 00:00 :00 Alendronate Sodium 70 MG Tablet 1 12 Tablet 3 64 350801 214 Taking 10/26 00:00 :00 Alendronate Sodium 70 MG Tablet 1 12 0 397403 69 712 P Taking 10/15 00:00 :00 Alendronate Sodium 70 MG Tablet 1 12 0 021611 69 712 P Unknown Status 04/20 00:00 :00 Alendronate Sodium 70 MG Tablet 1 12 Tablet 3 64 180625 214 Taking 04/20 00:00 :00 Alendronate Sodium 70 MG Tablet 1 12 3 709464 69 712 P Taking 03/14 00:00 :00 Alendronate Sodium 70 MG Tablet 1 12 3 388120 69 712 P Unknown Status 03/14 00:00 :00 Alendronate Sodium 70 MG Tablet 1 12 Tablet 3 64 804293 214 Taking 03/03 00:00 :00 Alendronate Sodium 70 MG Tablet 1 12 Tablet 3 64 428772 214 Start 03/03 00:00 :00 Alendronate Sodium 70 MG Tablet 0 12 1 806953 69 712 Stop 12/06 00:00 :00 Azelastine- Fluticasone 137-50 MCG/ACT Suspension 11/23/2024 00:00:00 0 6252408 5 823 P Stop 11/23 00:00 :00 Azelastine- Fluticasone 137-50 MCG/ACT Suspension 11/23/2024 00:00:00 1 1 11 5704586 5 823 P Start 11/23 00:00 :00 BD LEONILA 2ND GEN PEN NEEDLE 4MM X 32G 03/16/2022 00:00:00 1 100 5 P Taking 10/26 00:00 :00 BD LEONILA 2ND GEN PEN NEEDLE 4MM X 32G 03/16/2022 00:00:00 1 100 5 P Taking 04/20 00:00 :00 BD LEONILA 2ND GEN PEN NEEDLE 4MM X 32G 03/16/2022 00:00:00 1 100 5 P Taking 03/14 00:00 :00 BD LEONILA 2ND GEN PEN NEEDLE 4MM X 32G 03/16/2022 00:00:00 1 100 5 P Taking 12/06 00:00 :00 Dymista 137-50 MCG/ACT Suspension 12/07/2024 00:00:00 1 1 11 3123215 4 523 P Start 11/23 00:00 :00 Farxiga 10 MG Tablet 1 90 Tablet 1 0031 0621 030 Taking 10/26 00:00 :00 Farxiga 10 MG Tablet 1 90 Tablet 1 0031 0621 030 Taking 05/17 00:00 :00 Farxiga 10 MG Tablet 1 90 Tablet 1 0031 0621 030 Start 05/17 00:00 :00 Farxiga 10 MG Tablet 0 90 Tablet 0 0031 0621 030 Stop 04/20 00:00 :00 Farxiga 10 MG Tablet 1 90 Tablet 0 0031 0621 030 Taking 03/14 00:00 :00 Farxiga 10 MG Tablet 1 90 Tablet 0 0031 0621 030 Taking 03/07 00:00 :00 Farxiga 10 MG Tablet 1 90 Tablet 0 003 0621 030 Start 03/07 00:00 :00 Farxiga 10 MG Tablet 0 90 Tablet 1 0031 0621 030 Stop 11/23 00:00 :00 Fluconazole 150 MG Tablet 07/27/2024 00:00:00 1 1 1 0298899 9 210 P Taking 10/26 00:00 :00 Fluconazole 150 MG Tablet 07/27/2024 00:00:00 1 1 1 8827538 9 210 P Taking 07/27 00:00 :00 Fluconazole 150 MG Tablet 07/27/2024 00:00:00 1 1 1 2448593 9 210 P Start 11/23 00:00 :00 Gabapentin 300 MG Capsule 08/18/2023 00:00:00 1 15 Capsule 0 26132762 661 P Taking 10/26 00:00 :00 Gabapentin 300 MG Capsule 08/18/2023 00:00:00 1 15 Capsule 0 06996313 661 P Taking 04/20 00:00 :00 Gabapentin 300 MG Capsule 08/18/2023 00:00:00 1 15 Capsule 0 89919950 661 P Taking 03/14 00:00 :00 Gabapentin 300 MG Capsule 08/18/2023 00:00:00 1 15 Capsule 0 18457757 661 P Taking 11/23 00:00 :00 Glimepiride 4 MG Tablet 1 180 1 505934 77 501 P Taking 10/26 00:00 :00 Glimepiride 4 MG Tablet 1 180 1 090483 77 501 P Taking 04/20 00:00 :00 Glimepiride 4 MG Tablet 1 180 1 581584 77 501 P Taking 03/14 00:00 :00 Glimepiride 4 MG Tablet 1 180 1 709068 77 501 P Taking 11/23 00:00 :00 HumaLOG KwikPen 100 UNIT/ML Solution Pen-injecto r 1 13064528 901 Taking 10/26 00:00 :00 HumaLOG KwikPen 100 UNIT/ML Solution Pen-injecto r 1 93378105 901 Taking 04/20 00:00 :00 HumaLOG KwikPen 100 UNIT/ML Solution Pen-injecto r 1 86166919 901 Taking 03/14 00:00 :00 HumaLOG KwikPen 100 UNIT/ML Solution Pen-injecto r 1 88623882 901 Taking 11/23 00:00 :00 hydrOXYzine HCl 25 MG Tablet 1 90 0 0755401 6 101 Taking 11/21 00:00 :00 hydrOXYzine HCl 25 MG Tablet 1 90 0 0882180 6 101 Start 11/21 00:00 :00 hydrOXYzine HCl 25 MG Tablet 0 90 0 8708304 6 101 Stop 10/26 00:00 :00 hydrOXYzine HCl 25 MG Tablet 1 180 Tablet 3 11930655 110 Taking 10/26 00:00 :00 hydrOXYzine HCl 25 MG Tablet 1 90 0 3389637 6 101 P Taking 10/15 00:00 :00 hydrOXYzine HCl 25 MG Tablet 1 90 0 9594998 6 101 P Unknown Status 04/20 00:00 :00 hydrOXYzine HCl 25 MG Tablet 1 180 Tablet 3 85270433 110 Taking 04/20 00:00 :00 hydrOXYzine HCl 25 MG Tablet 1 180 3 4141018 6 101 P Taking 03/14 00:00 :00 hydrOXYzine HCl 25 MG Tablet 1 180 3 6225086 6 101 P Unknown Status 03/14 00:00 :00 hydrOXYzine HCl 25 MG Tablet 1 180 Tablet 3 75851221 110 Taking 03/07 00:00 :00 hydrOXYzine HCl 25 MG Tablet 1 180 Tablet 3 72153085 110 Start 03/07 00:00 :00 hydrOXYzine HCl 25 MG Tablet 0 180 1 3901107 6 101 Stop 11/23 00:00 :00 Lantus SoloStar 100 UNIT/ML Solution Pen-injecto r 1 10299980 900 Taking 10/26 00:00 :00 Lantus SoloStar 100 UNIT/ML Solution Pen-injecto r 1 18408620 900 Taking 04/20 00:00 :00 Lantus SoloStar 100 UNIT/ML Solution Pen-injecto r 1 01029790 900 Taking 03/14 00:00 :00 Lantus SoloStar 100 UNIT/ML Solution Pen-injecto r 1 48619863 900 Taking 11/26 00:00 :00 Levothyroxi ne Sodium 137 MCG Tablet 1 90 Tablet 0 97482302 310 Start 11/26 00:00 :00 Levothyroxi ne Sodium 137 MCG Tablet 0 90 Tablet 0 50739251 310 Stop 11/23 00:00 :00 Levothyroxi ne Sodium 137 MCG Tablet 1 90 Tablet 0 72481270 310 Taking 10/26 00:00 :00 Levothyroxi ne Sodium 137 MCG Tablet 1 90 Tablet 0 10734800 310 Taking 10/17 00:00 :00 Levothyroxi ne Sodium 137 MCG Tablet 1 90 Tablet 0 72383149 310 Start 10/17 00:00 :00 Levothyroxi ne Sodium 137 MCG Tablet 0 90 Tablet 1 96995145 310 Stop 10/15 00:00 :00 Levothyroxi ne Sodium 137 MCG Tablet 1 90 Tablet 1 49053438 310 P Unknown Status 05/24 00:00 :00 Levothyroxi ne Sodium 137 MCG Tablet 1 90 Tablet 1 00604469 310 Start 05/24 00:00 :00 Levothyroxi ne Sodium 137 MCG Tablet 0 90 Tablet 0 58510364 310 Stop 04/20 00:00 :00 Levothyroxi ne Sodium 137 MCG Tablet 1 90 Tablet 0 60138472 310 Taking 03/14 00:00 :00 Levothyroxi ne Sodium 137 MCG Tablet 1 90 Tablet 0 10101264 310 Taking 03/12 00:00 :00 Levothyroxi ne Sodium 137 MCG Tablet 1 90 Tablet 0 47133269 310 Start 03/12 00:00 :00 Levothyroxi ne Sodium 137 MCG Tablet 0 90 Tablet 0 94366278 310 Stop 01/30 00:00 :00 Metoprolol Succinate ER 25 MG Tablet Extended Release 24 Hour 1 90 Tablet 0 4279024 8 910 Start 01/30 00:00 :00 Metoprolol Succinate ER 25 MG Tablet Extended Release 24 Hour 0 90 Tablet 0 8383717 8 910 Stop 11/23 00:00 :00 Metoprolol Succinate ER 25 MG Tablet Extended Release 24 Hour 1 90 Tablet 0 9531569 8 910 Taking 11/21 00:00 :00 Metoprolol Succinate ER 25 MG Tablet Extended Release 24 Hour 1 90 Tablet 0 5448338 8 910 Start 11/21 00:00 :00 Metoprolol Succinate ER 25 MG Tablet Extended Release 24 Hour 0 90 Tablet 0 1088580 6 410 Stop 10/26 00:00 :00 Metoprolol Succinate ER 25 MG Tablet Extended Release 24 Hour 1 90 3 54829110 510 P Taking 10/26 00:00 :00 Metoprolol Succinate ER 25 MG Tablet Extended Release 24 Hour 1 90 Tablet 0 6081705 6 410 P Taking 10/15 00:00 :00 Metoprolol Succinate ER 25 MG Tablet Extended Release 24 Hour 1 90 Tablet 0 2552628 6 410 P Unknown Status 04/20 00:00 :00 Metoprolol Succinate ER 25 MG Tablet Extended Release 24 Hour 1 90 Tablet 0 6988564 6 410 Taking 04/20 00:00 :00 Metoprolol Succinate ER 25 MG Tablet Extended Release 24 Hour 1 90 3 13152333 510 P Taking 03/14 00:00 :00 Metoprolol Succinate ER 25 MG Tablet Extended Release 24 Hour 1 90 3 15892319 510 P Unknown Status 03/14 00:00 :00 Metoprolol Succinate ER 25 MG Tablet Extended Release 24 Hour 1 90 Tablet 0 1668769 6 410 Taking 03/12 00:00 :00 Metoprolol Succinate ER 25 MG Tablet Extended Release 24 Hour 1 90 Tablet 0 2892880 6 410 Start 03/12 00:00 :00 Metoprolol Succinate ER 25 MG Tablet Extended Release 24 Hour 0 90 Tablet 0 8281797 6 410 Stop 03/03 00:00 :00 Metoprolol Succinate ER 25 MG Tablet Extended Release 24 Hour 1 90 Tablet 0 5350030 6 410 Start 03/03 00:00 :00 Metoprolol Succinate ER 25 MG Tablet Extended Release 24 Hour 0 90 1 53588603 510 Stop 11/23 00:00 :00 Mounjaro 5 MG/0.5M L Solution Auto-inject or 1 89449456 501 Taking 11/23 00:00 :00 Multivitami n 1 P Taking 10/26 00:00 :00 Multivitami n 1 P Taking 04/20 00:00 :00 Multivitami n 1 P Taking 03/14 00:00 :00 Multivitami n 1 P Taking 01/30 00:00 :00 Omeprazole 20 MG Capsule Delayed Release 1 90 Capsule 0 12904406 810 Start 01/30 00:00 :00 Omeprazole 20 MG Capsule Delayed Release 0 90 Capsule 0 50799725 810 Stop 11/23 00:00 :00 Omeprazole 20 MG Capsule Delayed Release 1 90 Capsule 0 24385311 810 Taking 11/21 00:00 :00 Omeprazole 20 MG Capsule Delayed Release 1 90 Capsule 0 67356959 810 Start 11/21 00:00 :00 Omeprazole 20 MG Capsule Delayed Release 0 90 Capsule 0 52574167 810 Stop 10/26 00:00 :00 Omeprazole 20 MG Capsule Delayed Release 1 90 3 03682112 801 P Taking 10/26 00:00 :00 Omeprazole 20 MG Capsule Delayed Release 1 90 Capsule 0 45765030 810 P Taking 10/15 00:00 :00 Omeprazole 20 MG Capsule Delayed Release 1 90 Capsule 0 07585366 810 P Unknown Status 04/20 00:00 :00 Omeprazole 20 MG Capsule Delayed Release 1 90 Capsule 0 46736751 810 Taking 04/20 00:00 :00 Omeprazole 20 MG Capsule Delayed Release 1 90 3 04466481 801 P Taking 03/14 00:00 :00 Omeprazole 20 MG Capsule Delayed Release 1 90 3 46361840 801 P Unknown Status 03/14 00:00 :00 Omeprazole 20 MG Capsule Delayed Release 1 90 Capsule 0 99393176 810 Taking 03/12 00:00 :00 Omeprazole 20 MG Capsule Delayed Release 1 90 Capsule 0 08254908 810 Start 03/12 00:00 :00 Omeprazole 20 MG Capsule Delayed Release 0 90 Capsule 0 42879345 810 Stop 03/03 00:00 :00 Omeprazole 20 MG Capsule Delayed Release 1 90 Capsule 0 17759012 810 Start 03/03 00:00 :00 Omeprazole 20 MG Capsule Delayed Release 0 90 1 68709089 801 Stop 10/26 00:00 :00 Ozempic (1 MG/DOSE) 4 MG/3ML Solution Pen-injecto r 1 4 5 19706156 001 P Taking 04/20 00:00 :00 Ozempic (1 MG/DOSE) 4 MG/3ML Solution Pen-injecto r 1 4 5 43540141 001 P Taking 03/14 00:00 :00 Ozempic (1 MG/DOSE) 4 MG/3ML Solution Pen-injecto r 1 4 5 80351540 001 P Taking 01/30 00:00 :00 Pramipexole Dihydrochlo ride 0.75 MG Tablet 1 90 Tablet 0 1 0272329 490 Start 01/30 00:00 :00 Pramipexole Dihydrochlo ride 0.75 MG Tablet 0 90 Tablet 0 1 2715789 490 Stop 11/23 00:00 :00 Pramipexole Dihydrochlo ride 0.75 MG Tablet 1 90 Tablet 0 1 8365620 490 Taking 11/21 00:00 :00 Pramipexole Dihydrochlo ride 0.75 MG Tablet 1 90 Tablet 0 1 6241243 490 Start 11/21 00:00 :00 Pramipexole Dihydrochlo ride 0.75 MG Tablet 0 90 0 77332 018 405 Stop 10/26 00:00 :00 Pramipexole Dihydrochlo ride 0.75 MG Tablet 1 90 Tablet 0 5 0170272 390 Taking 10/26 00:00 :00 Pramipexole Dihydrochlo ride 0.75 MG Tablet 1 90 0 22421 018 405 P Taking 10/15 00:00 :00 Pramipexole Dihydrochlo ride 0.75 MG Tablet 1 90 0 35969 018 405 P Unknown Status 04/20 00:00 :00 Pramipexole Dihydrochlo ride 0.75 MG Tablet 1 90 Tablet 0 5 4575996 390 Taking 04/20 00:00 :00 Pramipexole Dihydrochlo ride 0.75 MG Tablet 1 90 3 26319 018 405 P Taking 03/14 00:00 :00 Pramipexole Dihydrochlo ride 0.75 MG Tablet 1 90 3 37565 018 405 P Unknown Status 03/14 00:00 :00 Pramipexole Dihydrochlo ride 0.75 MG Tablet 1 90 Tablet 0 5 8063483 390 Taking 03/12 00:00 :00 Pramipexole Dihydrochlo ride 0.75 MG Tablet 1 90 Tablet 0 5 5537658 390 Start 03/12 00:00 :00 Pramipexole Dihydrochlo ride 0.75 MG Tablet 0 90 Tablet 0 5 6508860 390 Stop 03/03 00:00 :00 Pramipexole Dihydrochlo ride 0.75 MG Tablet 1 90 Tablet 0 5 2234699 390 Start 03/03 00:00 :00 Pramipexole Dihydrochlo ride 0.75 MG Tablet 0 90 1 86990 018 405 Stop 01/30 00:00 :00 Pravastatin Sodium 20 MG Tablet 1 180 Tablet 0 15508733 110 Start 01/30 00:00 :00 Pravastatin Sodium 20 MG Tablet 0 180 Tablet 0 70917567 110 Stop 11/23 00:00 :00 Pravastatin Sodium 20 MG Tablet 1 180 Tablet 0 40182626 110 Taking 11/21 00:00 :00 Pravastatin Sodium 20 MG Tablet 1 180 Tablet 0 95282332 110 Start 11/21 00:00 :00 Pravastatin Sodium 20 MG Tablet 0 180 0 277775 20 110 Stop 10/26 00:00 :00 Pravastatin Sodium 20 MG Tablet 1 180 0 458752 20 110 P Taking 10/15 00:00 :00 Pravastatin Sodium 20 MG Tablet 1 180 0 374343 20 110 P Unknown Status 04/20 00:00 :00 Pravastatin Sodium 20 MG Tablet 1 90 0 556121 20 110 Taking 03/14 00:00 :00 Pravastatin Sodium 20 MG Tablet 1 90 3 544046 20 110 P Unknown Status 03/14 00:00 :00 Pravastatin Sodium 20 MG Tablet 1 90 0 248273 20 110 Taking 03/12 00:00 :00 Pravastatin Sodium 20 MG Tablet 1 90 0 716315 20 110 Start 03/12 00:00 :00 Pravastatin Sodium 20 MG Tablet 0 90 0 449798 20 110 Stop 03/03 00:00 :00 Pravastatin Sodium 20 MG Tablet 1 90 0 078239 20 110 Start 03/03 00:00 :00 Pravastatin Sodium 20 MG Tablet 0 896365 20 110 Stop 01/30 00:00 :00 Ramipril 10 MG Capsule 1 90 Capsule 0 74851239 705 Start 01/30 00:00 :00 Ramipril 10 MG Capsule 0 90 Capsule 0 11671940 705 Stop 11/23 00:00 :00 Ramipril 10 MG Capsule 1 90 Capsule 0 49194790 705 Taking 11/21 00:00 :00 Ramipril 10 MG Capsule 1 90 Capsule 0 26766832 705 Start 11/21 00:00 :00 Ramipril 10 MG Capsule 0 90 Capsule 0 98947447 505 Stop 10/26 00:00 :00 Ramipril 10 MG Capsule 1 90 3 6671544 2 501 P Taking 10/26 00:00 :00 Ramipril 10 MG Capsule 1 90 Capsule 0 89836642 505 P Taking 10/15 00:00 :00 Ramipril 10 MG Capsule 1 90 Capsule 0 01985881 505 P Unknown Status 04/20 00:00 :00 Ramipril 10 MG Capsule 1 90 Capsule 0 19802259 505 Taking 04/20 00:00 :00 Ramipril 10 MG Capsule 1 90 3 4321956 2 501 P Taking 03/14 00:00 :00 Ramipril 10 MG Capsule 1 90 3 5077596 2 501 P Unknown Status 03/14 00:00 :00 Ramipril 10 MG Capsule 1 90 Capsule 0 37648407 505 Taking 03/12 00:00 :00 Ramipril 10 MG Capsule 1 90 Capsule 0 85645948 505 Start 03/12 00:00 :00 Ramipril 10 MG Capsule 0 90 Capsule 0 09386420 505 Stop 03/03 00:00 :00 Ramipril 10 MG Capsule 1 90 Capsule 0 66724907 505 Start 03/03 00:00 :00 Ramipril 10 MG Capsule 0 90 1 3871987 2 501 Stop 11/23 00:00 :00 Rolling Walker with seat - - 10/26/2024 00:00:00 1 1 0 P Taking 10/26 00:00 :00 Rolling Walker with seat - - 10/26/2024 00:00:00 1 1 0 P Start 01/30 00:00 :00 Sertraline HCl 100 MG Tablet 1 90 Tablet 0 16 976187 305 Start 01/30 00:00 :00 Sertraline HCl 100 MG Tablet 0 90 Tablet 0 16 461381 305 Stop 11/23 00:00 :00 Sertraline HCl 100 MG Tablet 1 90 Tablet 0 16 805373 305 Taking 11/21 00:00 :00 Sertraline HCl 100 MG Tablet 1 90 Tablet 0 16 502810 305 Start 11/21 00:00 :00 Sertraline HCl 100 MG Tablet 0 90 Tablet 0 65 491096 305 Stop 10/26 00:00 :00 Sertraline HCl 100 MG Tablet 1 90 3 548423 92 661 P Taking 10/26 00:00 :00 Sertraline HCl 100 MG Tablet 1 90 Tablet 0 65 381663 305 P Taking 10/15 00:00 :00 Sertraline HCl 100 MG Tablet 1 90 Tablet 0 65 913230 305 P Unknown Status 04/20 00:00 :00 Sertraline HCl 100 MG Tablet 1 90 Tablet 0 65 308187 305 Taking 04/20 00:00 :00 Sertraline HCl 100 MG Tablet 1 90 3 785082 92 661 P Taking 03/14 00:00 :00 Sertraline HCl 100 MG Tablet 1 90 3 215390 92 661 P Unknown Status 03/14 00:00 :00 Sertraline HCl 100 MG Tablet 1 90 Tablet 0 65 819639 305 Taking 03/12 00:00 :00 Sertraline HCl 100 MG Tablet 1 90 Tablet 0 65 815139 305 Start 03/12 00:00 :00 Sertraline HCl 100 MG Tablet 0 90 Tablet 0 65 611662 305 Stop 03/03 00:00 :00 Sertraline HCl 100 MG Tablet 1 90 Tablet 0 65 993081 305 Start 03/03 00:00 :00 Sertraline HCl 100 MG Tablet 0 90 1 304521 92 661 Stop
== END 2025-02-15 23:59 | disposition home or self-care (01) ==
LOC: RAD 15:00
PROVIDERS: PCP Physician Assistant; Visit Provider Family Medicine
DX: Z12.31 Encounter for screening mammogram for malignant neoplasm of breast (principal); R92.323 Mammographic fibroglandular density, bilateral breasts; Z80.3 Family history of malignant neoplasm of breast; Z85.038 Personal history of other malignant neoplasm of large intestine; Z85.820 Personal history of malignant melanoma of skin
CPT/HCPCS: 77063; 77067

== ENCOUNTER → 2025-05-27 07:52 | Outpatient (CLI) | payer MEDICARE, MEDICAID, SELFPAY ==
--- OUTSIDE RECORDS SUMMARY | 2025-02-08 10:30 | XMS_ITS ---
Author Organization [facility] Address 1210 [facility] [address] [id number] Care Team Providers Care Student Driving Instructor Name Role Phone Jose Enrique Boles Primary Care Provider Trell Rico Unavailable [phone] Allergies Allergen (clinical drug ingredient) Drug/Non Drug [...] Interpretation:Normal Performing Lab: Notes/Report: Test performed by [facility] [address] [place] [address] , [address], [place] [address] Danilo Kerr MD, Operations Business Partner CLIA: [id number] Sodium 140 135-145 mmol/L Potassium 4.4 3.5-5.3 [...] Interpretation:Normal Performing Lab: Notes/Report: Test performed by [facility] [address] [place] [address] , [place] [address] Danilo Kerr MD, Operations Business Partner CLIA: [id number] Thyroxine Free (free T4) 1.07 0.86-1.76 ng/dL P-TSH Reviewed date:02/11/2025 01:17:09 PM Interpretation:Normal Performing Lab: Notes/Report: Test performed by [facility] [address] [place] [address] , [address], [place] [address] Danilo Kerr MD, Operations Business Partner CLIA: [id number] TSH 4.63 0.43-5.25 mU/L P-Microalbumin/Creatinine, R andom Urine Sample Reviewed date:02/11/2025 01:17:09 PM Interpretation:35 Performing Lab: Notes/Report: Test performed by [facility] [address] [place] [address] , [address], [place] [address] Danilo Kerr MD, Operations Business Partner CLIA: [id number] Albumin/Creatinine Ratio, Urine 35 0-30 ug/m g Microalbumin, Urine, Random 4.8 Creatinine, Urine 137.7 REASON FOR VISIT swelling Medications Medication SIG (Take, Route, Frequency, Duration) Notes Start Date End Date Status Rolling Walker with seat - 1 as needed 10/26/2024 Active Fluconazole 150 MG 1 tablet Orally once daily 07/27/2024 Not-Taking Farxiga 10 MG TAKE 1 TABLET EVERY DAY; Duration: 90 days Active Gabapentin 300 MG 1 cap(s) orally 3 times a day; Duration: 5 day(s) 08/18/2023 Active Glimepiride 4 MG 2 tab(s) orally once a day; Duration: 90 days Active Lantus SoloStar 100 UNIT/ML 58 units subcutaneously Two times a day Active Multivitamin 1 TAB ONCE A DAY *Please review and pick correct strength-formula tion from Qonf options. If intended option is not shown, discontinue and re-order from Quick Search* Active BD LEONILA 2ND GEN PEN NEEDLE 4MM X 32G - ONCE DAILY E11.9 *Please review for potential replacement for e-prescription and drug interaction check* 03/16/2022 Active HumaLOG KwikPen 100 UNIT/ML as directed Subcutaneous Active Mounjaro 7.5 MG/0.5ML as directed Subcutaneous Active Furosemide 20 MG 1 tablet Orally Once a day; Duration: 30 days 02/08/2025 Active Mounjaro 5 MG/0.5ML as directed Subcutaneous Not-Taking Omeprazole 20 MG 1 capsule 1/2 to 1 hour before morning meal Orally Once a day; Duration: 90 days Active Pravastatin Sodium 20 MG TAKE 2 TABLETS BY MOUTH ONCE DAILY; Duration: 90 Active Pramipexole Dihydrochloride 0.75 MG TAKE 1 TABLET BY MOUTH AT BEDTIME; Duration: 90 Active Sertraline HCl 100 MG TAKE 1 TABLET BY MOUTH ONCE DAILY; Duration: 90 Active Metoprolol Succinate ER 25 MG TAKE 1 TABLET BY MOUTH ONCE DAILY; Duration: 90 Active Alendronate Sodium 70 MG TAKE 1 TABLET BY MOUTH WEEKLY WITH 8 OZ OF PLAIN WATER 30 MINUTES BEFORE FIRST FOOD, DRINK OR MEDS. STAY UPRIGHT FOR 30 MINS; Duration: 84 Active Dymista 137-50 MCG/ACT 1 spray in each nostril Nasally Twice a day 12/07/2024 Active Ramipril 10 MG TAKE 1 CAPSULE BY MOUTH ONCE DAILY; Duration: 90 Active Levothyroxine Sodium 137 MCG 1 tablet in the morning on an empty stomach Orally Once a day; Duration: 90 days Active hydrOXYzine HCl 25 MG 1 or 2 tab(s) orally once a day at bedtime as needed; Duration: 90 days Active Problems Problem Type SNOMED Code ICD Code Onset Dates Problem Status W/U Status Risk Notes Problem Obesity (133015406) Non morbid obesity (E66.9) Active confirmed Vital Signs Blood pressure systolic 120 mm Hg 02/09/20 25 Blood pressure diastolic 68 mm Hg 025 Heart Rate 72 /min 02/08/2025 Height 65 in 02/08/2025 Weight 226.8 lbs 02/08/2025 BMI 37.74 kg/m2 02/08/2025 Encounters Encounter Location Date Provider Diagnosis [facility] [address] [id number] 02/08/2025 Trell Rico Peripheral edema R60 .9 [...] 20 MG 1 tablet Orally Once a day; Duration: 30 days 02/08/2025 Pending Test Test Name Order Date sleep study 02/08/2025 Next Appt Details Follow Up: 3 Weeks, Reason: Progress Notes * LOUIS MURPHYDOB:1950 ( 74 yo F)Acc No.[id number]:02/08/2025 Progress Notes Patient: LOUIS CARABALLO Provider: Adam Rico M.D. :1950 A ge:74 Y S ex:Female Date:02/08/2025 Address:[address] [place] [id number] Pcp:Jose Enrique Boles Subjective: * Chief Complaints: [...] *Please review and pick correct strength-formulation from Medispan options. If intended option is not shown, [...] using a walker to assist with ambulation. H eart: R SR. L ungs: c lear to auscultation. E xtremities: 1 + bilateral pitting l eg edema. Assessment: * Assessment: 1. P eripheral edema [...] p latlet 314 100 - 400 * HougShavonne 02/08/2025 04:30 :16 PM EDT > Ida [...] > See phone encounter 5.?Snoring?Imaging: sleep study* Home Kamala Mcgee 02/12 11:31:50 AM EDT > faxed to [facility] 6.?Non morbid obesity?Imaging: sleep study* Home Kamala Mcgee 02/12 11:31:50 AM EDT > [...] p latlet 314 100 - 400 * Theo Shavonne 02/08/2025 04:30 :16 PM EDT > Ida Bolton 02/11/2025 01:16:59 PM EDT > See phone encounter * Procedure Codes: G 2211 Complex e/[place], [address] CBC WITH AUTO DIFF, G8950 PREHTN/HTN BP DOC INDCD F/U DOC, G8752 MOST RECENT SYSTOLIC BP < 140MM HG, G8754 MOST RECENT DIASTOLIC BP < 90MM HG, 1036F TOBACCO NON-USER, 3017F COLORECTAL CA SCREEN DOC REV * Preventive Medicine: Screening / Special Tests: C olonoscopy c olonoscopy performed 08/15/2024, polyps, diverticulosis, hemorrhoids, repeat 5 years. * Follow Up: 3 Weeks * Images: Billing Information: * Visit Code: 77160 Office Visit, Est Pt., Level 4. * Procedure Codes: G2211 Complex e/[place]. [address] CBC WITH AUTO DIFF. G8950 PREHTN/HTN BP DOC INDCD F/U DOC. G8752 MOST RECENT SYSTOLIC BP < 140MM HG. G8754 MOST RECENT DIASTOLIC BP < 90MM HG. 1036F TOBACCO NON-USER. 3017F COLORECTAL CA SCREEN DOC REV. * Electronic signature of Katarzyna Rico MD on 05/27/2025 at 07:56 AM EDT Sign off status: Pending * Provider: Adam Rico M.D. Date: 0 02/08/2025 Generated for Nena higgins/Miracle/eTransmitting on: 0 05/27/2025 07:56 AM EDT History and Physical Notes * HPI [...]
--- OUTSIDE RECORDS SUMMARY | 2025-03-01 10:15 | XMS_ITS ---
Author Organization [facility] Address [address] [facility] [address] [id number] Care Team Providers Care Director Of Distance Learning Name Role Phone Jose Enrique Boles Primary Care Provider Trell Rico Unavailable [phone] Allergies Allergen (clinical drug ingredient) Drug/Non Drug Allergy documented on EMR Reaction Allergy Type Onset Date Status doxycycline Doxycycline vomiting Drug Allergy Act marko codeine Codeine Unknown Drug Allergy Active REASON FOR VISIT 3 weeks Medications Medication SIG (Take, Route, Frequency, Duration) Notes Start Date End Date Status Pravastatin Sodium 20 MG TAKE 2 TABLETS BY MOUTH ONCE DAILY; Duration: 90 Active Omeprazole 20 MG 1 capsule 1/2 to 1 hour before morning meal Orally Once a day; Duration: 90 days Active Levothyroxine Sodium 137 MCG 1 tablet in the morning on an empty stomach Orally Once a day; Duration: 90 days Active Ramipril 10 MG TAKE 1 CAPSULE BY MOUTH ONCE DAILY; Duration: 90 Active Sertraline HCl 100 MG TAKE 1 TABLET BY MOUTH ONCE DAILY; Duration: 90 Active Pramipexole Dihydrochloride 0.75 MG TAKE 1 TABLET BY MOUTH AT BEDTIME; Duration: 90 Active Alendronate Sodium 70 MG TAKE 1 TABLET BY MOUTH WEEKLY WITH 8 OZ OF PLAIN WATER 30 MINUTES BEFORE FIRST FOOD, DRINK OR MEDS. STAY UPRIGHT FOR 30 MINS; Duration: 84 Active Metoprolol Succinate ER 25 MG TAKE 1 TABLET BY MOUTH ONCE DAILY; Duration: 90 Active Farxiga 10 MG TAKE 1 TABLET EVERY DAY; Duration: 90 days Active Gabapentin 300 MG 1 cap(s) orally 3 times a day; Duration: 5 day(s) 08/18/2023 Active hydrOXYzine HCl 25 MG 1 or 2 tab(s) oral ly once a day at bedtime as needed; Duration: 90 days Active Rolling Walker with seat - 1 as needed 10/26/2024 Active Dymista 137-50 MCG/ACT 1 spray in each nostril Nasally Twice a day 12/07/2024 Active Multivitamin 1 TAB ONCE A DAY *Please review and pick correct strength-formulat ion from CEINT options. If intended option is not shown, discontinue and re-order from Quick Search* Active BD LEONILA 2ND GEN PEN NEEDLE 4MM X 32G - ONCE DAILY E11.9 *Please review for potential replacement for e-prescription and drug interaction check* 03/16/2022 Active Glimepiride 4 MG 2 tab(s) orally once a day; Duration: 90 days Active Lantus SoloStar 100 UNIT/ML 58 units subcutaneously Two times a day Active HumaLOG KwikPen 100 UNIT/ML as directed Subcutaneous Active Furosemide 20 MG 1 tablet Orally Once a day; Duration: 30 days 02/08/2025 Active Mounjaro 7.5 MG/0.5ML as directed Subcutaneous Active Vital Signs Blood pressure systolic 132 mm Hg 03/01/20 25 Blood pressure diastolic 72 mm Hg 025 Heart Rate 87 /min 03/01/2025 Height 65 in 03/01/2025 Weight 222 lbs 03/01/2025 BMI 36.94 kg/m2 03/01/2025 Encounters Encounter Location Date Provider Diagnosis [facility] [address] [facility] [address] [place] [address], BARB [phone] 03/01/2025 Trell Rico Peripheral edema R60 .0 Assessments Encounter Date Diagnosis (ICD Code) Assessment Notes Treatment Notes Treatment Clinical Notes Section Notes 03/01/2025 Peripheral edema (ICD-10 - R60.0) Improving, continue current treatment Plan Of Treatment Medication Medication Name Sig Start Date Stop Date Notes Furosemide 20 MG 1 tablet Orally Once a day; Duration: 30 days 02/08/2025 Treatment Notes Assessment Notes Peripheral edema Improving, continue current treatment Next Appt Details Follow Up: 4 Weeks, Reason: Progress Notes * TALIB MURPHY:1950 ( 74 yo F)Acc No.[id number]:03/01/2025 Progress Notes Patient: LOUIS CARABALLO Provider: Adam Rico M.D. :1950 A ge:74 Y S ex:Female Date:03/01/2025 Address:[address] [place] [id number] Pcp:Jose Enrique Boles Subjective: * Chief Complaints: * 1 . 3 weeks. * HPI: C ardiology: 74 year old female presents with c/o Leg Edema P t here for 3 week f/u. Pt started on Furosemide 20mg 02/08. Pt states swelling is still pretty bad in the evening but in the morning she does not have any swelling in legs . * ROS: D ERMATOLOGY: no R fede. n o H marta. G ASTROENTEROLOGY: no N ausea. n o V omiting. U ROLOGY: no D ifficulty urinating. n o B lood in urine. * Medical History: H ypertension, Allergies, Hypothyroidism, Type 2 Diabetes, Hyperlipidemia, Chronic Kidney Ddisease. * Surgical History: T ubal Ligation 1981, Colectomy 2002, Sinus 2003, Choelcystectomy , Dr. Hyatt, eyelid sugery 03/02/2016. * Hospitalization/Major Diagno stic Procedure: [facility]. * Family History: F ather: , coronary artery disease,, diagnosed with Hypertension, Heart Disease. M other: , diagnosed with Heart Disease, Hypertension. 2 sister(s) - healthy. 1 son(s) , 2 daughter(s) . . lost girl at , 5yrs ago 2n daughter CHF. * Social History: C URRENT TOBACCO USE: No . E xercise: yes. Home smoke detector use: [...] day at bedtime as needed , Taking Dymista 137-50 MCG/ACT Suspension 1 [...] meal Orally Once a day , Taking Furosemide 20 MG Tablet 1 tablet Orally Once a day , Taking Levothyroxine Sodium 137 MCG Tablet 1 tablet in the morning on an empty stomach Orally Once a day , Discontinued Fluconazole 150 MG Tablet 1 tablet Orally once daily , Discontinued Mounjaro 5 MG/0.5ML Solution Auto-injector as directed Subcutaneous , Medication List reviewed and reconciled with the patient * Allergies: C odeine, Doxycycline: vomiting. Objective: * Vitals: W t: 222, Temp: 97.7, BP: 132/72, HR: 87, Nurse: nan, Ht: 65, BMI:36.94. * Examination: G eneral Examination: General Appearance: N AD, using a walker to assist with ambulation. H eart: R SR. L ungs: c lear to auscultation. E xtremities: t race bilateral pitting l eg edema. Assessment: * Assessment: 1. P eripheral edema - R60.0 (Primary) Plan: * Treatment: * Procedure Codes: G 2211 Complex e/m visit add on, 1036F TOBACCO NON-USER, G8783 BP SCR PRFRM RCMDD DEFIND SCR INTVL, G8752 MOST RECENT SYSTOLIC BP < 140MM HG, G8754 MOST RECENT DIASTOLIC BP < 90MM HG * Follow Up: 4 Weeks * Images: Billing Information: * Visit Code: 97148 Office Visit, Est Pt., Level 3. * Procedure Codes: G2211 Complex e/m visit add on. 1036F TOBACCO NON-USER. G8783 BP SCR PRFRM RCMDD DEFIND SCR INTVL. G8752 MOST RECENT SYSTOLIC BP < 140MM HG. G8754 MOST RECENT DIASTOLIC BP < 90MM HG. * Electronic signature of Katarzyna Rico MD on 05/27/2025 at 07:56 AM EDT Sign off status: Pending * Provider: Adam Rico M.D. Date: 0 03/01/2025 Generated for Nena higgins/Miracle/Eduardransmitting on: 0 05/27/2025 07:56 AM EDT History and Physical Notes * HPI (History of Present Illness) Category Sub-Category Detail Notes Category Not es Cardiology Leg Edema Pt here for 3 we ek f/u. Pt started on Furosemide 20mg 02/08. Pt states swelling is still pretty bad in the evening but in the morning she does not have any swelling in legs Examination Category Sub-Category Detail Notes Category Not es General Examination Heart: RSR Lungs: clear to auscultatio n Extremities: trace bilateral jerad ing leg edema General Appearance: NAD, using a walker to assist with ambulation
--- OUTSIDE RECORDS SUMMARY | 2025-03-29 09:45 | XMS_ITS ---
[facility] Address [address] [facility] [address] [id number] Care Team Providers Care Promotions Director Name Role Phone Jose Enrique Boles Primary Care Provider Trell Rico [phone] Allergies Allergen (clinical drug ingredient) Drug/Non Drug Allergy documented on EMR Reaction Allergy Type Onset Date Status doxycycline Doxycycline vomiting Drug Allergy Act marko codeine Codeine Unknown Drug Allergy Active REASON FOR VISIT 1 month f/u Encounters Encounter Location Date Provider Diagnosis [facility] [address] [phone] 03/29/2025 Trell Rico Plan Of Treatment No Information Progress Notes * LOUIS MURPHYDOB:1950 ( 74 yo F)Acc No.[id number]:03/29/2025 Progress Notes Patient: LOUIS CARABALLO Provider: Adam Rico M.D. :1950 A ge:74 Y S ex:Female Date:03/29/2025 Address:[address] [place] [phone] Pcp:Jose Enrique Boles Subjective: * Chief Complaints: * 1 . 1 month f/u. * ROS: D ERMATOLOGY: no R fede. [...] no, Smoking status: Does not smoke. * Allergies: C odeine, Doxycycline: vomiting. Objective: * Vitals: Assessment: Plan: * Treatment: * Images: Billing Information: * Visit Code: * Procedure Codes: * Electronic signature of Katarzyna Rico MD on 05/27/2025 at 07:56 AM EDT Sign off status: Pending * Provider: Adam Rico M.D. Date: 03/29/2025 Generated for Nena higgins/Miracle/Cathyitting on: 05/27/2025 07:56 AM EDT
--- OUTSIDE RECORDS SUMMARY | 2025-04-12 10:15 | XMS_ITS ---
Author Organization [facility] Address [address] [facility] [address] [id number] Care Team Providers Care Competitive Intelligence Analyst Name Role Phone Jose Enrique Boles Primary Care Provider [phone] Trell Rico Unavailable [phone] Allergies Allergen (clinical drug ingredient) Drug/Non Drug Allergy documented on EMR Reaction Allergy Type Onset Date Status doxycycline Doxycycline vomiting Drug Allergy Act marko codeine Codeine Unknown Drug Allergy Active Results Component Value Reference Range Notes Glucose (In-House) Reviewed date:04/12/2025 04:13:11 PM Interpretation: Performing Lab: Notes/Report: blood glucose 135 74 - 106 mg/dL Glycohemoglobin A1c (in hous e) Reviewed date:04/12/2025 04:12:57 PM Interpretation:8.6 Performing Lab: Notes/Report: 8.6 glycohemoglobin 8.6% 5 - 6.5 % P-Basic Metabolic Panel (BMP ) Reviewed date:04/15/2025 08:46:23 AM Interpretation:gluc 111, bun 26, Cr 1.27, gfr 45 Performing Lab: Notes/Report: CLIA: [id number] Danilo Kerr MD, Fire Safety Inspector [facility] , [address], [place] [address] Test performed by [employer], [facility] Sodium 138 135-145 mmol/L Potassium 4.5 3.5-5.3 mmol/L Chloride 101 97-108 mmol/L CO2 25 20-32 mmol/L Glucose 111 65-99 mg/dL BUN 26 8-23 mg/dL Creatinine 1.27 0.50-1.00 mg/dL Calcium 9.2 8.6-10.4 mg/dL eGFR by Creatinine 45 >59 mL/min/1.73m2 REASON FOR VISIT 1 month ckup Medications Medication SIG (Take, Route, Frequency, Duration) Notes Start Date End Date Status Levothyroxine Sodium 137 MCG 1 tablet in the morning on an empty stomach Orally Once a day; Duration: 90 days Active Pravastatin Sodium 20 MG TAKE 2 TABLETS BY MOUTH ONCE DAILY; Duration: 90 Active Omeprazole 20 MG 1 capsule 1/2 to 1 hour before morning meal Orally Once a day; Duration: 90 days Active Furosemide 20 MG TAKE 1 TABLET BY MOUTH DAILY Active Pramipexole Dihydrochloride 0.75 MG TAKE 1 TABLET BY MOUTH AT BEDTIME; Duration: 90 Active Sertraline HCl 100 MG TAKE 1 TABLET BY MOUTH ONCE DAILY; Duration: 90 Active Alendronate Sodium 70 MG TAKE 1 TABLET BY MOUTH WEEKLY WITH 8 OZ OF PLAIN WATER 30 MINUTES BEFORE FIRST FOOD, DRINK OR MEDS. STAY UPRIGHT FOR 30 MINS; Duration: 84 Active hydrOXYzine HCl 25 MG 1 or 2 tab(s) oral ly once a day at bedtime as needed; Duration: 90 days Active Dymista 137-50 MCG/ACT 1 spray in each nostril Nasally Twice a day 12/07/2024 Active Mupirocin 2 % 1 application Externally Twice a day 04/12/2025 Active BD LEONILA 2ND GEN PEN NEEDLE 4MM X 32G - ONCE DAILY E11.9 *Please review for potential replacement for e-prescription and drug interaction check* 03/16/2022 Active Multivitamin 1 TAB ONCE A DAY *Please review and pick correct strength-formulat ion from [email or web address] options. If intended option is not shown, discontinue and re-order from Quick Search* Active Rolling Walker with seat - 1 as needed 10/26/2024 Active Gabapentin 300 MG 1 cap(s) orally 3 times a day; Duration: 5 day(s) 08/18/2023 Active Lantus SoloStar 100 UNIT/ML 58 units subcutaneously Two times a day Active Glimepiride 4 MG 2 tab(s) orally once a day Active Farxiga 10 MG TAKE 1 TABLET EVERY DAY Active Metoprolol Succinate ER 25 MG TAKE 1 TABLET BY MOUTH ONCE DAILY Active Ramipril 10 MG TAKE 1 CAPSULE BY MOUTH ONCE DAILY Active Mounjaro 7.5 MG/0.5ML as directed Subcutaneous Active HumaLOG KwikPen 100 UNIT/ML as directed Subcutaneous Active Vital Signs Blood pressure systolic 122 mm Hg 04/12/20 25 Blood pressure diastolic 70 mm Hg 025 Heart Rate 75 /min 04/12/2025 Height 65 in 04/12/2025 Weight 226.8 lbs 04/12/2025 BMI 37.74 kg/m2 04/12/2025 Encounters Encounter Location Date Provider Diagnosis [facility] [address] [place], [place] [id number] 04/12/2025 Trell Rico Type 2 diabetes mellitus without complication, without long-term current use of insulin E11.9 ; HTN (hypertension) I10 ; Peripheral edema R60.0 and Skin rash R21 Assessments Encounter Date Diagnosis (ICD Code) Assessment Notes Treatment Notes Treatment Clinical Notes Section Notes 04/12/2025 Type 2 diabetes mellitus without complication, without long-term current use of insulin (ICD-10 - E11.9) 04/12/2025 HTN (hypertension) (ICD-10 - I10) 04/12/2025 Peripheral edema (ICD-10 - R60.0) 04/12/2025 Skin rash (ICD-10 - R21) Plan Of Treatment Medication Medication Name Sig Start Date Stop Date Notes Furosemide 20 MG TAKE 1 TABLET BY MOUTH DAILY Mupirocin 2 % 1 application Consumer Insight Manager ally Twice a day 04/12/2025 Lantus SoloStar 100 UNIT/ML 58 units sub cutaneously Two times a day Glimepiride 4 MG 2 tab(s) orally once a day Farxiga 10 MG TAKE 1 TABLET EVERY DAY Metoprolol Succinate ER 25 MG TAKE 1 TABLET BY MOUTH ONCE DAILY Ramipril 10 MG TAKE 1 CAPSULE BY MO UTH ONCE DAILY Mounjaro 7.5 MG/0.5ML as directed Subcutaneous HumaLOG KwikPen 100 UNIT/ML as directed Subcutaneous Next Appt Details Follow Up: 6 Months, Reason: Progress Notes * LOUIS MURPHYDOB:1950 ( 74 yo F)Acc No.[id number]:04/12/2025 Progress Notes Patient: LOUIS CARABALLO Provider: Adam Rico M.D. :1950 A ge:74 Y S ex:Female Date:04/12/2025 Address:[address] [place] [address], [id number] Pcp:Jose Enrique Boles Subjective: * Chief Complaints: * 1 . 1 month ckup. * HPI: C ardiology: 74 year old female presents with c/o Leg Edema P t here for 1 month checkup. Pt was started on Furosemide 20 mg 02/08. Pt states sometimes she feels like it helps and other times there is no improvement in swelling. Pt states swelling is worse in the morning and at the end of the day . D ermatology: c/o skin lesion P t complains of spot on top of her head that is red and does have some drainage. Pt states she will be seeing dermatology but would like to have the spot looked at today. * ROS: D ERMATOLOGY: no R fede. [...] meal Orally Once a day , Taking Levothyroxine Sodium 137 MCG Tablet 1 tablet in the morning on an empty stomach Orally Once a day , Taking Furosemide 20 MG Tablet TAKE 1 TABLET BY MOUTH DAILY , Discontinued Diflucan 150 MG Tablet 1 tablet Orally daily , Medication List reviewed and reconciled with the patient * Allergies: C odeine, Doxycycline: vomiting. Objective: * Vitals: W t: 226.8, Temp: 97.8, BP: 122/70, HR: 75, Nurse: pe, Ht: 65, BMI:37.74. * Examination: G eneral Examination: General Appearance: N AD, using a walker to assist with ambulation. H eart: R SR. L ungs: c lear to auscultation. S kin: t op of scalp has a 3 cm wide a raw, reddened area of skin, no drainage or eschar. E xtremities: n o leg edema. Assessment: * Assessment: 1. T ype 2 diabetes mellitus without complication, without long-term current use of insulin - E11.9 (Primary) 2 . H TN (hypertension) - I10 3 . P eripheral edema - R60.0 4 . S kin rash - R21 Plan: * Treatment: Value Reference Range b lood glucose 135 74 - 106 mg/dL * Ricarda Gupta 04/12/2025 02:43:1 4 PM EDT > Provider reviewed results while patient in office.Trell Rico 04/12/2025 04:13:07 PM EDT > ?LAB: Glycohemoglobin A1c (in house) (Collection Date & Time - 04/12/2025)? 8.6* Value Reference Range g lycohemoglobin 8.6% 5 - 6.5 % * Vicki Ribera 04/12/2025 02 :48:10 PM EDT > Provider reviewed results while patient in office.Trell Rico 04/12/2025 04:12:51 PM EDT > 2.?HTN (hypertension)? Continue Metoprolol Succinate ER Tablet Extended Release 24 Hour, 25 MG, TAKE 1 TABLET BY MOUTH ONCE DAILY;?Continue Ramipril Capsule, 10 MG, TAKE 1 CAPSULE BY MOUTH ONCE DAILY.??3.?Peripheral edema? Continue Furosemide Tablet, 20 MG, TAKE 1 TABLET BY MOUTH DAILY.?LAB: P-Basic Metabolic Panel (BMP) (Collection Date & Time - 04/12/2025 02:05 PM)?gluc 111, bun 26, Cr 1.27, gfr 45* Value Reference Range B UN 26 H 8-23 - mg/dL * C alcium 9.2 8.6-10.4 - mg/dL * C hloride 101 97-108 - mmol/L * C O2 25 20-32 - mmol/L * C reatinine 1.27 H 0.50-1.00 - mg/dL * G lucose 111 H 65-99 - mg/dL * P otassium 4.5 3.5-5.3 - mmol/L * S odium 138 135-145 - mmol/L * e GFR by Creatinine 45 L >59 - mL/min/1.73m2 * Dayana Chaudhary 04/15/2025 08:4 6:15 AM EDT > See phone encounter 4.?Skin rash? Start Mupirocin Ointment, 2 %, 1 application, Externally, Twice a day, 22 grams, Refills 0.? * Procedure Codes: G 2211 Complex e/[place], [address] GLUCOSE TEST, 67573 GLYCATED HEMOGLOBIN TEST, Modifiers: QW , 3052F HG A1C>EQUAL 8.0%<EQUAL 9.0%, G8950 PREHTN/HTN BP DOC INDCD F/U DOC, G8752 MOST RECENT SYSTOLIC BP < 140MM HG, G8754 MOST RECENT DIASTOLIC BP < 90MM HG, 1036F TOBACCO NON-USER * Follow Up: 6 Months * Images: Billing Information: * Visit Code: 32392 Office Visit, Est Pt., Level 4. * Procedure Codes: G2211 Complex e/[place]. [address] GLUCOSE TEST. 56441 GLYCATED HEMOGLOBIN TEST. Modifiers: QW 3052F HG A1C>EQUAL 8.0%<EQUAL 9.0%. G8950 PREHTN/HTN BP DOC INDCD F/U DOC. G8752 MOST RECENT SYSTOLIC BP < 140MM HG. G8754 MOST RECENT DIASTOLIC BP < 90MM HG. 1036F TOBACCO NON-USER. * Electronic signature of Katarzyna Rico MD on 05/27/2025 at 07:55 AM EDT Sign off status: Pending * Provider: Adam Rico M.D. Date: 0 04/12/2025 Generated for Nena higgins/Miracle/Cathyitting on: 0 05/27/2025 07:55 AM EDT History and Physical Notes * HPI (History of Present Illness) Category Sub-Category Detail Notes Category Not es Dermatology skin lesion Pt complains of spot on top of her head that is red and does have some drainage. Pt states she will be seeing dermatology but would like to have the spot looked at today Cardiology Leg Edema Pt here for 1 mo nt checkup. Pt was started on Furosemide 20 mg 02/08. Pt states sometimes she feels like it helps and other times there is no improvement in swelling. Pt states swelling is worse in the morning and at the end of the day Examination Category Sub-Category Detail Notes Category Not es General Examination Heart: RSR Lungs: clear to auscultatio n Extremities: no leg edema General Appearance: NAD, using a walker to assist with ambulation Skin: top of scalp has a 3 cm wide a raw, reddened area of skin, no drainage or eschar
--- OUTSIDE RECORDS SUMMARY | 2025-05-27 07:55 | XMS_ITS | Clinical Summary ---
Author Organization [facility] Address [address] [place] [address] Care Team Providers Care Organic Extractions Technician Name Role Phone Sammie Meadows Primary Care Provider [phone] Allergies Active Allergy Reactions Criticality Noted Date [...] 09/21/2022 Stress incontinence 09/21/2022 Urinary urgency 09/21/2022 Vaginal atrophy 09/21/2022 Resolved Problems Problem Noted Date Diagnosed Date Resolved Date Nocturia 09/21/2022 05/26/2025 Family History Medical History Relation Name Comments [...] 2002 [facility]-Zoster Vaccines (1 of 2) 2002 [id number] Vaccine ( - 2023- season) 2025 [facility]-Influenza Vaccine (#1) 2025 [facility]-RSV Vaccine: 60+ Years o r [...] patient's age to complete this topic Insurance [place] [facility] MEDICARE Care Teams Organic Extractions Technician Relationship Specialty Start Date End Date Sammie Meadows PA [address] [place] [address] [facility] - General 07/13/22
--- OUTSIDE RECORDS SUMMARY | 2025-05-27 07:57 | XMS_ITS | Clinical Summary ---
Author Organization [facility] Address [address] [place] [id number] Care Team Providers Care Od Grinder Operator Name Role Phone Bret Boles MD [...] Active Problems No known active problems Immunizations Immunization Administration Dates Next Due Fluzone (or Fluarix [...] 81 08/24/2019 5:18 PM EST Temperature 37.1 C (98.7 F) 08/24/2019 5:18 PM EST Respiratory Rate 15 08/24/2019 5:18 PM EST Oxygen Saturation 98% 08/24/2019 5:18 PM EST Inhaled Oxygen Concentration - - Weight 88.9 kg (196 lb) 08/24/2019 5:18 PM EST Height 165.1 cm (5' 5 ) 08/24/2019 5:18 PM EST Body Mass Index 32.62 08/24/2019 5:18 PM EST Plan of Treatment Health Maintenance Due Date Last Done Comments DXA SCAN 1950 MAMMOGRAM 1992 COLOGUARD 1997 COLON CANCER SCREENING 5 RADHAA R SIGMOIDOSCOPY 1997 COLONOSCOPY 1997 COL[address]AL CANCER SCREENING 1997 CT COLONOGRAPHY 1997 FECAL OCCULT BLOOD TEST 1997 FIT Testing (1 year) 1997 ZOSTER VACCINE (1 of 2) 2002 ANNUAL PHYSICAL 03/10/2017 HEPATITIS C SCREENING 03/10/2017 Pneumococcal Vaccine 50+ (2 of 2 - PPSV23) 09/02/2018 09/02/2017 INFLUENZA VACCINE 04/05/2025 06/21/2019 COVID-19 Vaccine ( - season) 2025 TDAP/TD VACCINES (3 - Td or Tdap) 06/21/2029 019, 09/04/2018 Insurance [id number] MEDICARE ADVANTAGE Care Teams Od Grinder Operator Relationship Specialty Start Date End Date Bret Boles MD [address] [place] [address] [address] [place] [address] PCP - General Family Medicine 04/27/16
--- OUTSIDE RECORDS SUMMARY | 2025-05-27 07:57 | XMS_ITS | Patient Health Record ---
Author Organization [facility] Address [address] [facility] [address] [id number] Care Team Providers [facility] Receptionist Name Role Phone Jose Enrique Boles Primary Care Provider Trisha Trell Unavailable [phone] Sammie Meadows Unavailable [phone] Allergies Allergen (clinical drug ingredient) Drug/Non Drug [...] Cr 1.27, gfr 45 Performing Lab: Notes/Report: Test performed by [facility], [place] [address] [place] [address] , [address], [place] [address] Danilo Kerr MD, Gyroscopic Instrument Mechanic CLIA: [id number] Sodium 138 135-145 mmol/L Potassium 4.5 3.5-5.3 mmol/L Chloride 101 97-108 mmol/L CO2 25 20-32 mmol/L Glucose 111 65-99 mg/dL BUN 26 8-23 mg/dL Creatinine 1.27 0.50-1.00 mg/dL Calcium 9.2 8.6-10.4 mg/dL eGFR by Creatinine 45 >59 mL/min/1.73m2 P-Basic Metabolic Panel (BMP ) Reviewed date:11/28/2024 11:10:09 AM Interpretation: Performing Lab: Notes/Report: CLIA: [id number] Danilo Kerr MD, Gyroscopic Instrument Mechanic [address] [place] [address] , [place] [id number] Test performed by [facility] Sodium 138 135-145 mmol/L Potassium 4.6 3.5-5.3 mmol/L Chloride 104 97-108 mmol/L CO2 23 22-32 mmol/L Glucose 199 65-99 mg/dL BUN 30 8-23 mg/dL Creatinine 1.13 0.50-1.00 mg/dL Calcium 8.9 8.6-10.4 mg/dL eGFR by Creatinine 52 >59 mL/min/1.73m2 P-TSH Reviewed date:10/31/2024 08:57:38 AM Interpretation:Normal Performing Lab: Notes/Report: CLIA: [id number] Danilo Kerr MD, Gyroscopic Instrument Mechanic [address] [place] [address] , [place] [address] Test performed by [facility] TSH 2.68 0.43-5.25 mU/L P-Lipid Panel Reviewed date:10/31/2024 08:57:38 AM Interpretation:trigs 298, chol/hdl 4.78, non-hdl 151 Performing Lab: Notes/Report: Test performed by [facility] [address] [place] [address] , [place] [address] Danilo Kerr MD, Gyroscopic Instrument Mechanic CLIA: [id number] Cholesterol 191 <200 mg/dL Triglycerides 298 <150 [...] Results: 91 Units: mg/dL % Change: -3% P-T4 Free (thyroxine) Reviewed date:10/31/2024 08:57:38 AM Interpretation:Normal Performing Lab: Notes/Report: Test performed by [facility], [address] , [facility], [place] [address] Danilo Kerr MD, Gyroscopic Instrument Mechanic CLIA: [id number] Thyroxine Free (free T4) 1.35 0.86-1.76 ng/dL P-Comprehensive Metabolic Pa gillian (CMP) Reviewed date:10/31/2024 08:57:38 AM Interpretation:gluc 255, bun 33, Cr 1.25, gfr 46 Performing Lab: Notes/Report: Test performed by [facility] , [address], [place] [address] Danilo Kerr MD, Gyroscopic Instrument Mechanic CLIA: [id number] Sodium 136 135-145 mmol/L Potassium 4.8 3.5-5.3 [...] 0.5 <0.2-1.2 mg/dL A/G Ratio 1.2 1.1-2.5 Glycohemoglobin A1c (in hous e) Reviewed date:10/31/2024 08:57:38 AM Interpretation:9.2% Performing Lab: Notes/Report: 9.2% glycohemoglobin 9.2% 5 - 6.5 % CBC Venipuncture (in house) Reviewed date:10/26/2024 04:56:13 [...] - 38 platlet 314 100 - 400 CBC Venipuncture (in house) Reviewed date:02/11/2025 01:17:09 [...] Interpretation:Normal Performing Lab: Notes/Report: Test performed by [facility] [address] [place] [address] , [address], [place] [address] Danilo Kerr MD, Gyroscopic Instrument Mechanic CLIA: [id number] Sodium 140 135-145 mmol/L Potassium 4.4 3.5-5.3 [...] Interpretation:Normal Performing Lab: Notes/Report: Test performed by [facility] [address] [place] [address] , [address], [place] [address] Danilo Kerr MD, Gyroscopic Instrument Mechanic CLIA: [id number] Thyroxine Free (free T4) 1.07 0.86-1.76 ng/dL P-TSH Reviewed date:02/11/2025 01:17:09 PM Interpretation:Normal Performing Lab: Notes/Report: Test performed by [facility] [address] [place] [address] , [address], [place] [address] Danilo Kerr MD, Gyroscopic Instrument Mechanic CLIA: [id number] TSH 4.63 0.43-5.25 mU/L P-Microalbumin/Creatinine, R andom Urine Sample Reviewed date:02/11/2025 01:17:09 PM Interpretation:35 Performing Lab: Notes/Report: Test performed by [facility], [place] [address] [place] [address] , [address], [place] [address] Danilo Kerr MD, Gyroscopic Instrument Mechanic CLIA: [id number] Albumin/Creatinine Ratio, Urine 35 0-30 ug/m g Microalbumin, Urine, Random 4.8 Creatinine, Urine 137.7 Mammogram Reviewed date:02/26/2025 09:25:20 AM Interpretation:Negative Performing Lab: Notes/Report: Negative result neg Medications Medication SIG (Take, Route, Frequency, Duration) Notes Start Date End Date Status Mounjaro 7.5 MG/0.5ML as directed Subcutaneous Active Alendronate Sodium 70 MG TAKE 1 TABLET BY MOUTH WEEKLY WITH 8 OZ OF PLAIN WATER 30 MINUTES BEFORE FIRST FOOD, DRINK OR MEDS. STAY UPRIGHT FOR 30 MINS; Duration: 84 Active Mupirocin 2 % 1 application Externally Twice a day 04/12/2025 Active HumaLOG KwikPen 100 UNIT/ML as directed Subcutaneous Active Omeprazole 20 MG 1 capsule 1/2 to 1 hour before morning meal Orally Once a day; Duration: 90 days Active BD LEONILA 2ND GEN PEN NEEDLE 4MM X 32G - ONCE DAILY E11.9 *Please review for potential replacement for e-prescription and drug interaction check* 03/16/2022 Active Multivitamin 1 TAB ONCE A DAY *Please review and pick correct strength-formulat ion from neo[employer]urgical options. If intended option is not shown, discontinue and re-order from Quick [facility]* Active Sertraline HCl 100 MG 1 tablet Orally On ce a day; Duration: 90 days Active Lantus SoloStar 100 UNIT/ML 58 units subcutaneously Two times a day Active Pramipexole Dihydrochloride 0.75 MG 1 tablet at bedtime Orally Once a day; Duration: 90 days Active Glimepiride 4 MG 2 tab(s) orally once a day Active Metoprolol Succinate ER 25 MG 1 tablet Orally Once a day; Duration: 90 days Active Pravastatin Sodium 20 MG 2 tablets Orally Once a day; Duration: 90 days Active Farxiga 10 MG TAKE 1 TABLET EVERY DAY Active hydrOXYzine HCl 25 MG 2 tablets orally Once a day; Duration: 90 days Active Rolling Walker with seat - 1 as needed 10/26/2024 Active Ramipril 10 MG 1 capsule Orally Once a day; Duration: 30 days Active Gabapentin 300 MG 1 cap(s) orally 3 times a day; Duration: 5 day(s) 08/18/2023 Active Levothyroxine Sodium 137 MCG 1 tablet in the morning on an empty stomach Orally Once a day; Duration: 90 days Active Furosemide 20 MG TAKE 1 TABLET BY MOUTH DAILY Active Dymista 137-50 MCG/ACT 1 spray in each nostril Nasally Twice a day 12/07/2024 Active Immunizations Vaccine Route Administration Date Status Comme nts COVID 19 Moderna Unknown 11/25/2020 Administered COVID 19 Moderna Unknown 12/26/2020 Administered COVID 19 Moderna Unknown 08/06/2021 Administered Fluzone High Dose (65yr and older) IM Intramuscular 06/05/2018 Administered Fluzone High Dose (65yr and older) Unknown 06/21/2019 Administered Fluzone High Dose (65yr and older) Unknown 06/09/2020 Administered Fluzone High Dose (65yr and older) Unknown 06/04/2022 Administered Fluzone High Dose (65yr and older) Unknown 06/20/2023 Administered Fluzone High Dose (65yr and older) IM Intramuscular 05/29/2024 Administered Fluzone PF Quad (6-35 months) Unknown 06/22/2016 Administered Fluzone PF Quad (6-35 months) Unknown 06/28/2017 Administered Fluzone Quad (6months&older) Unknown 07/10/2015 Administered Fluzone Quad (6months&older) IM Intramuscular 06/22/2016 Administered Fluzone Quad (6months&older) Unknown 06/28/2017 Administered Fluzone Quad-Medicare (6months&older) Unknown 06/16/2021 Administered Hepatitis A (adult) IM Intramuscular 01/11/2019 Administer ed Hepatitis A (adult) Unknown 01/11/2019 Administered PNEUMOVAX 23 VACCINE IM Intramuscular 11/04/2020 Administe red Prevnar (PCV13) Unknown 09/02/2017 Administered Prevnar (PCV13) Unknown 09/02/2018 Administered Prevnar (PCV20) IM Intramuscular 05/29/2024 Administered Shingrix Unknown 07/16/2017 Administered Shingrix IM Intramuscular 11/04/2020 Administered Tetanus Tdap-Adacel (over 7yrs) IM Intramuscular 09/04/2018 Administered Tetanus Tdap-Adacel (over 7yrs) IM Intramuscular 06/21/2019 Administered Tetanus Tdap-Adacel (over 7yrs) Unknown 06/21/2019 Administered Problems Problem Type SNOMED Code ICD Code Onset Dates Problem Status W/U Status Risk Notes Problem Type II diabetes mellitus without complication (487369851) Type 2 diabetes mellitus without complications (E11.9) Active confirmed Problem Essential hypertension (18079802) Essential (primary) hypertension (I10) Active confirmed Problem Insomnia (619735133) Insomnia (G47.00) Active confirmed Problem Hypertension (74742286) HTN (hypertension) (I10) Active confirmed Problem Hyperlipidemia (61958511) Hyperlipidemia (E78.5) Active confirmed Problem Osteopenia (274966757) Osteopenia (M85.80) Active confirmed Problem History of malignant neoplasm of colon (955590715) History of colon cancer (Z85.038) Active confirmed Problem Mixed anxiety and depressive disorder (386812408) Depression with anxiety (F41.8) Active confirmed Problem Environmental allergy (908410332) Environmental allergies (Z91.09) Active confirmed Problem Primary insomnia (5253243) Primary insomnia (F51.01) Active confirmed Problem Dependence on enabling machine or device (235420719) Dependence on other enabling machines and devices (Z99.89) Active confirmed Problem Pulmonary nodule (937033903) Pulmonary nodule (R91.1) Active confirmed Problem Long-term current use of insulin (413660565) rn placement (current) use of insulin (Z79.4) Active confirmed Problem Obese class II (953600473980673) BMI 35.0-35.9,adult (Z68.35) Active confirmed Problem Restless legs (39527997) Restless leg (G25.81) Active confirmed Problem Gastroesophageal reflux disease without esophagitis (615423279) Gastroesophageal reflux disease without esophagitis (K21.9) Active confirmed Problem Hypothyroidism (47318353) Hypothyroidism (E03.9) Active confirmed Problem Depression (168597057) Depression (F32.9) Active confirmed Problem Obstructive sleep apnea syndrome (08848300) JOSE LUIS (obstructive sleep apnea) (G47.33) Active confirmed Problem Polyneuropathy due to type 2 diabetes mellitus (424868285) Diabetic polyneuropathy associated with type 2 diabetes mellitus (E11.42) Active confirmed Problem Body mass index 30.00 to 34.99 (575096955408006) BMI 31.0-31.9,adult (Z68.31) Active confirmed Problem Sciatica (10551286) Low back kerry n with radiation, unspecified laterality (M54.40) Active confirmed Problem Type II diabetes mellitus without complication (000132792) Type 2 diabetes mellitus without complication, without long-term current use of insulin (E11.9) Active confirmed Problem Polyneuropathy due to type 2 diabetes mellitus (104494834) Type 2 diabetes mellitus with diabetic polyneuropathy, without long-term current use of insulin (E11.42) Active confirmed Problem Tobacco use (943200144) Tobacco use disorder (F17.200) Active confirmed Problem Irritable bowel syndrome (54188336) Irritable bowel syndrome with both constipation and diarrhea (K58.2) Active confirmed Problem Obesity (467591283) Non morbid o besity (E66.9) Active confirmed Problem Seasonal allergic rhinitis (583686915) Seasonal allergic rhinitis, unspecified trigger (J30.2) Active confirmed Problem Hyperglycemia due to type 2 diabetes mellitus (058848540240107) Uncontrolled type 2 diabetes mellitus with hyperglycemia (E11.65) Active confirmed Vital Signs Heart Rate 75 /min 04/12/2025 Blood pressure diastolic 70 mm Hg 04/12/2025 Height 65 in 04/12/2025 Blood pressure systolic 122 mm Hg 04/12/2025 Weight 226.8 lbs 04/12/2025 BMI 37.74 kg/m2 04/12/2025 Encounters Encounter Location Date Provider Diagnosis [facility] [address] [facility] [address] [place] [id number] 05/29/2024 Sammie Meadows Encounter for immunization Z23 [facility] [address] [place] [id number] 10/26/2024 Sammie Meadows Physical debility R5 3.81 [...] Osteopenia M85.80 ; Pulmonary nodule R91.1 ; rn placement (current) use of insulin Z79.4 and JOSE LUIS (obstructive sleep apnea) G47.33 [facility] [address] [place], [place] [id number] 11/23/2024 Sammie Meadows Seasonal allergic rhinitis, unspecified trigger J30.2 and Renal insufficiency N28.9 [facility] [address] [place], [place] [id number] 02/08/2025 Trell Bulverde Peripheral edema R60 .9 ; HTN (hypertension) I10 ; Hyperlipidemia E78.5 ; Hypothyroidism E03.9 ; Snoring R06.83 ; Non morbid obesity E66.9 and Renal insufficiency 593.9 [facility] [address] [place], [place] [id number] 03/01/2025 Trell Bulverde Peripheral edema R60 .0 [facility] [address] [place], [place] [id number] 04/12/2025 Trell Bulverde Type 2 diabetes cristhian itus without complication, without long-term current use of insulin E11.9 ; HTN (hypertension) I10 ; Peripheral edema R60.0 and Skin rash R21 [facility] [address] [place], [place] [id number] 07/27/2024 R Dhiraj Elvi [facility] [address] [place], [place] [id number] 10/15/2024 R Dhiraj Elvi Insomnia G47.00 ; Restless leg G25.81 and Osteopenia M85.80 [facility] [address] [place], [place] [id number] 10/31/2024 Sammie Meadows [facility] [address] [place], [place] [id number] 12/06/2024 R Dhiraj Elvi Seasonal allergic rhinitis, unspecified trigger J30.2 [facility] [address] [place], [place] [id number] 02/09/2025 Jose Enrique Boles Breast cancer screen ing Z12.39 [facility] [address] [place], [place] [id number] 02/11/2025 Trell Bulverde [facility] [address] [place], [place] [id number] 03/05/2025 Trell Bulverde [facility] [address] [place], [place] [id number] 03/22/2025 Sammie Meadows [facility] [address] [place] [id number] 04/15/2025 Trell Bulverde [facility] [address] [place] [id number] 04/29/2025 Jose Enrique Boles Assessments Encounter Date Diagnosis (ICD Code) Assessment Notes Treatment Notes Treatment Clinical Notes Section Notes 05/29/2024 Encounter for immunization (ICD-10 - Z23) [...] 02/09/2025 Breast cancer screening (ICD-10 - Z12.39) 03/01/2025 Peripheral edema (ICD-10 - R60.0) Improving, continue current treatment 04/12/2025 HTN (hypertension) (ICD-10 - I10) 04/12/2025 Type 2 diabetes mellitus without complication, without long-term current use of insulin (ICD-10 - E11.9) 04/12/2025 Peripheral edema (ICD-10 - R60.0) 02/08/2025 Hyperlipidemia (ICD-10 - E78.5) 10/15/2024 Restless leg (ICD-10 - G25.81) 10/26/2024 Type 2 diabetes mellitus without complications (ICD-10 - E11.9) 10/26/2024 Hyperlipidemia (ICD-10 - E78.5) 10/15/2024 Osteopenia (ICD-10 - M85.80) 02/08/2025 Hypothyroidism (ICD-10 - E03.9) 04/12/2025 Skin rash (ICD-10 - R21) 02/08/2025 Snoring (ICD-10 - R06.83) 10/26/2024 Hypothyroidism (ICD-10 - E03.9) 10/26/2024 Depression (ICD-10 - F32.9) 02/08/2025 Non morbid obesity (ICD-10 - E66.9) 02/08/2025 Renal insufficiency (ICD-10 - 593.9) 10/26/2024 Environmental allergies (ICD-10 - Z91.09) 10/26/2024 Restless leg (ICD-10 - G25.81) 10/26/2024 Gastroesophageal reflux disease without esophagitis (ICD-10 - K21.9) 10/26/2024 Diabetic polyneuropathy associated with type 2 diabetes mellitus (ICD-10 - E11.42) 10/26/2024 Insomnia (ICD-10 - G47.00) 10/26/2024 History of colon cancer (ICD-10 - Z85.038) 10/26/2024 Osteopenia (ICD-10 - M85.80) 10/26/2024 Pulmonary nodule (ICD-10 - R91.1) 10/26/2024 [facility] (current) use of insulin (ICD-10 - Z79.4) 10/26/2024 JOSE LUIS (obstructive sleep apnea) (ICD-10 - G47.33) Plan Of Treatment Pending Test Test Name Order Date sleep study 02/08/2025 sleep study 03/05/2025 Insurance Providers Payer Name Payer Address Payer Phone Subscriber Number Group Number Insured Name Patient Relationship to Insured Coverage Start Date Coverage End Date [employer]ARE [address] [address] [place], [place] [id number] LOUIS MURPHY Self - patient is the insured Medical (General) History Medical History History ICD Code Hypertension Allergies Hypothyroidism Type 2 Diabetes Hyperlipidemia Chronic Kidney Ddisease Surgical History Surgery Date(Month/Year) Tubal Ligation 1982 Colectomy [address] Sinus [address] Hyatt, eyelid sugery 03/02/2016 Hospitalization History Reason Date(Month/Year) [facility] 09/2014
== END ==
LOC: SL 07:54
PROVIDERS: PCP Family Medicine; Visit Provider Family Medicine
DX: I10 Essential (primary) hypertension (principal); E66.9 Obesity, unspecified; R06.83 Snoring
CPT/HCPCS: G0399